=== PATIENT | female | born 1945 | race Caucasian/White ===

== ENCOUNTER → 2016-06-08 | Outpatient (CLI) | payer BC ==
[~2016-06-08] MED LIST: ALBUAER2 INH; AMLO-3; ATOR-22 PO; DORZ1SOL OPR; FERR325T51 PO; METF1TAB85; MULT-884; NEBI10TA2 PO; PANT40TA PO; SITA50TA5; SYMIN
--- NOTE | 2016-06-08 12:37 | MAMMOGRAPHY REPORT ---
BILATERAL DIGITAL SCREENING MAMMOGRAM WITH CAD: 06/08/2016 CLINICAL HISTORY: Routine screening. Patient has no complaints. TECHNIQUE: Bilateral CC and MLO views with repeat MLO views for more anterior compression were obta ined. Current study was also evaluated with a Computer Aided Detection (CAD) system. COMPARISON: Comparison is made to exams dated: 06/06/2015 mammogram, 04/20/2013 mammogram, 06/05/20 14 mammogram - [facility], and 07/08/2007. BREAST COMPOSITION: There are scattered areas of fibroglandular density in both breasts. FINDINGS: There is stable focal asymmetry in the right upper outer posterior breast. Scattered and grouped stable microcalcifications bilaterally. There are also benign rim calcifications in the rosalinda asts. No new suspicious mass, architectural distortion or cluster of microcalcifications is seen. IMPRESSION: ACR BI-RADS CATEGORY 1: NEGATIVE There is no mammographic evidence of malignancy. A 1 year screening mammogram is recommended. The p atient will receive written notification of the results. Approximately 10% of breast cancers are not detected with mammography. A negative mammographic repor t should not delay biopsy if a clinically suggestive mass is present. Antoinette Zamarripa M.D. ay/:06/08/2016 11:12:50 Records Management Assistant: Jane ZELAYA(R)(M), [facility] letter sent: Normal 1/2 BI-RADS Code: ACR BI-RADS Category 1: Negative
== END | disposition home or self-care (01) ==
LOC: C.MAMM 10:42
PROVIDERS: ATTEND Internal Medicine
DX: Z12.31 Encounter for screening mammogram for malignant neoplasm of breast (principal)

== ENCOUNTER → 2016-06-30 | Outpatient (CLI) | payer BC ==
[2016-06-30 12:22] LABS: BASO % 0.2 %; BASO ABS # 0.01 K/uL (0-0.2); COMPLETE YES; EOS % 3.1 %; HEMATOCRIT 34.1 % (37-47); IG% 0.2 %; LYMPH % 24.7 %; MEAN CELL VOLUME 87.9 fL (80-100); MEAN CORPUSCULAR HEMOGLOBIN 28.9 pg (25-34); MEAN CORPUSCULAR HGB CONC 32.8 g/dl (32-36); MEAN PLATELET VOLUME 11.3 fL (7.4-10.4); MONO % 8.9 %; NEUT % 62.9 %; PLATELET COUNT 225 K/uL (130-400); RED BLOOD COUNT 3.88 M/uL (4.2-5.4); WHITE BLOOD COUNT 6.07 K/uL (4.8-10.8)
[2016-06-30 12:24] LABS: BLOOD UREA NITROGEN 20 mg/dl (7-18); GLUCOSE 110 mg/dl (70-99)
[2016-06-30 12:25] LABS: ALT/SGPT 15 U/L (12-78); BUN/CREATININE RATIO 16.7 (10-20); CALCIUM 9.3 mg/dl (8.5-10.1); CARBON DIOXIDE 25 mmol/L (21-32); CHLORIDE 106 mmol/L (98-107); CHOLESTEROL 132 mg/dl (0-200); POTASSIUM 4.2 mmol/L (3.5-5.1); SODIUM 143 mmol/L (136-145); TRIGLYCERIDES 114 mg/dl (0-150); VERY LOW DENSITY LIPOPROT CALC 23 mg/dl
[2016-06-30 12:28] LABS: ESTIMATED AVERAGE GLUCOSE 126 mg/dl; HA1C FLAG Normal (Normal)
[2016-06-30 12:35] LABS: ALKALINE PHOSPHATASE 70 U/L (45-117); AST/SGOT 14 U/L (15-37); CHOLESTEROL/HDL RATIO 2.5; HDL CHOLESTEROL 53 mg/dl; LDL CHOLESTEROL CALCULATED 56 mg/dl
--- NOTE | 2016-07-06 13:41 | CODING QUERY MEDICAL NECESSITY ---
SUPPORTING DIAGNOSIS NEEDED A supporting diagnosis is required for the test/procedure performed on this patient in order for us to be reimbursed by the patient's insurance. Please provide a supporting diagnosis for the following test/procedure listed below next to the test name along with your signature. *If there is no additional diagnosis for this patient that would support the following test/procedure please document that below next to the test/procedure. Test(s)/Procedure(s) that require a supporting diagnosis: DOS 06/30 * Hba1c DIAGNOSIS: * Lipids DIAGNOSIS: * TSH DIAGNOSIS: Provider Signature: Date: Thank you Venita Kay Health Information Management Once completed, please kindly fax back to [phone] For questions please call [phone]
== END | disposition home or self-care (01) ==
LOC: C.LABBFT 11:05
PROVIDERS: ATTEND Internal Medicine
DX: G47.33 Obstructive sleep apnea (adult) (pediatric) (principal); E11.9 Type 2 diabetes mellitus without complications; E78.5 Hyperlipidemia, unspecified; D64.9 Anemia, unspecified

== ENCOUNTER → 2016-11-06 | Outpatient (CLI) | payer BC ==
[~2016-11-06] MED LIST changes: +AMLO5CAP2 PO; +ASPCH81X PO; +ASPEC81 PO; +DORZ2SOL17 OPR; +FERR1TAB23 PO; +FRRS300 PO; +LVNIS30 SQ; +METF-382 PO; +MULT-506 PO; +PRAMCRE2 PR; +SITA50TA5 PO; +SYMIN160 INH; +VNTHFA/IN INH
[2016-11-06 10:12] LABS: BASO % 0.3 %; BASO ABS # 0.02 K/uL (0-0.2); COMPLETE YES; EOS % 2.7 %; HEMATOCRIT 33.7 % (37-47); IG% 0.1 %; LYMPH % 17.7 %; LYMPH ABS # 1.19 K/uL (1.2-3.4); MEAN CELL VOLUME 89.9 fL (80-100); MEAN CORPUSCULAR HEMOGLOBIN 29.3 pg (25-34); MEAN CORPUSCULAR HGB CONC 32.6 g/dl (32-36); MEAN PLATELET VOLUME 11.2 fL (7.4-10.4); MONO % 9.7 %; NEUT % 69.5 %; PLATELET COUNT 202 K/uL (130-400); RED BLOOD COUNT 3.75 M/uL (4.2-5.4); WHITE BLOOD COUNT 6.71 K/uL (4.8-10.8)
[2016-11-06 10:54] LABS: FERRITIN 33.3 ng/ml (8.0-388.0)
== END | disposition home or self-care (01) ==
LOC: C.LAB 09:12
PROVIDERS: ATTEND Internal Medicine Hematology & Oncology
DX: D50.9 Iron deficiency anemia, unspecified (principal)

== ENCOUNTER → 2016-11-19 | Outpatient (CLI) | payer BC ==
--- NOTE | 2016-11-19 12:12 | DIAGNOSTIC IMAGING REPORT ---
ABDOMINAL ULTRASOUND COMPLETE HISTORY: ANEMIA. COMPARISON: None. FINDINGS: Pancreas: The pancreas demonstrates a normal echotexture. Liver: Unremarkable. Gallbladder: No gallbladder wall thickening. No gallstones. CBD: 6 mm Kidneys: Considerable cortical thinning bilaterally. No evidence for hydronephrosis. 4 cm upper pole right renal cyst. Spleen: Normal in size. Aorta: Normal in caliber. IVC: Patent. IMPRESSION: 1. Considerable cortical thinning and scarring of the kidneys bilaterally. 2. No evidence for hydronephrosis. 3. Right renal cyst. 4. Otherwise negative study Electronically signed by: Victoriano Swan M.D. 11/19/2016 12:10 PM Dictated Date/Time: 11/19/2016 12:06 PM
== END | disposition home or self-care (01) ==
LOC: C.ULTR 10:35
PROVIDERS: ATTEND Internal Medicine Hematology & Oncology
DX: D50.9 Iron deficiency anemia, unspecified (principal); N28.1 Cyst of kidney, acquired

== ENCOUNTER → 2017-01-01 | Outpatient (CLI) | payer BC ==
[~2017-01-01] MED LIST changes: -AMLO5CAP2 PO; -ASPCH81X PO; -ASPEC81 PO; -DORZ2SOL17 OPR; -FERR1TAB23 PO; -FRRS300 PO; -LVNIS30 SQ; -METF-382 PO; -MULT-506 PO; -PRAMCRE2 PR; -SITA50TA5 PO; -SYMIN160 INH; -VNTHFA/IN INH
[2017-01-01 13:45] LABS: BLOOD UREA NITROGEN 20 mg/dl (7-18); BUN/CREATININE RATIO 15.2 (10-20); CALCIUM 9.7 mg/dl (8.5-10.1); CARBON DIOXIDE 27 mmol/L (21-32); CHLORIDE 109 mmol/L (98-107); GLUCOSE 127 mg/dl (70-99); POTASSIUM 4.4 mmol/L (3.5-5.1); SODIUM 144 mmol/L (136-145)
[2017-01-01 14:35] LABS: ESTIMATED AVERAGE GLUCOSE 128 mg/dl; HA1C FLAG Normal (Normal)
== END | disposition home or self-care (01) ==
LOC: C.LABBC 11:44
PROVIDERS: ATTEND Internal Medicine
DX: E11.22 Type 2 diabetes mellitus with diabetic chronic kidney disease (principal); N18.3 Chronic kidney disease, stage 3 (moderate)

== ENCOUNTER → 2017-01-11 | Outpatient (CLI) | payer BC ==
[2017-01-11 15:29] LABS: BLOOD UREA NITROGEN 20 mg/dl (7-18); BUN/CREATININE RATIO 15.7 (10-20); CALCIUM 9.4 mg/dl (8.5-10.1); CARBON DIOXIDE 27 mmol/L (21-32); CHLORIDE 107 mmol/L (98-107); GLUCOSE 128 mg/dl (70-99); POTASSIUM 4.7 mmol/L (3.5-5.1); SODIUM 142 mmol/L (136-145)
[2017-01-11 15:30] LABS: PHOSPHORUS 3.4 mg/dl (2.5-4.9)
[2017-01-11 16:45] LABS: MANUAL MICROSCOPIC REQUIRED? NO; REVIEW REQ? NO; URINE APPEARANCE TURBID (CLEAR); URINE BILIRUBIN NEG (NEG); URINE COLOR DK YELLOW; URINE EPITHELIAL CELL AUTO >30 /lpf (0-5); URINE NITRITE NEG (NEG); URINE SPECIFIC GRAVITY 1.025 (1.000-1.030); UROBILINOGEN NEG (NEG)
[2017-01-11 17:11] LABS: URINE PROTIEN/CREAT RATIO 0.1 (0-0.2); URINE TOTAL PROTEIN 27.8 mg/dl (0-11.9)
== END | disposition home or self-care (01) ==
LOC: C.LAB1850 14:07
PROVIDERS: ATTEND Internal Medicine Nephrology
DX: N18.3 Chronic kidney disease, stage 3 (moderate) (principal)

== ENCOUNTER → 2017-02-10 | Outpatient (CLI) | payer BC | END | disposition home or self-care (01) | LOC: C.PATHSPEC 17:18 | PROVIDERS: ATTEND Plastic Surgery | DX: L82.1 Other seborrheic keratosis (principal) ==

== ENCOUNTER → 2017-02-12 | Outpatient (CLI) | payer BC ==
[2017-02-12 17:08] LABS: BLOOD UREA NITROGEN 24 mg/dl (7-18); BUN/CREATININE RATIO 18.3 (10-20); CALCIUM 8.9 mg/dl (8.5-10.1); CARBON DIOXIDE 26 mmol/L (21-32); CHLORIDE 110 mmol/L (98-107); GLUCOSE 134 mg/dl (70-99); POTASSIUM 4.4 mmol/L (3.5-5.1); SODIUM 141 mmol/L (136-145)
[2017-02-12 17:09] LABS: PHOSPHORUS 3.2 mg/dl (2.5-4.9)
== END | disposition home or self-care (01) ==
LOC: C.LAB1850 15:17
PROVIDERS: ATTEND Internal Medicine Nephrology
DX: N18.3 Chronic kidney disease, stage 3 (moderate) (principal)

== ENCOUNTER → 2017-04-21 | Day surgery (SDC) | payer BC ==
[2017-04-01 09:58] VITALS: Ht 160 cm; Wt 93.6 kg
[~2017-04-21] VITALS: Ht 160 cm; Wt 93.6 kg
[~2017-04-21] MED LIST changes: -ALBUAER2 INH; -AMLO-3; +AMLO5CAP2 PO; +ASPEC81 PO; -DORZ1SOL OPR; +DORZ2SOL17 OPR; +FERR1TAB23 PO; -FERR325T51 PO; +FRRS300 PO; +LVNIS30 SQ; +METF-382 PO; -METF1TAB85; +MULT-506 PO; -MULT-884; +PRAMCRE2 PR; -SITA50TA5; +SITA50TA5 PO; -SYMIN; +SYMIN160 INH; +VNTHFA/IN INH
== END | disposition home or self-care (01) ==
LOC: EDSTATUS 07:30 → C.PAT 12:03
PROVIDERS: ATTEND Specialist
DX: H26.9 Unspecified cataract (principal)

== ENCOUNTER → 2017-05-20 | Outpatient (CLI) | payer BC, OTHER | END | disposition home or self-care (01) | LOC: C.RDSM 13:15 | PROVIDERS: ATTEND Orthopaedic Surgery Sports Medicine | DX: Z96.7 Presence of other bone and tendon implants (principal) ==

== ENCOUNTER → 2017-06-30 | Outpatient (CLI) | payer BC ==
--- NOTE | 2017-06-30 14:40 | DIAGNOSTIC IMAGING REPORT ---
R PELVIS UNI HIP 2-3 V CLINICAL HISTORY: Follow-up right hip surgery. COMPARISON: Pelvis and right hip radiographs May 20 2017. FINDINGS: 3 cannulated right femoral neck screws are placed. Alignment of the subcapital right femoral neck fracture is anatomic. Subtle sclerosis is noted. These represent expected findings. No additional fractures are identified. Interval note is made of a bone island within the right superior pubic ramus. IMPRESSION: Expected findings following proximal right femoral internal fixation. Anatomic alignment of fracture with subtle sclerosis at fracture site. Electronically signed by: Adan Snider M.D. 06/30/2017 2:38 PM Dictated Date/Time: 06/30/2017 2:27 PM
== END | disposition home or self-care (01) ==
LOC: C.RDSM 19:34
PROVIDERS: ATTEND Physician Assistant
DX: Z09 Encounter for follow-up examination after completed treatment for conditions other than malignant neoplasm (principal)

== ENCOUNTER → 2017-07-20 | Outpatient (CLI) | payer BC ==
--- NOTE | 2017-07-21 15:22 | MAMMOGRAPHY REPORT ---
BILATERAL DIGITAL SCREENING MAMMOGRAM TOMOSYNTHESIS WITH CAD: 07/20/2017 CLINICAL HISTORY: Routine screening. Patient has no complaints. TECHNIQUE: Breast tomosynthesis in addition to standard 2D mammography was performed. Current study was also evaluated with a Computer Aided Detection (CAD) system. COMPARISON: Comparison is made to exams dated: 06/08/2016 mammogram, 06/06/2015 mammogram, 06/05/2014 mammogram, 04/20/2013 mammogram - [facility], 07/08/2007, and 01/20/2005 mammogram - [facility]. BREAST COMPOSITION: There are scattered areas of fibroglandular density in both breasts. FINDINGS: There is stable focal asymmetry with associated microcalcification in the upper outer post erior right breast, which appears similar on all available prior mammograms dating back to at least 1 06/20/2012, therefore likely benign. There are stable benign-appearing calcifications in the left sup erior breast. No suspicious mass, architectural distortion or cluster of microcalcifications is seen . IMPRESSION: ACR BI-RADS CATEGORY 1: NEGATIVE There is no mammographic evidence of malignancy. A 1 year screening mammogram is recommended. The pa tient will receive written notification of the results. Approximately 10% of breast cancers are not detected with mammography. A negative mammographic report should not delay biopsy if a clinically suggestive mass is present. Antoinette Zamarripa M.D. ay/:07/20/2017 16:15:38 Obstetrics Gyn: Blanca ZELAYA(Maty)([place]), [facility] letter sent: Normal 1/2 BI-RADS Code: ACR BI-RADS Category 1: Negative
== END | disposition home or self-care (01) ==
LOC: C.MAMM 09:58
PROVIDERS: ATTEND Internal Medicine
DX: Z12.31 Encounter for screening mammogram for malignant neoplasm of breast (principal)

== ENCOUNTER → 2017-08-02 | Outpatient (CLI) | payer BC | END | disposition home or self-care (01) | LOC: C.MAMM 09:53 | PROVIDERS: ATTEND Internal Medicine | DX: M85.88 Other specified disorders of bone density and structure, other site (principal) ==

== ENCOUNTER → 2017-08-06 | Outpatient (CLI) | payer BC | END | disposition home or self-care (01) | LOC: C.LABBFT 15:26 | PROVIDERS: ATTEND Internal Medicine Nephrology | DX: N18.3 Chronic kidney disease, stage 3 (moderate) (principal); D64.9 Anemia, unspecified; I25.10 Atherosclerotic heart disease of native coronary artery without angina pectoris; K22.70 Barrett's esophagus without dysplasia; Z68.36 Body mass index [BMI] 36.0-36.9, adult; E11.9 Type 2 diabetes mellitus without complications; E78.5 Hyperlipidemia, unspecified; I10 Essential (primary) hypertension; G47.33 Obstructive sleep apnea (adult) (pediatric); I27.29 Other secondary pulmonary hypertension ==

== ENCOUNTER → 2017-09-03 | Outpatient (CLI) | payer BC | END | disposition home or self-care (01) | LOC: C.LAB1850 08:37 | PROVIDERS: ATTEND Internal Medicine Rheumatology | DX: D47.2 Monoclonal gammopathy (principal); N18.3 Chronic kidney disease, stage 3 (moderate); S72.001A Fracture of unspecified part of neck of right femur, initial encounter for closed fracture; M80.00XA Age-related osteoporosis with current pathological fracture, unspecified site, initial encounter for fracture; E55.9 Vitamin D deficiency, unspecified; X58.XXXA Exposure to other specified factors, initial encounter ==

== ENCOUNTER → 2017-09-30 | Outpatient (CLI) | payer BC ==
[~2017-09-30] MED LIST changes: -ASPEC81 PO; +ASPI-320 PO
== END | disposition home or self-care (01) ==
LOC: C.RDSM 15:31
PROVIDERS: ATTEND Orthopaedic Surgery Sports Medicine
DX: Z96.7 Presence of other bone and tendon implants (principal)

== ENCOUNTER → 2017-12-30 | Outpatient (CLI) | payer BC ==
[~2017-12-30] MED LIST changes: -ASPI-320 PO; +ASPI81TA28 PO; +CALC-354 PO; -DORZ2SOL17 OPR; +DORZ2SOL19 OPR; -FRRS300 PO; -LVNIS30 SQ; -PRAMCRE2 PR
[2017-12-30 17:05] LABS: BASO % 0.1 %; BASO ABS # 0.01 K/uL (0-0.2); EOS % 1.9 %; EOS ABS # 0.13 K/uL (0-0.5); HEMATOCRIT 36.5 % (37-47); HEMOGLOBIN 11.7 g/dL (12.0-16.0); IG# 0.01 K/uL (0.00-0.02); LYMPH % 20.7 %; LYMPH ABS # 1.42 K/uL (1.2-3.4); MEAN CELL VOLUME 88.8 fL (80-100); MEAN CORPUSCULAR HEMOGLOBIN 28.5 pg (25-34); MEAN CORPUSCULAR HGB CONC 32.1 g/dl (32-36); MEAN PLATELET VOLUME 10.9 fL (7.4-10.4); MONO % 7.6 %; MONO ABS # 0.52 K/uL (0.11-0.59); NEUT % 69.6 %; NEUT ABS # 4.78 K/uL (1.4-6.5); PLATELET COUNT 229 K/uL (130-400); RED CELL DISTRIBUTION WIDTH CV 14.6 % (11.5-14.5); RED CELL DISTRIBUTION WIDTH SD 47.6 fL (36.4-46.3); WHITE BLOOD COUNT 6.87 K/uL (4.8-10.8)
[2017-12-30 17:24] LABS: ALBUMIN 3.7 gm/dl (3.4-5.0); ALKALINE PHOSPHATASE 78 U/L (45-117); ALT/SGPT 16 U/L (12-78); AST/SGOT 11 U/L (15-37); BLOOD UREA NITROGEN 25 mg/dl (7-18); CALCIUM 9.4 mg/dl (8.5-10.1); CARBON DIOXIDE 22 mmol/L (21-32); CREATININE 1.49 mg/dl (0.60-1.20); GLUCOSE 107 mg/dl (70-99); POTASSIUM 4.1 mmol/L (3.5-5.1); SODIUM 140 mmol/L (136-145); TOTAL PROTEIN 8.2 gm/dl (6.4-8.2)
[2017-12-31 06:11] LABS: HEMOGLOBIN A1C 6.2 % (4.5-5.6)
== END | disposition home or self-care (01) ==
LOC: C.LABBC 13:28
PROVIDERS: ATTEND Internal Medicine
DX: I25.10 Atherosclerotic heart disease of native coronary artery without angina pectoris (principal); E11.9 Type 2 diabetes mellitus without complications; D64.9 Anemia, unspecified; I10 Essential (primary) hypertension

== ENCOUNTER → 2018-01-04 | Outpatient (CLI) | payer BC ==
[2018-01-04 17:43] LABS: BLOOD UREA NITROGEN 21 mg/dl (7-18); CALCIUM 8.9 mg/dl (8.5-10.1); CARBON DIOXIDE 23 mmol/L (21-32); CREATININE 1.34 mg/dl (0.60-1.20); GLUCOSE 130 mg/dl (70-99); SODIUM 140 mmol/L (136-145)
== END | disposition home or self-care (01) ==
LOC: C.LABBFT 11:56
PROVIDERS: ATTEND Internal Medicine
DX: I25.10 Atherosclerotic heart disease of native coronary artery without angina pectoris (principal); E11.9 Type 2 diabetes mellitus without complications; E78.5 Hyperlipidemia, unspecified; I10 Essential (primary) hypertension

== ENCOUNTER 2020-06-23 02:26 | Inpatient (IN) ==
[2020-06-23] MEDS ORDERED: SODIUM CHLORIDE 0.9% 1000ML 500 ML IV ONE (02:49)
[2020-06-23] MEDS ORDERED: ACETAMINOPHEN 1,000 MG/100 ML VIAL IV STA (02:49)
[2020-06-23 03:07] LABS: Hematocrit (blood only) 32.2 % (37-47); Hemoglobin 10.5 g/dL (12.0-16.0); Mean Corpuscular Hemoglobin 28.8 pg (25-34); Mean Corpuscular Hgb Conc 32.6 g/dL (32-36); Mean Corpuscular Volume 88.2 fL (80-100); Mean Platelet Volume 10.8 fL (7.4-10.4); Platelet Count 284 K/uL (130-400); RDW Coefficient of Variation 14.4 % (11.5-14.5); RDW Standard Deviation 46.7 fL (36.4-46.3); Red Blood Count 3.65 M/uL (4.2-5.4); White Blood Count 7.36 K/uL (4.8-10.8)
[2020-06-23 03:17] LABS: INR 1.2 (0.9-1.1); Partial Thromboplastin Ratio 1.3; Partial Thromboplastin Time 36.7 Seconds (21.0-31.0); Prothrombin Time 12.4 Seconds (9.0-12.0)
[2020-06-23] MEDS ORDERED: METOPROLOL TARTRATE 1 MG/ML VIAL IV STA (03:17)
--- NOTE | 2020-06-23 03:17 | Emergency Department Note ---
ED Visit Note I have personally seen and evaluated the patient with the PA. I agree with the diagnosis and management decisions and have been personally involved in the case. Patient was started on HCTZ 12.5 mg and potassium chloride 20 mEq daily. Patient's questions were answered. Please see Orlando White PA-C's notes for further details of the history, physical and visit. She will return to the emergency department for worsening symptoms or any medical concerns. . : Fever Qualifiers: Fever type: unspecified Qualified Code(s): R50.9 - Fever, unspecified
[2020-06-23 03:26] LABS: Albumin Level 2.8 gm/dl (3.4-5.0); BUN Creatinine Ratio 18.5 (10-20); Calcium 8.6 mg/dl (8.5-10.1); Creatinine Clr Calc Pharmacy 36.6 ml/min; Est GFR (African American) 39.4; Magnesium 1.7 mg/dl (1.8-2.4); Potassium 3.9 mmol/L (3.5-5.1)
[2020-06-23 03:31] LABS: Basophils # (auto) 0.01 K/uL (0-0.2); Basophils % (auto) 0.1 %; Immature Granulocytes # (auto) 0.01 K/uL (0.00-0.02); Immature Granulocytes % (auto) 0.1 %; Lymphocytes # (auto) 0.58 K/uL (1.2-3.4); Lymphocytes % (auto) 7.9 %; Monocytes # (auto) 0.29 K/uL (0.11-0.59); Monocytes % (auto) 3.9 %; Neutrophils # (auto) 6.47 K/uL (1.4-6.5)
[2020-06-23 03:37] LABS: Albumin Globulin Ratio 0.6 (0.9-2); C Reactive Protein 14.1 mg/dl (0-0.29); Globulin 4.8 gm/dl (2.5-4.0); Total Protein 7.6 gm/dl (6.4-8.2); Troponin I 0.108 ng/ml (0-0.045)
[2020-06-23 03:44] LABS: Allen Test Pos (Pos); Base Excess ABG -2.6 mEq/L (-9-1.8); HCO3 ABG 22 mmol/L (19-24); Oxygen Saturation ABG 97.1 % (90-95); PCO2 ABG 35 mmHg (35-46); PO2 ABG 95 mmHg (80-95); pH ABG 7.41 (7.35-7.45)
[2020-06-23] MEDS ORDERED: DEXAMETHASONE SOD INJ 4 MG/ML VIAL IV STA (03:55)
[2020-06-23] MEDS ORDERED: DEXAMETHASONE SOD INJ 10 MG/ML VIAL ONE (04:02)
--- NOTE | 2020-06-23 04:12 | Emergency Department Note ---
History of Present Illness General Chief complaint: Weakness Stated complaint: COVID + - WEAKNESS,O2 LEVELS LOW Time Seen by Provider: 06/23/20 02:35 History of Present Illness This is a 75-year-old female presenting to the emergency department for evaluation of worsening weakness and decreased appetite over the past week. The patient tested POSITIVE for COVID-19 on 06/15/2020, 8 days ago. She states that she had a few days where she felt improved, but over the past 24 to 48 hours she has felt worse. The patient has generalized body aches and some difficulty with breathing. She has not been taking anything [id number] for her symptoms. She does have his very of coronary artery disease and states that she had her first heart attack at the age of 38. She is diabetic with history of asthma. The patient rates her overall discomfort an 8/10, prompting her presentation to the ER. Home Medications Medication Instructions Recorded Confirmed Type ferrous sulfate 325 mg PO DAILY #0 04/01/17 06/23/20 History multivitamin 1 tab PO DAILY #0 tab 04/01/17 06/23/20 History calcium carbonate-vitamin D3 1 tab PO DAILY #0 12/14/17 06/23/20 History [Calcium 600 with Vitamin D3] cholecalciferol (vitamin D3) 1,000 unit PO DAILY 10/27/18 06/23/20 History [Vitamin D3] chromium picolinate 1,000 mcg PO DAILY 10/27/18 06/23/20 History blood sugar diagnostic #10 ea 02/02/19 02/08/20 History dorzolamide 2 % eye drops 1 drp OPHTHALMIC (EYE) BID #0 02/15/19 06/23/20 History metformin 500 mg tablet,extended 1,000 mg PO QPM #180 tab 09/15/19 06/23/20 Rx release 24hr nebivolol 10 mg tablet 10 mg PO DAILY #90 tab 10/18/19 06/23/20 Rx atorvastatin 20 mg tablet 20 mg PO DAILY #90 tab 12/20/19 06/23/20 Rx fluticasone furoate 200 1 inh INH DAILY #90 ea 03/14/20 06/23/20 Rx mcg-vilanterol 25 mcg/dose inhalation powder sitagliptin 50 mg-metformin 500 mg 1 tab PO DAILY #90 tab 04/17/20 06/23/20 Rx tablet amlodipine 5 mg-olmesartan 20 mg 1 tab PO DAILY #90 tab 05/06/20 06/23/20 Rx tablet pantoprazole 40 mg tablet,delayed 40 mg PO DAILY #90 tab 05/27/20 06/23/20 Rx release albuterol sulfate 90 mcg/actuation 2 puff INHALATION Q6H PRN #1 06/14/20 06/23/20 Rx aerosol inhaler inhaler aspirin 81 mg PO DAILY 06/23/20 06/23/20 History ondansetron HCl [Zofran] 4 mg PO Q8H PRN 06/23/20 06/23/20 History Allergies Allergy/AdvReac Type Severity Reaction Status Date / Time Iodinated Contrast Media Allergy Intermediate HIVES, Verified 06/23/20 04:26 ITCHING brimonidine Allergy Mild RED AND Verified 06/23/20 04:26 ITCHY Past Med/Surg History Medical History (Updated 06/23/20 @ 06:40 by Rosalie Jimenez DO) Anemia Asthma Barretts esophagus Bilateral lower extremity edema Bruit of left carotid artery CAD (coronary artery disease) Cardiomyopathy CKD (chronic kidney disease), stage III Dyslipidemia Elbow fracture, right GERD (gastroesophageal reflux disease) Glaucoma Hip fracture requiring operative repair right pinning and screws Hip fracture, right History of obstructive sleep apnea Hypertension Left bundle branch block Mild vitamin D deficiency Monoclonal gammopathy of undetermined significance Murmur Myocardial Infarction Osteoarthritis bilateral hands Osteoporosis Pulmonary hypertension Type 2 diabetes mellitus Surgical History History of cataract surgery History of colonoscopy History of esophagogastroduodenoscopy (EGD) History of tubal ligation Family History Mother FHx: cancer Family/Other Asthma Diabetes Social History Smoking Status: Never smoker Hx Alcohol Use: No Hx Substance Use: No Preferred Language: Azerbaijani Communication Ability: Effective Visual Impairment: Limited Hearing Ability: Normal Estimate Clerk Required: No Beliefs That Will Affect Care: None marital status: Current Living Situation: Spouse current occupational status: retired Other Information That Helps Us Care for You: No Feels Safe at Home: Yes Safety Concerns: Feels Safe At This Time Childhood Exposure to Second-Hand Smoke: Yes caffeine: Yes Dental Care, Regularly: Yes Physical Activity Frequency: 3-4 Times per Week Seatbelt Use: always Sunscreen Use: No Assistive Devices: Cane, Glasses and Oxygen - Continuous Review of Systems A total of 10 systems reviewed and were otherwise negative Physical Exam Vital Signs Vital Signs - 24 hr 06/23/20 02:39 06/23/20 02:45 06/23/20 03:00 Temperature 37.9 C H Temperature Source Oral Pulse Rate 120 H 120 H 116 H Pulse Rate from SpO2 Sensor 117 H Pulse Rhythm Irregular Irregular Respiratory Rate 24 24 29 H Respiratory Effort / Characteristics Non-Labored Spontaneous Respiratory Depth Normal Respiratory Pattern Regular Blood Pressure 128/84 109/77 Blood Pressure Mean 98 87 Blood Pressure Position Lying Pulse Oximetry 95 95 95 Oxygen Delivery Method Nasal Cannula Nasal Cannula Nasal Cannula Oxygen Flow Rate 4 4 4 Sepsis Recent Fever Within 48 Hours No Sepsis New/Unexplained Change in Mental Status No Sepsis Action Taken by Nursing Adv Provider Prev Notifie Oxygen Flow Rate - Titration 4 Pulse Oximetry Post Tiitration 95 06/23/20 03:30 06/23/20 04:01 06/23/20 04:30 Temperature Temperature Source Pulse Rate 122 H 97 H 65 Pulse Rate from SpO2 Sensor 104 H 102 H 63 Pulse Rhythm Respiratory Rate 27 H 25 H 28 H Respiratory Effort / Characteristics Respiratory Depth Respiratory Pattern Blood Pressure 105/41 L 127/71 111/79 Blood Pressure Mean 70 85 85 Blood Pressure Position Pulse Oximetry 95 97 94 Oxygen Delivery Method Nasal Cannula Nasal Cannula Nasal Cannula Oxygen Flow Rate 4 4 Sepsis Recent Fever Within 48 Hours Sepsis New/Unexplained Change in Mental Status Sepsis Action Taken by Nursing Oxygen Flow Rate - Titration Pulse Oximetry Post Tiitration 06/23/20 04:31 Temperature 37.6 C H Temperature Source Oral Pulse Rate Pulse Rate from SpO2 Sensor Pulse Rhythm Respiratory Rate Respiratory Effort / Characteristics Respiratory Depth Respiratory Pattern Blood Pressure Blood Pressure Mean Blood Pressure Position Pulse Oximetry Oxygen Delivery Method Oxygen Flow Rate Sepsis Recent Fever Within 48 Hours Sepsis New/Unexplained Change in Mental Status Sepsis Action Taken by Nursing Oxygen Flow Rate - Titration Pulse Oximetry Post Tiitration VITALS: Vitals are noted on the nurse's note and reviewed by myself. Vital signs with tachycardia and elevated temperature GENERAL: Ill appearing white female who is pleasant and cooperative HEAD: Normocephalic atraumatic. NECK: Supple without nuchal rigidity. No lymphadenopathy. No thyromegaly. Cervical spine is nontender. HEART: Irregularly irregular with elevated rate LUNGS: Generally clear with scattered wheezing ABDOMEN: Positive normal bowel sounds x 4. Soft, nontender, without masses or organomegaly. No guarding or rebound tenderness. MUSCULOSKELETAL: No muscle atrophy, erythema, or edema noted. Full range of motion in all extremities. NEURO: Patient was alert and oriented to person place and time. CN II through XII grossly intact. Course Administered Medications Albuterol (Albuterol Hfa 8 Gm Inhaler) 2 puffs INH Q4R CONNIE Stop: 07/23/20 06:59 Last Admin: 06/23/20 19:28 Dose: 2 puffs Documented by: [id number] Admin: 06/23/20 15:46 Dose: 2 puffs Documented by: [id number] Admin: 06/23/20 12:02 Dose: 2 puffs Documented by: [id number] Admin: 06/23/20 08:23 Dose: 2 puffs Documented by: [id number] Amlodipine Besylate (Amlodipine Besylate 5 Mg Tab) 5 mg PO DAILY CONNIE Stop: 07/23/20 08:59 Last Admin: 06/23/20 08:52 Dose: 5 mg Documented by: [id number] Aspirin (Aspirin 81 Mg Ectab) 81 mg PO DAILY CONNIE Stop: 07/23/20 08:59 Last Admin: 06/23/20 08:52 Dose: 81 mg Documented by: [id number] Atorvastatin Calcium (Atorvastatin 20 Mg Tab) 20 mg PO DAILY CONNIE Stop: 07/23/20 08:59 Last Admin: 06/23/20 08:54 Dose: 20 mg Documented by: [id number] Dorzolamide HCl (Dorzolamide Hcl 2% Oph Soln 10 Ml Btl) 1 drops OP BID CONNIE Stop: 07/23/20 08:59 Last Admin: 06/23/20 21:04 Dose: 1 drops Documented by: [id number] Admin: 06/23/20 08:52 Dose: 1 drops Documented by: [id number] Enoxaparin Sodium (Enoxaparin 100 Mg/1ml Syr) 100 mg SC Q12H CONNIE Stop: 07/23/20 05:59 Last Admin: 06/23/20 21:03 Dose: 100 mg Documented by: [id number] Fluticasone/Vilanterol (Fluticasone/Vilanterol 200/25mcg 14 Puffs/Inhaler) 1 puffs INH DAILY CONNIE Stop: 07/23/20 08:59 Last Admin: 06/23/20 08:54 Dose: 1 puffs Documented by: [id number] Insulin Aspart (Insulin Aspart 100 Units/Ml 3 Ml Pen) 0 units SC ACHS [facility] Stop: 07/23/20 07:29 Last Admin: 06/23/20 21:06 Dose: 5 units Documented by: [id number] Cosigned by: [id number] Admin: 06/23/20 17:29 Dose: 11 units Documented by: [id number] Cosigned by: [id number] Admin: 06/23/20 12:30 Dose: 14 units Documented by: [id number] Cosigned by: [id number] Admin: 06/23/20 08:53 Dose: 6 units Documented by: [id number] Cosigned by: [id number] Metoprolol Tartrate (Metoprolol Tartrate 50 Mg Tab) 50 mg PO BID [facility] Stop: 07/23/20 08:59 Last Admin: 06/23/20 21:03 Dose: 50 mg Documented by: [id number] Admin: 06/23/20 08:54 Dose: 50 mg Documented by: [id number] Olmesartan (Olmesartan Medoxomil 20 Mg Tab) 20 mg PO DAILY [facility] Stop: 07/23/20 08:59 Last Admin: 06/23/20 08:54 Dose: 20 mg Documented by: [id number] Pantoprazole Sodium (Pantoprazole 40 Mg Tab) 40 mg PO DAILY [facility] Stop: 07/23/20 08:59 Last Admin: 06/23/20 08:54 Dose: 40 mg Documented by: [id number] Vitamin D (Cholecalciferol 1,000 Units 25 Mcg Tab) 1,000 units PO DAILY CONNIE Stop: 07/23/20 08:59 Last Admin: 06/23/20 08:54 Dose: 1,000 units Documented by: [id number] Discontinued Medications Dexamethasone (Dexamethasone Sod Inj 4 Mg/Ml Vial) 6 mg IV NOW STA Stop: 06/23/20 03:56 Last Admin: 06/23/20 04:09 Dose: Not Given Documented by: [id number] Dexamethasone (Dexamethasone Sod Inj 10 Mg/Ml Vial) Confirm Administered Dose 10 mg .ROUTE .STK-MED ONE Stop: 06/23/20 04:03 Last Admin: 06/23/20 04:03 Dose: 6 mg Documented by: [id number] Enoxaparin Sodium (Enoxaparin 100 Mg/1ml Syr) 90 mg SC Q12H CONNIE Stop: 07/23/20 05:59 Last Admin: 06/23/20 08:52 Dose: 90 mg Documented by: [id number] Acetaminophen (Ofirmev) 1,000 mg in 100 mls @ 400 mls/hr IV NOW STA Stop: 06/23/20 03:03 Last Infusion: 06/23/20 04:01 Dose: 0 mls/hr Documented by: [id number] Admin: 06/23/20 03:20 Dose: 400 mls/hr Documented by: [id number] Sodium Chloride (Nss 1000ml) 500 mls @ 999 mls/hr IV .Q31M ONE Stop: 06/23/20 03:19 Last Infusion: 06/23/20 04:01 Dose: 0 mls/hr Documented by: [id number] Admin: 06/23/20 03:20 Dose: 999 mls/hr Documented by: [id number] Magnesium Sulfate/Dextrose (Magnesium Sulfate / D5w) 1 gm in 100 mls @ 50 mls/hr IV Q2H CONNIE Stop: 06/23/20 09:59 Last Infusion: 06/23/20 11:24 Dose: 0 mls/hr Documented by: [id number] Admin: 06/23/20 08:51 Dose: 50 mls/hr Documented by: [id number] Infusion: 06/23/20 08:15 Dose: 0 mls/hr Documented by: [id number] Admin: 06/23/20 06:14 Dose: 50 mls/hr Documented by: [id number] Magnesium Sulfate/Dextrose (Magnesium Sulfate / D5w) 1 gm in 100 mls @ 50 mls/hr IV Q2H CONNIE Stop: 06/23/20 11:14 Last Admin: 06/23/20 11:25 Dose: Not Given Documented by: [id number] Admin: 06/23/20 11:25 Dose: Not Given Documented by: [id number] Insulin Aspart (Insulin Aspart 100 Units/Ml 3 Ml Pen) 10 units SC NOW ONE Stop: 06/23/20 09:16 Last Admin: 06/23/20 09:33 Dose: 10 units Documented by: [id number] Cosigned by: [id number] Insulin Glargine (Insulin Glargine Solostar 100 Units/Ml 3 Ml Pen) 12 units SC BID CONNIE Stop: 07/23/20 08:59 Last Admin: 06/23/20 08:55 Dose: 12 units Documented by: [id number] Cosigned by: [id number] Insulin Glargine (Insulin Glargine Solostar 100 Units/Ml 3 Ml Pen) 30 units SC NOW ONE Stop: 06/23/20 09:16 Last Admin: 06/23/20 09:33 Dose: 30 units Documented by: [id number] Cosigned by: [id number] Metoprolol Tartrate (Metoprolol Tartrate 1 Mg/Ml Vial) 5 mg IV NOW STA Stop: 06/23/20 03:18 Last Admin: 06/23/20 04:01 Dose: 5 mg Documented by: [id number] Critical Care Time I have personally spent greater than 37 minutes of critical care time in the direct management of this patient. This includes bedside care, interpretation of diagnostic studies, and testing, discussion with consultants, patient, and family members, and other required patient management activities. This 37 minutes is in excess of all separately billable procedures. Medical Decision Making Differential Diagnosis Differential diagnosis includes, but is not limited to: COVID-19 infection, respiratory distress, myocardial infarction, dysrhythmia, pericarditis, pneumothorax, aortic aneurysm/dissection, DVT/PE, anxiety, GERD, PUD, electrolyte imbalance, thyroid disorder, pneumonia, bronchitis, pancreatitis, and others Laboratory Data Result diagrams: 06/23/20 02:55 06/23/20 02:55 Lab Results 06/23/20 06/23/20 06/23/20 Range/Units 02:48 02:48 02:55 WBC 7.36 (4.8-10.8) K/uL RBC 3.65 L (4.2-5.4) M/uL Hgb 10.5 L (12.0-16.0) g/dL Hct 32.2 L (37-47) % MCV 88.2 (80-100) fL MCH 28.8 (25-34) pg MCHC 32.6 (32-36) g/dL RDW Std Deviation 46.7 H (36.4-46.3) fL RDW Coeff of Aman 14.4 (11.5-14.5) % Plt Count 284 (130-400) K/uL MPV 10.8 H (7.4-10.4) fL Immature Gran % (Auto) 0.1 % Neut % (Auto) 88.0 % Lymph % (Auto) 7.9 % [place] % (Auto) 3.9 % Eos % (Auto) 0.0 % Baso % (Auto) 0.1 % Neut # (Auto) 6.47 (1.4-6.5) K/uL Lymph # (Auto) 0.58 L (1.2-3.4) K/uL [place] # (Auto) 0.29 (0.11-0.59) K/uL Eos # (Auto) 0.00 (0-0.5) K/uL Baso # (Auto) 0.01 (0-0.2) K/uL Immature Gran # (Auto) 0.01 (0.00-0.02) K/uL ESR (0-21) mm/hr PT (9.0-12.0) Seconds INR (0.9-1.1) APTT (21.0-31.0) Seconds PTT Ratio D-Dimer 3330 H* (0-500) ug/L FEU ABG pH (7.35-7.45) ABG pCO2 (35-46) mmHg ABG pO2 (80-95) mmHg ABG HCO3 (19-24) mmol/L ABG O2 Saturation (90-95) % ABG Base Excess (-9-1.8) mEq/L Smith Test (Pos) Oxygen Given Sodium (136-145) mmol/L Potassium (3.5-5.1) mmol/L Chloride (98-107) mmol/L Carbon Dioxide (21-32) mmol/L Anion Gap (3-11) BUN (7-18) mg/dl Creatinine (0.6-1.2) mg/dl Est Cr Clr Drug Dosing ml/min Est GFR ( Amer) Est GFR (Non-Af Amer) BUN/Creatinine Ratio (10-20) Glucose (70-99) mg/dl Lactate (0.4-2.0) mmol/L Calcium (8.5-10.1) mg/dl Magnesium (1.8-2.4) mg/dl Total Bilirubin (0.2-1) mg/dl AST (15-37) U/L ALT (12-78) U/L Alkaline Phosphatase (45-117) U/L Troponin I (0-0.045) ng/ml C-Reactive Protein (0-0.29) mg/dl NT-Pro-B Natriuret Pep (0-900) pg/ml Total Protein (6.4-8.2) gm/dl Albumin (3.4-5.0) gm/dl Globulin (2.5-4.0) gm/dl Albumin/Globulin Ratio (0.9-2) Procalcitonin < 0.05 (0-0.5) ng/ml 06/23/20 06/23/20 06/23/20 Range/Units 02:55 02:55 02:55 WBC (4.8-10.8) K/uL RBC (4.2-5.4) M/uL Hgb (12.0-16.0) g/dL Hct (37-47) % MCV (80-100) fL MCH (25-34) pg MCHC (32-36) g/dL RDW Std Deviation (36.4-46.3) fL RDW Coeff of Aman (11.5-14.5) % Plt Count (130-400) K/uL MPV (7.4-10.4) fL Immature Gran % (Auto) % Neut % (Auto) % Lymph % (Auto) % [place] % (Auto) % Eos % (Auto) % Baso % (Auto) % Neut # (Auto) (1.4-6.5) K/uL Lymph # (Auto) (1.2-3.4) K/uL [place] # (Auto) (0.11-0.59) K/uL Eos # (Auto) (0-0.5) K/uL Baso # (Auto) (0-0.2) K/uL Immature Gran # (Auto) (0.00-0.02) K/uL ESR 75 H (0-21) mm/hr PT 12.4 H (9.0-12.0) Seconds INR 1.2 H (0.9-1.1) APTT 36.7 H (21.0-31.0) Seconds PTT Ratio 1.3 D-Dimer (0-500) ug/L FEU ABG pH (7.35-7.45) ABG pCO2 (35-46) mmHg ABG pO2 (80-95) mmHg ABG HCO3 (19-24) mmol/L ABG O2 Saturation (90-95) % ABG Base Excess (-9-1.8) mEq/L Smith Test (Pos) Oxygen Given Sodium 134 L (136-145) mmol/L Potassium 3.9 (3.5-5.1) mmol/L Chloride 104 (98-107) mmol/L Carbon Dioxide 26 (21-32) mmol/L Anion Gap 4.0 (3-11) BUN 28 H (7-18) mg/dl Creatinine 1.50 H (0.6-1.2) mg/dl Est Cr Clr Drug Dosing 36.6 ml/min Est GFR ( Amer) 39.4 Est GFR (Non-Af Amer) 34.0 BUN/Creatinine Ratio 18.5 (10-20) Glucose 222 H (70-99) mg/dl Lactate (0.4-2.0) mmol/L Calcium 8.6 (8.5-10.1) mg/dl Magnesium 1.7 L (1.8-2.4) mg/dl Total Bilirubin 1.0 (0.2-1) mg/dl AST 25 (15-37) U/L ALT 16 (12-78) U/L Alkaline Phosphatase 64 (45-117) U/L Troponin I 0.108 H* (0-0.045) ng/ml C-Reactive Protein 14.10 H (0-0.29) mg/dl NT-Pro-B Natriuret Pep 24706 H (0-900) pg/ml Total Protein 7.6 (6.4-8.2) gm/dl Albumin 2.8 L (3.4-5.0) gm/dl Globulin 4.8 H (2.5-4.0) gm/dl Albumin/Globulin Ratio 0.6 L (0.9-2) Procalcitonin (0-0.5) ng/ml 06/23/20 06/23/20 Range/Units 03:16 03:16 WBC (4.8-10.8) K/uL RBC (4.2-5.4) M/uL Hgb (12.0-16.0) g/dL Hct (37-47) % MCV (80-100) fL MCH (25-34) pg MCHC (32-36) g/dL RDW Std Deviation (36.4-46.3) fL RDW Coeff of Aman (11.5-14.5) % Plt Count (130-400) K/uL MPV (7.4-10.4) fL Immature Gran % (Auto) % Neut % (Auto) % Lymph % (Auto) % [place] % (Auto) % Eos % (Auto) % Baso % (Auto) % Neut # (Auto) (1.4-6.5) K/uL Lymph # (Auto) (1.2-3.4) K/uL [place] # (Auto) (0.11-0.59) K/uL Eos # (Auto) (0-0.5) K/uL Baso # (Auto) (0-0.2) K/uL Immature Gran # (Auto) (0.00-0.02) K/uL ESR (0-21) mm/hr PT (9.0-12.0) Seconds INR (0.9-1.1) APTT (21.0-31.0) Seconds PTT Ratio D-Dimer (0-500) ug/L FEU ABG pH 7.41 (7.35-7.45) ABG pCO2 35 (35-46) mmHg ABG pO2 95 (80-95) mmHg ABG HCO3 22 (19-24) mmol/L ABG O2 Saturation 97.1 H (90-95) % ABG Base Excess -2.6 (-9-1.8) mEq/L Smith Test Pos (Pos) Oxygen Given 4L Sodium (136-145) mmol/L Potassium (3.5-5.1) mmol/L Chloride (98-107) mmol/L Carbon Dioxide (21-32) mmol/L Anion Gap (3-11) BUN (7-18) mg/dl Creatinine (0.6-1.2) mg/dl Est Cr Clr Drug Dosing ml/min Est GFR ( Amer) Est GFR (Non-Af Amer) BUN/Creatinine Ratio (10-20) Glucose (70-99) mg/dl Lactate 1.0 (0.4-2.0) mmol/L Calcium (8.5-10.1) mg/dl Magnesium (1.8-2.4) mg/dl Total Bilirubin (0.2-1) mg/dl AST (15-37) U/L ALT (12-78) U/L Alkaline Phosphatase (45-117) U/L Troponin I (0-0.045) ng/ml C-Reactive Protein (0-0.29) mg/dl NT-Pro-B Natriuret Pep (0-900) pg/ml Total Protein (6.4-8.2) gm/dl Albumin (3.4-5.0) gm/dl Globulin (2.5-4.0) gm/dl Albumin/Globulin Ratio (0.9-2) Procalcitonin (0-0.5) ng/ml ECG Data Attestation: I personally reviewed and interpreted this ECG as follows: Additional Comments: Atrial fibrillation with rapid ventricular response with premature ventricular or aberrantly conducted complexes @[address] elevation Left axis deviation Left bundle branch block Abnormal ECG When compared with ECG of 08-APR-2017 06:55, Atrial fibrillation has replaced Sinus rhythm MDM Narrative Physical exam and history were performed. Nursing notes, EMR, and Medication List were personally reviewed. Patient appears to have weakness in the context of a positive COVID-19 infection. On examination she appears ill and presenting O2 saturation was 84 to 85%. She does not wear oxygen at home and this was applied via nasal cannula and turned up to 4 L, and this did normalize her O2 saturation around 93%. IV access was established and labs were obtained. EKG was performed as above, and she does appear to be in atrial fibrillation with RVR. Old EKGs were reviewed and this appears to be the first time she is in A. fib. She was given IV L opressor. X-ray was performed and reviewed by myself and appears consistent with a Covid pneumonia. Official radiology read pending. Blood cultures and lactic were gathered. ABG was performed. The patient's blood work is as above and was reviewed. The patient's blood work is as above and was reviewed. She does not have a significantly elevated white blood cell count. She is slightly anemic at 10.5. INR is 1.2 ABG is fairly unremarkable. She does have an elevated creatinine of 1.5, however this is roughly her baseline. Glucose is 222. Lactic acid is negative. The patient does have a notably elevated CRP of 14, as well as an elevated troponin of 0.108. The case was discussed with my attending physician, and overall the patient does not appear well for discharge home. She is hypoxic with elevated troponin in the context of a COVID-19 infection. The case was discussed with the on-call hospital team who agreed to evaluate patient here in the ER. Please see their dictation for further patient course, plan, and disposition. The chart was completed utilizing [employer] Speech Voice Recognition Software. Grammatical errors, random word insertions, pronoun errors, and incomplete sentences are an occasional consequence of this system due to software limitations, ambient noise, and hardware issues. Any formal questions or concerns about the content, text, or information contained within the body of this dictation should be directly addressed to the provider for clarification. . Impression & Plan Acute respiratory distress, COVID-19, Elevated troponin, Fever, Atrial fibrillation with rapid ventricular response Discharge Plan Visit Data Chief Complaint: Weakness Stated Complaint: COVID + - WEAKNESS,O2 LEVELS LOW ED Provider: Doris Jones ED Midlevel Provider: Orlando White Discharge Problem: Acute respiratory distress, COVID-19, Elevated troponin, Fever, Atrial fibrillation with rapid ventricular response Patient Disposition: Admitted As Inpatient Discharge Instructions Interventions: ED Discharge Assessment Last Done: 06/23/20 05:19 Discharge Problem: Fever Qualifiers: Fever type: unspecified Qualified Code(s): R50.9 - Fever, unspecified
[2020-06-23 04:54] LABS: D Dimer 3330 ug/L FEU (0-500)
--- NOTE | 2020-06-23 05:02 | History & Physical Report ---
Date of Service June 23, 2020 Assessment & Plan (1) COVID-19: Patient with Covid-19 infection diagnosed on 06/15/20. Hypoxic on arrival at 82% on RA. Afebrile. Late in illness - would not likely benefit from treatment with Remdesivir or plasma at this time Age, comorbid conditions place her at risk for severe disease. Elevated CRP of 14.1, normal procalcitonin. Elevated BNP. -Admit to medical with telemetry -Maintain isolation precautions -Dexamethasone 6mg IV daily -Elevated Ddimer most likely in setting of Covid infection. Will not obtain CTA chest at this time -Supplemental O2 as needed to maintain oxygenation >94% Present on Admission?: Yes (2) Elevated troponin: Patient denies CP. ?Demand ischemia in setting of atrial fibrillation -trend troponin Present on Admission?: Yes (3) Atrial fibrillation with rapid ventricular response: New on arrival to ER s/p return to NSR after IV Metoprolol -Lovenox full dose 1mg/kg BID - hypercoag state with Covid -Telemetry monitoring Present on Admission?: Yes (4) Asthma: Chronic -COntinue Fluticasone/VIlanterol -Albuterol PRN Present on Admission?: Yes (5) GERD (gastroesophageal reflux disease): Chronic. -Protonix 40mg po daily Present on Admission?: Yes (6) Glaucoma: Chronic -Continue Dorzolamide Present on Admission?: Yes (7) Type 2 diabetes mellitus: Chronic -Hold home medications -Lantus 12u BID -ISS -Goal blood sugar 100-140 Present on Admission?: Yes (8) CKD (chronic kidney disease), stage III: Avoid nephrotoxic agents -Monitor renal function and electrolytes Present on Admission?: Yes (9) Dyslipidemia: Chronic -Continue Atorvastatin Present on Admission?: Yes (10) CAD (coronary artery disease): Chronic. -Continue ASA, Atorvastatin, Metoprolol, Olmesartan Present on Admission?: Yes (11) Hypertension: Blood pressure stable -Continue Amlodipine -Continue Olmesartan -Continue Metoprolol Present on Admission?: Yes (12) Mild vitamin D deficiency: Chronic -Continue Vitamin D supplementation Present on Admission?: Yes (13) Left bundle branch block: Chronic. Noted F/E/N -Diuresis. Monitor electolytes, Mg repletion. CC/Heart healthy diet as tolerated Ppx - Full dose Lovenox in setting of AF Code - Full Dispo - Admit to medical / tele Present on Admission?: Yes History of Present Illness Chief Complaint: weakness Primary Care Provider: Rojelio Orona MD Nata Sousa is a 75yo C female with history of DM, HTN, HLP, CKD presenting with weakness, poor appetite. She was diagnosed with Covid-19 on 06/15/20. She has had nausea, diarrhea, poor appetite and weakness since then as well as altered taste sensation - states that everything tastes very sweet to her. She has a cough productive for scant yellow sputum. She denies fever, chills, SOB, CP or palpitations. 82% on room air on arrival Atrial fibrillation on arrival with no history of AF She is doing well with no additional complaints at this time. ER Course: Metoprolol, Tylenol, NSS Allergies Allergy/AdvReac Type Severity Reaction Status Date / Time Iodinated Contrast Media Allergy Intermediate HIVES, Verified 06/23/20 04:26 ITCHING brimonidine Allergy Mild RED AND Verified 06/23/20 04:26 ITCHY Home Medications Medication Instructions Recorded Confirmed Type ferrous sulfate 325 mg PO DAILY #0 04/01/17 06/23/20 History multivitamin 1 tab PO DAILY #0 tab 04/01/17 06/23/20 History calcium carbonate-vitamin D3 1 tab PO DAILY #0 12/14/17 06/23/20 History [Calcium 600 with Vitamin D3] cholecalciferol (vitamin D3) 1,000 unit PO DAILY 10/27/18 06/23/20 History [Vitamin D3] chromium picolinate 1,000 mcg PO DAILY 10/27/18 06/23/20 History blood sugar diagnostic #10 ea 02/02/19 02/08/20 History dorzolamide 2 % eye drops 1 drp OPHTHALMIC (EYE) BID #0 02/15/19 06/23/20 History metformin 500 mg tablet,extended 1,000 mg PO QPM #180 tab 09/15/19 06/23/20 Rx release 24hr nebivolol 10 mg tablet 10 mg PO DAILY #90 tab 10/18/19 06/23/20 Rx atorvastatin 20 mg tablet 20 mg PO DAILY #90 tab 12/20/19 06/23/20 Rx fluticasone furoate 200 1 inh INH DAILY #90 ea 03/14/20 06/23/20 Rx mcg-vilanterol 25 mcg/dose inhalation powder sitagliptin 50 mg-metformin 500 mg 1 tab PO DAILY #90 tab 04/17/20 06/23/20 Rx tablet amlodipine 5 mg-olmesartan 20 mg 1 tab PO DAILY #90 tab 05/06/20 06/23/20 Rx tablet pantoprazole 40 mg tablet,delayed 40 mg PO DAILY #90 tab 05/27/20 06/23/20 Rx release albuterol sulfate 90 mcg/actuation 2 puff INHALATION Q6H PRN #1 06/14/20 06/23/20 Rx aerosol inhaler inhaler aspirin 81 mg PO DAILY 06/23/20 06/23/20 History ondansetron HCl [Zofran] 4 mg PO Q8H PRN 06/23/20 06/23/20 History Past Med/Surg History Medical History (Updated 06/23/20 @ 06:40 by Rosalie Jimenez DO) Anemia Asthma Barretts esophagus Bilateral lower extremity edema Bruit of left carotid artery CAD (coronary artery disease) Cardiomyopathy CKD (chronic kidney disease), stage III Dyslipidemia Elbow fracture, right GERD (gastroesophageal reflux disease) Glaucoma Hip fracture requiring operative repair right pinning and screws Hip fracture, right History of obstructive sleep apnea Hypertension Left bundle branch block Mild vitamin D deficiency Monoclonal gammopathy of undetermined significance Murmur Myocardial Infarction Osteoarthritis bilateral hands Osteoporosis Pulmonary hypertension Type 2 diabetes mellitus Surgical History History of cataract surgery History of colonoscopy History of esophagogastroduodenoscopy (EGD) History of tubal ligation Family History Mother FHx: cancer Family/Other Asthma Diabetes Social History Smoking Status: Never smoker Hx Alcohol Use: No Hx Substance Use: No Preferred Language: Panamanian Communication Ability: Effective Visual Impairment: Limited Hearing Ability: Normal 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: No Beliefs That Will Affect Care: None marital status: Current Living Situation: Spouse current occupational status: retired Other Information That Helps Us Care for You: No Feels Safe at Home: Yes Safety Concerns: Feels Safe At This Time Childhood Exposure to Second-Hand Smoke: Yes caffeine: Yes Dental Care, Regularly: Yes Physical Activity Frequency: 3-4 Times per Week Seatbelt Use: always Sunscreen Use: No Assistive Devices: Cane, Glasses and Oxygen - Continuous Review of Systems Review of Systems: All systems reviewed & are unremarkable except as noted in HPI & below Physical Exam Physical Exam: General: patient resting comfortably, NAD, non-toxic in appearance, AA&O x 4 Skin: warm, dry, intact, no rashes or lesions HEENT: NC/AT, PERRL, EOMI, anicteric sclera, conjunctiva without injection, e xternal ear normal to inspection and nontender, nares patent, moist mucus membranes, dentition intact, no oropharyngeal lesions, neck supple, trachea midline, no LAD, no thyromegaly, no JVD Heart: +S1/S2, regular, no m/r/g Lungs: equal air entry bilaterally, no rales/rhonchi, diffuse wheezing throughout Abd: +BS, soft, NT/ND, no masses/organomegaly/ascites Ext: warm, 2+ pulses in UE/LE bilaterally, no clubbing/cyanosis or edema Neuro: nonfocal, patient AA&O x 4, speech intact, no facial droop, moving all extremities on command with equal strength 5/5 Results & Data Results & Data ([facility]) Vital Signs (Past 12 Hours) Vital Signs Temp Pulse Resp BP Pulse Ox 06/23/20 04:31 37.6 C H 06/23/20 04:01 97 H 25 H 127/71 97 06/23/20 03:30 122 H 27 H 105/41 L 95 06/23/20 03:00 116 H 29 H 109/77 95 06/23/20 02:45 120 H 24 95 06/23/20 02:39 37.9 C H 120 H 24 128/84 95 Laboratory Results Lab Results 06/23/20 06/23/20 06/23/20 Range/Units 02:48 02:48 02:55 WBC 7.36 (4.8-10.8) K/uL RBC 3.65 L (4.2-5.4) M/uL Hgb 10.5 L (12.0-16.0) g/dL Hct 32.2 L (37-47) % MCV 88.2 (80-100) fL MCH 28.8 (25-34) pg MCHC 32.6 (32-36) g/dL RDW Std Deviation 46.7 H (36.4-46.3) fL RDW Coeff of Aman 14.4 (11.5-14.5) % Plt Count 284 (130-400) K/uL MPV 10.8 H (7.4-10.4) fL Immature Gran % (Auto) 0.1 % Neut % (Auto) 88.0 % Lymph % (Auto) 7.9 % [place] % (Auto) 3.9 % Eos % (Auto) 0.0 % Baso % (Auto) 0.1 % Neut # (Auto) 6.47 (1.4-6.5) K/uL Lymph # (Auto) 0.58 L (1.2-3.4) K/uL [place] # (Auto) 0.29 (0.11-0.59) K/uL Eos # (Auto) 0.00 (0-0.5) K/uL Baso # (Auto) 0.01 (0-0.2) K/uL Immature Gran # (Auto) 0.01 (0.00-0.02) K/uL ESR (0-21) mm/hr PT (9.0-12.0) Seconds INR (0.9-1.1) APTT (21.0-31.0) Seconds PTT Ratio D-Dimer 3330 H* (0-500) ug/L FEU ABG pH (7.35-7.45) ABG pCO2 (35-46) mmHg ABG pO2 (80-95) mmHg ABG HCO3 (19-24) mmol/L ABG O2 Saturation (90-95) % ABG Base Excess (-9-1.8) mEq/L Smith Test (Pos) Oxygen Given Sodium (136-145) mmol/L Potassium (3.5-5.1) mmol/L Chloride (98-107) mmol/L Carbon Dioxide (21-32) mmol/L Anion Gap (3-11) BUN (7-18) mg/dl Creatinine (0.6-1.2) mg/dl Est Cr Clr Drug Dosing ml/min Est GFR ( Amer) Est GFR (Non-Af Amer) BUN/Creatinine Ratio (10-20) Glucose (70-99) mg/dl Lactate (0.4-2.0) mmol/L Calcium (8.5-10.1) mg/dl Magnesium (1.8-2.4) mg/dl Total Bilirubin (0.2-1) mg/dl AST (15-37) U/L ALT (12-78) U/L Alkaline Phosphatase (45-117) U/L Troponin I (0-0.045) ng/ml C-Reactive Protein (0-0.29) mg/dl NT-Pro-B Natriuret Pep (0-900) pg/ml Total Protein (6.4-8.2) gm/dl Albumin (3.4-5.0) gm/dl Globulin (2.5-4.0) gm/dl Albumin/Globulin Ratio (0.9-2) Procalcitonin < 0.05 (0-0.5) ng/ml 06/23/20 06/23/20 06/23/20 Range/Units 02:55 02:55 02:55 WBC (4.8-10.8) K/uL RBC (4.2-5.4) M/uL Hgb (12.0-16.0) g/dL Hct (37-47) % MCV (80-100) fL MCH (25-34) pg MCHC (32-36) g/dL RDW Std Deviation (36.4-46.3) fL RDW Coeff of Aman (11.5-14.5) % Plt Count (130-400) K/uL MPV (7.4-10.4) fL Immature Gran % (Auto) % Neut % (Auto) % Lymph % (Auto) % [place] % (Auto) % Eos % (Auto) % Baso % (Auto) % Neut # (Auto) (1.4-6.5) K/uL Lymph # (Auto) (1.2-3.4) K/uL [place] # (Auto) (0.11-0.59) K/uL Eos # (Auto) (0-0.5) K/uL Baso # (Auto) (0-0.2) K/uL Immature Gran # (Auto) (0.00-0.02) K/uL ESR 75 H (0-21) mm/hr PT 12.4 H (9.0-12.0) Seconds INR 1.2 H (0.9-1.1) APTT 36.7 H (21.0-31.0) Seconds PTT Ratio 1.3 D-Dimer (0-500) ug/L FEU ABG pH (7.35-7.45) ABG pCO2 (35-46) mmHg ABG pO2 (80-95) mmHg ABG HCO3 (19-24) mmol/L ABG O2 Saturation (90-95) % ABG Base Excess (-9-1.8) mEq/L Smith Test (Pos) Oxygen Given Sodium 134 L (136-145) mmol/L Potassium 3.9 (3.5-5.1) mmol/L Chloride 104 (98-107) mmol/L Carbon Dioxide 26 (21-32) mmol/L Anion Gap 4.0 (3-11) BUN 28 H (7-18) mg/dl Creatinine 1.50 H (0.6-1.2) mg/dl Est Cr Clr Drug Dosing 36.6 ml/min Est GFR ( Amer) 39.4 Est GFR (Non-Af Amer) 34.0 BUN/Creatinine Ratio 18.5 (10-20) Glucose 222 H (70-99) mg/dl Lactate (0.4-2.0) mmol/L Calcium 8.6 (8.5-10.1) mg/dl Magnesium 1.7 L (1.8-2.4) mg/dl Total Bilirubin 1.0 (0.2-1) mg/dl AST 25 (15-37) U/L ALT 16 (12-78) U/L Alkaline Phosphatase 64 (45-117) U/L Troponin I 0.108 H* (0-0.045) ng/ml C-Reactive Protein 14.10 H (0-0.29) mg/dl NT-Pro-B Natriuret Pep 86847 H (0-900) pg/ml Total Protein 7.6 (6.4-8.2) gm/dl Albumin 2.8 L (3.4-5.0) gm/dl Globulin 4.8 H (2.5-4.0) gm/dl Albumin/Globulin Ratio 0.6 L (0.9-2) Procalcitonin (0-0.5) ng/ml 06/23/20 06/23/20 Range/Units 03:16 03:16 WBC (4.8-10.8) K/uL RBC (4.2-5.4) M/uL Hgb (12.0-16.0) g/dL Hct (37-47) % MCV (80-100) fL MCH (25-34) pg MCHC (32-36) g/dL RDW Std Deviation (36.4-46.3) fL RDW Coeff of Aman (11.5-14.5) % Plt Count (130-400) K/uL MPV (7.4-10.4) fL Immature Gran % (Auto) % Neut % (Auto) % Lymph % (Auto) % [place] % (Auto) % Eos % (Auto) % Baso % (Auto) % Neut # (Auto) (1.4-6.5) K/uL Lymph # (Auto) (1.2-3.4) K/uL [place] # (Auto) (0.11-0.59) K/uL Eos # (Auto) (0-0.5) K/uL Baso # (Auto) (0-0.2) K/uL Immature Gran # (Auto) (0.00-0.02) K/uL ESR (0-21) mm/hr PT (9.0-12.0) Seconds INR (0.9-1.1) APTT (21.0-31.0) Seconds PTT Ratio D-Dimer (0-500) ug/L FEU ABG pH 7.41 (7.35-7.45) ABG pCO2 35 (35-46) mmHg ABG pO2 95 (80-95) mmHg ABG HCO3 22 (19-24) mmol/L ABG O2 Saturation 97.1 H (90-95) % ABG Base Excess -2.6 (-9-1.8) mEq/L Smith Test Pos (Pos) Oxygen Given 4L Sodium (136-145) mmol/L Potassium (3.5-5.1) mmol/L Chloride (98-107) mmol/L Carbon Dioxide (21-32) mmol/L Anion Gap (3-11) BUN (7-18) mg/dl Creatinine (0.6-1.2) mg/dl Est Cr Clr Drug Dosing ml/min Est GFR ( Amer) Est GFR (Non-Af Amer) BUN/Creatinine Ratio (10-20) Glucose (70-99) mg/dl Lactate 1.0 (0.4-2.0) mmol/L Calcium (8.5-10.1) mg/dl Magnesium (1.8-2.4) mg/dl Total Bilirubin (0.2-1) mg/dl AST (15-37) U/L ALT (12-78) U/L Alkaline Phosphatase (45-117) U/L Troponin I (0-0.045) ng/ml C-Reactive Protein (0-0.29) mg/dl NT-Pro-B Natriuret Pep (0-900) pg/ml Total Protein (6.4-8.2) gm/dl Albumin (3.4-5.0) gm/dl Globulin (2.5-4.0) gm/dl Albumin/Globulin Ratio (0.9-2) Procalcitonin (0-0.5) ng/ml Diagnostic Findings CXR with cardiomegaly, bilateral airspace opacities - R > L ECG Additional Comments: AF wtih RVR at 120 bpm NSR with known LBBB Code Status & VTE Plan VTE Prophylaxis Plan VTE Prophylaxis will be ordered: Yes PG Care Time/CCT Total # of Minutes Spent Total Time Spent with Patient: Total time spent is greater than 50% in coordination of care (as documented) at patient's floor/unit and/or counseling patient: Coding Level of Care Code 09698 Initial Inpt Care Lvl 3 Diagnoses COVID-19 U07.1 Elevated troponin R77.8 Atrial fibrillation with rapid ventricular response I48.91 Asthma J45.909 Asthma severity: unspecified severity Asthma persistence: unspecified Asthma complication type: unspecified GERD (gastroesophageal reflux disease) K21.9 Esophagitis presence: esophagitis presence not specified Glaucoma H40.9 Glaucoma type: unspecified Type 2 diabetes mellitus E11.22; N18.3 Diabetes mellitus care home insulin use: without terminal block assembler use Diabetes mellitus complication status: with kidney complications Diabetes mellitus complication detail: with chronic kidney disease Chronic kidney disease stage: stage 3 (moderate) CKD (chronic kidney disease), stage III N18.3 Dyslipidemia E78.5 CAD (coronary artery disease) I25.10 Coronary Disease-Associated Artery/Lesion type: unspecified vessel or lesion type [place] vs. transplanted heart: [place] heart Associated angina: without angina Hypertension I10 Hypertension type: essential hypertension Mild vitamin D deficiency E55.9 Left bundle branch block I44.7 (1) Asthma Asthma severity: unspecified severity Asthma persistence: unspecified Asthma complication type: unspecified Qualified Code(s): J45.909 - Unspecified asthma, uncomplicated (2) GERD (gastroesophageal reflux disease) Esophagitis presence: esophagitis presence not specified Qualified Code(s): K21.9 - Gastro-esophageal reflux disease without esophagitis (3) Glaucoma Glaucoma type: unspecified (4) Type 2 diabetes mellitus 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 transplanted heart: [place] heart Associated angina: without angina Qualified Code(s): I25.10 - Atherosclerotic heart disease of [place] coronary artery without angina pectoris (6) Hypertension Hypertension type: essential hypertension Qualified Code(s): I10 - Essential (primary) hypertension
[2020-06-23] MEDS ORDERED: GLUCOSE 40% GEL 15 GM TUBE PO PRN (05:40)
[2020-06-23] MEDS ORDERED: ONDANSETRON INJ 2 MG/ML 2 ML VIAL IV PRN (05:40)
[2020-06-23] MEDS ORDERED: GLUCOSE 10 TABS/TUBE PO PRN (05:40)
[2020-06-23] MEDS ORDERED: ACETAMINOPHEN 325 MG TAB PO PRN (05:40)
[2020-06-23] MEDS ORDERED: DEXTROSE 50% 50 ML SYRINGE IV PRN (05:40)
[2020-06-23] MEDS ORDERED: GLUCAGON FOR INJ 1 MG VIAL SQ PRN (05:40)
[2020-06-23] MEDS ORDERED: CARBOHYDRATES FOR HYPOGLYCEMIA PO PRN (05:40)
[2020-06-23] MEDS ORDERED: ENOXAPARIN 100 MG/1ML SYR SC SCH (06:00)
[2020-06-23] MEDS: MAGNESIUM SULFATE / D5W 1 GM/100 ML BAG IV SCH ×3 (06:14→11:25)
[2020-06-23 07:16] LABS: Magnesium 1.6 mg/dl (1.8-2.4); Phosphorus 3.2 mg/dl (2.5-4.9)
[2020-06-23] MEDS: ALBUTEROL HFA 8 GM INHALER INH SCH ×5 (08:23→23:09)
--- NOTE | 2020-06-23 08:28 | XRay Report ---
XR chest 1V portable HISTORY: COVID, Hypoxia COMPARISON: Chest 09/28/2018. FINDINGS: Diffuse bilateral patchy airspace opacities, right greater than left. This is consistent wi th a viral pneumonia. The heart is mildly enlarged. No pneumothorax. No pleural effusions. IMPRESSION: Diffuse bilateral airspace opacities consistent with a viral pneumonia. ACT 112: Negative or not required by law. Electronically signed by: Iain Wiggins M.D. 06/23/2020 8:27 AM
[2020-06-23] MEDS: ASPIRIN 81 MG ECTAB PO SCH (08:52)
[2020-06-23] MEDS: DORZOLAMIDE HCL 2% OPH SOLN 10 ML BTL OP SCH ×2 (08:52→21:04)
[2020-06-23] MEDS: amLODIPine BESYLATE 5 MG TAB PO SCH (08:52)
[2020-06-23] MEDS: INSULIN ASPART 100 UNITS/ML 3 ML PEN SC SCH ×4 (08:53→21:06)
[2020-06-23] MEDS: ATORVASTATIN 20 MG TAB PO SCH (08:54)
[2020-06-23] MEDS: METOPROLOL TARTRATE 50 MG TAB PO SCH ×2 (08:54→21:03)
[2020-06-23] MEDS: OLMESARTAN MEDOXOMIL 20 MG TAB PO SCH (08:54)
[2020-06-23] MEDS: CHOLECALCIFEROL 1,000 UNITS 25 MCG TAB PO SCH (08:54)
[2020-06-23] MEDS: FLUTICASONE/VILANTEROL 200/25MCG 14 PUFFS/INHALER INH SCH (08:54)
[2020-06-23] MEDS: PANTOprazole 40 MG TAB PO SCH (08:54)
[2020-06-23] MEDS ORDERED: DEXAMETHASONE SOD INJ 10 MG/ML VIAL IV SCH (09:00)
[2020-06-23] MEDS ORDERED: INSULIN GLARGINE SOLOSTAR 100 UNITS/ML 3 ML PEN SC SCH (09:00)
[2020-06-23] MEDS ORDERED: PHARMACY GLYCEMIC MGMT CONSULT PRN (09:07)
[2020-06-23] MEDS ORDERED: INSULIN GLARGINE SOLOSTAR 100 UNITS/ML 3 ML PEN SC ONE (09:15)
[2020-06-23] MEDS ORDERED: INSULIN ASPART 100 UNITS/ML 3 ML PEN SC ONE (09:15)
--- NOTE | 2020-06-23 12:56 | Hospitalist Progress Note ---
Date of Service June 23, 2020 Assessment & Plan (1) COVID-19: Patient with Covid-19 infection diagnosed on 06/15/20. Hypoxic on arrival at 82% on RA. Afebrile. Late in illness - would not likely benefit from treatment with Remdesivir or plasma at this time Age, comorbid conditions place her at risk for severe disease. Elevated CRP of 14.1, normal procalcitonin. Elevated BNP. -Admit to medical with telemetry -Maintain isolation precautions -Dexamethasone 6mg IV daily -Elevated Ddimer most likely in setting of Covid infection. Will not obtain CTA chest at this time -Supplemental O2 as needed to maintain oxygenation >94% (2) Elevated troponin: Patient denies CP. ?Demand ischemia in setting of atrial fibrillation -trend troponin (3) Atrial fibrillation with rapid ventricular response: New on arrival to ER s/p return to NSR after IV Metoprolol -Lovenox full dose 1mg/kg BID - hypercoag state with Covid -Telemetry monitoring (4) Asthma: Chronic -COntinue Fluticasone/VIlanterol -Albuterol PRN (5) GERD (gastroesophageal reflux disease): Chronic. -Protonix 40mg po daily (6) Glaucoma: Chronic -Continue Dorzolamide (7) Type 2 diabetes mellitus: Chronic -Hold home medications -Lantus 12u BID -ISS -Goal blood sugar 100-140 (8) CKD (chronic kidney disease), stage III: Avoid nephrotoxic agents -Monitor renal function and electrolytes (9) Dyslipidemia: Chronic -Continue Atorvastatin (10) CAD (coronary artery disease): Chronic. -Continue ASA, Atorvastatin, Metoprolol, Olmesartan (11) Hypertension: Blood pressure stable -Continue Amlodipine -Continue Olmesartan -Continue Metoprolol (12) Mild vitamin D deficiency: Chronic -Continue Vitamin D supplementation (13) Left bundle branch block: Chronic. Noted F/E/N -Diuresis. Monitor electolytes, Mg repletion. CC/Heart healthy diet as tolerated Ppx - Full dose Lovenox in setting of AF Code - Full Dispo - Admit to medical / tele Admission and Anticipated Discharge Date Admission Date: June 23, 2020 Results & Data Results & [facility] ([facility]) Vital Signs (Past 12 Hours) Vital Signs Temp Pulse Pulse Pulse Resp BP BP 06/23/20 12:05 61 20 06/23/20 11:24 36.5 C 60 20 124/55 L 06/23/20 08:25 60 20 06/23/20 07:15 36.7 C 59 L 20 133/56 L 06/23/20 05:44 36.8 C 62 20 111/76 06/23/20 05:00 63 24 128/60 06/23/20 04:36 64 19 135/56 L 06/23/20 04:31 37.6 C H 06/23/20 04:30 65 28 H 111/79 06/23/20 04:01 97 H 25 H 127/71 06/23/20 03:30 122 H 27 H 105/41 L 06/23/20 03:00 116 H 29 H 109/77 06/23/20 02:45 120 H 24 06/23/20 02:39 37.9 C H 120 H 24 128/84 Pulse Ox 06/23/20 12:05 100 06/23/20 11:24 98 06/23/20 08:25 98 06/23/20 07:15 100 06/23/20 05:44 96 06/23/20 05:00 95 06/23/20 04:36 98 06/23/20 04:31 06/23/20 04:30 94 06/23/20 04:01 97 06/23/20 03:30 95 06/23/20 03:00 95 06/23/20 02:45 95 06/23/20 02:39 95 PG Care Time/CCT Total # of Minutes Spent Total Time Spent with Patient: Total time spent is greater than 50% in coordination of care (as documented) at patient's floor/unit and/or counseling patient: Coding Diagnoses COVID-19 U07.1 Elevated troponin R77.8 Atrial fibrillation with rapid ventricular response I48.91 Asthma J45.909 Asthma severity: unspecified severity Asthma persistence: unspecified Asthma complication type: unspecified GERD (gastroesophageal reflux disease) K21.9 Esophagitis presence: esophagitis presence not specified Glaucoma H40.9 Glaucoma type: unspecified Type 2 diabetes mellitus E11.22; N18.3 Diabetes mellitus ferry terminal supervisor insulin use: without shelter use Diabetes mellitus complication status: with kidney complications Diabetes mellitus complication detail: with chronic kidney disease Chronic kidney disease stage: stage 3 (moderate) CKD (chronic kidney disease), stage III N18.3 Dyslipidemia E78.5 CAD (coronary artery disease) I25.10 Coronary Disease-Associated Artery/Lesion type: unspecified vessel or lesion type [place] vs. transplanted heart: [place] heart Associated angina: without angina Hypertension I10 Hypertension type: essential hypertension Mild vitamin D deficiency E55.9 Left bundle branch block I44.7 (1) Asthma Asthma severity: unspecified severity Asthma persistence: unspecified Asthma complication type: unspecified Qualified Code(s): J45.909 - Unspecified asthma, uncomplicated (2) GERD (gastroesophageal reflux disease) Esophagitis presence: esophagitis presence not specified Qualified Code(s): K21.9 - Gastro-esophageal reflux disease without esophagitis (3) Glaucoma Glaucoma type: unspecified (4) Type 2 diabetes mellitus Diabetes mellitus shelter insulin use: without shelter use Diabetes mellitus complication status: with kidney complications Diabetes mellitus complication detail: with chronic kidney disease Chronic kidney disease stage: stage 3 (moderate) Qualified Code(s): E11.22 - Type 2 diabetes mellitus with diabetic chronic kidney disease; N18.3 - Chronic kidney disease, stage 3 (moderate) (5) CAD (coronary artery disease) Coronary Disease-Associated Artery/Lesion type: unspecified vessel or lesion type [place] vs. transplanted heart: [place] heart Associated angina: without angina Qualified Code(s): I25.10 - Atherosclerotic heart disease of [place] coronary artery without angina pectoris (6) Hypertension Hypertension type: essential hypertension Qualified Code(s): I10 - Essential (primary) hypertension
--- NOTE | 2020-06-23 13:20 | Communication Note ---
Date of Service: June 23, 2020 Patient seen and examined at bedside. Patient reports feeling better. Patient has no new complaints at this time Discussed with patient benefits of lying prone.
--- NOTE | 2020-06-23 14:27 | Pharmacy Report ---
Glycemic Control Consultation - Date of Service June 23, 2020 - Scope Scope: Glycemic Pharmacist consulted for glycemic control and to write orders per [facility] inpatient glycemic control protocol. - Objective Weight: 99.2 kg Accuchecks BSG (last 24hrs): 06/23/20 06/23/20 06/23/20 02:55 08:19 11:33 Glucose 222 H POC Glucose 252 H 303 H* Laboratory Data (last 24hrs): 06/23/20 02:55 Potassium 3.9 Carbon Dioxide 26 Anion Gap 4.0 Creatinine 1.50 H Est Cr Clr Drug Dosing 36.6 - Recent Pertinent Medications Outpatient Anti-diabetic Regimen: * metformin ER 1 gm PO qAM * Janumet 1 tablet daily * A1c = 6.2 % 07/11/19 The patient is currently receiving: * Basal insulin: Lantus 12 units every 12 hours * Correctional Insulin: Novolog Correction per scale ACHS Goal Range: Low 110 mg/dL - High 140 mg/dL Correction Factor: 20 mg/dL/unit * Prandial insulin: Per carb ratio of 1 unit per 8 grams CHO consumed Risk Factors for Insulin Resistance: * Steroids: dexamethasone 6 mg IV daily * Infection: COVID * Diet: T2DM - Assessment & Plan Assessment & Plan: ASSESSMENT: * Ms Sousa is a 75 y/o F with a PMH of T2DM (unknown control) who presents with COVID-19 infection. Patient given dexamethasone 6 mg IV in the ED and ongoing dexamethasone 6 mg IV daily is started for tomorrow. * Patient's admission BSG was 222 mg/dL. She is on two orals at home. * Pharmacy consulted after breakfast accucheck of 252 mg/dL. * Started with Lantus 42 units (custodial between full weight-based stress of 2 and 3) plus weight-based stress of 3 Novolog. Morning insulin had already been given so gave additional Lantus and Novolog. For Lantus tomorrow, scale of weight-based doses. * Chose Lantus 42 units because suspect patient's true basal needs are probably around 30 units/day (weight-based stress of 2) ... then added some Lantus to overcome steroid hyperglycemia. * Hold oral medications. PLAN FOR INPATIENT GLYCEMIC CONTROL: * Holding outpatient oral diabetes medications * Basal insulin * Lantus 42 units SQ x 1 then Lantus 30-50 units daily (30 units if BSG < 120 mg/dL; 40 units if BSG 120-160 mg/dL; 50 units if BSG greater than 160 mg/dL) * Bolus insulin * NovoLog per scale ACHS or Q6hrs while NPO * Goal Range: Low 110 mg/dL - High 140 mg/dL * Correction Factor: 15 mg/dL/unit * Nutritional / Prandial insulin per carb ratio of 1 unit per 5 grams CHO consumed * Please note that the plan above was derived based on current level of insulin resistance and hospital stress. These recommendations are appropriate for inpatient admission only. Plan of care upon discharge will need to be reassessed to avoid potential outpatient hypo/hyperglycemia. Thank you.
[2020-06-23] MEDS: ENOXAPARIN 100 MG/1ML SYR SC SCH (21:03)
[2020-06-24] MEDS: INSULIN ASPART 100 UNITS/ML 3 ML PEN SC SCH ×6 (00:15→20:53)
[2020-06-24] MEDS: ALBUTEROL HFA 8 GM INHALER INH SCH ×6 (03:14→23:06)
--- NOTE | 2020-06-24 06:06 | Electrocardiogram Report ---
Test Reason : Blood Pressure : / mmHG Vent. Rate : 120 BPM Atrial Rate : 094 BPM P-R Int : 000 ms QRS Dur : 154 ms QT Int : 388 ms P-R-T Axes : 000 -37 137 degrees QTc Int : 548 ms Atrial fibrillation with rapid ventricular response with premature ventricular or aberrantly conducte d complexes Left axis deviation Left bundle branch block Abnormal ECG When compared with ECG of 08-APR-2017 06:55, Atrial fibrillation has replaced Sinus rhythm Confirmed by Tylor Chakraborty ([id number]) on 06/24/2020 6:05:43 AM Referred By: REFERRED SELF Confirmed By:Tylor Chakraborty
--- NOTE | 2020-06-24 06:06 | Electrocardiogram Report ---
Test Reason : Blood Pressure : / mmHG Vent. Rate : 066 BPM Atrial Rate : 066 BPM P-R Int : 158 ms QRS Dur : 152 ms QT Int : 454 ms P-R-T Axes : 061 -30 149 degrees QTc Int : 475 ms Sinus rhythm with Premature atrial complexes Left axis deviation Left bundle branch block Abnormal ECG When compared with ECG of 23-JUN-2020 02:45, Sinus rhythm has replaced Atrial fibrillation Vent. rate has decreased BY 54 BPM Confirmed by Tylor Chakraborty ([id number]) on 06/24/2020 6:06:49 AM Referred By: REFERRED SELF Confirmed By:Tylor Chakraborty
[2020-06-24 06:36] LABS: Hematocrit (blood only) 28.8 % (37-47); Hemoglobin 9.4 g/dL (12.0-16.0); Mean Corpuscular Hemoglobin 28.7 pg (25-34); Mean Corpuscular Hgb Conc 32.6 g/dL (32-36); Mean Corpuscular Volume 88.1 fL (80-100); Mean Platelet Volume 10.5 fL (7.4-10.4); Platelet Count 278 K/uL (130-400); RDW Coefficient of Variation 14.4 % (11.5-14.5); Red Blood Count 3.27 M/uL (4.2-5.4); White Blood Count 8.26 K/uL (4.8-10.8)
[2020-06-24 07:23] LABS: BUN Creatinine Ratio 24.6 (10-20); Calcium 9.8 mg/dl (8.5-10.1); Creatinine Clr Calc Pharmacy 45.9 ml/min; Est GFR (Non-African American) 43.2; Potassium 4.2 mmol/L (3.5-5.1)
[2020-06-24] MEDS: FLUTICASONE/VILANTEROL 200/25MCG 14 PUFFS/INHALER INH SCH (08:39)
[2020-06-24] MEDS: DEXAMETHASONE SOD PHOSPHATE 6 MG in SYRINGE 0 ML IV SCH (08:39)
[2020-06-24] MEDS: ATORVASTATIN 20 MG TAB PO SCH (08:40)
[2020-06-24] MEDS: amLODIPine BESYLATE 5 MG TAB PO SCH (08:40)
[2020-06-24] MEDS: ASPIRIN 81 MG ECTAB PO SCH (08:40)
[2020-06-24] MEDS: OLMESARTAN MEDOXOMIL 20 MG TAB PO SCH (08:40)
[2020-06-24] MEDS: PANTOprazole 40 MG TAB PO SCH (08:40)
[2020-06-24] MEDS: CHOLECALCIFEROL 1,000 UNITS 25 MCG TAB PO SCH (08:40)
[2020-06-24] MEDS: ENOXAPARIN 100 MG/1ML SYR SC SCH ×2 (08:40→20:53)
[2020-06-24] MEDS: METOPROLOL TARTRATE 50 MG TAB PO SCH ×2 (08:41→20:53)
[2020-06-24] MEDS: DORZOLAMIDE HCL 2% OPH SOLN 10 ML BTL OP SCH ×2 (08:41→20:54)
[2020-06-24] MEDS ORDERED: INSULIN HUMAN NPH SC SCH (09:00)
[2020-06-24] MEDS: INSULIN GLARGINE SOLOSTAR 100 UNITS/ML 3 ML PEN SC SCH (09:08)
--- NOTE | 2020-06-24 10:38 | Pharmacy Report ---
Pharmacy Glycemic Short Note 2 - Date of Service June 24, 2020 - Glycemic Short BSG Results (Last 24 hours): 06/23/20 06/23/20 06/23/20 11:33 16:17 20:28 Glucose POC Glucose 303 H* 177 H 206 H 06/24/20 06/24/20 06/24/20 00:13 04:33 05:43 Glucose 129 H POC Glucose 145 H 136 H 06/24/20 07:10 Glucose POC Glucose 136 H OUTPATIENT ANTIDIABETIC REGIMEN: * metformin ER 1gm PO qam * Janumet 1 tabdaily * A1c = 6.2 % 07/11/19 ASSESSMENT: 06/24: * BSGs much better controlled overnight and this morning with a fasting BSG of 136 mg/dL. Continue current lantus scale. * Patient continues on IV dexamethasone. Continue NPH to cover steroid effects. Continue current novolog scale, will monitor closely and adjust if insulin needs change. 06/23 * * Ms Sousa is a 75 y/o F with a PMH of T2DM (unknown control) who presents with COVID-19 infection. Patient given dexamethasone 6 mg IV in the ED and ongoing dexamethasone 6 mg IV daily is started for tomorrow. * Patient's admission BSG was 222 mg/dL. She is on two orals at home. * Pharmacy consulted after breakfast accucheck of 252 mg/dL. * Started with Lantus 42 units (correction between full weight-based stress of 2 and 3) plus weight-based stress of 3 Novolog. Morning insulin had already been given so gave additional Lantus and Novolog. For Lantus tomorrow, scale of weight-based doses. * Chose Lantus 42 units because suspect patient's true basal needs are probably around 30 units/day (weight-based stress of 2) ... then added some Lantus to overcome steroid hyperglycemia. * Hold oral medications. PLAN FOR INPATIENT GLYCEMIC CONTROL: * Hold outpatient oral diabetes medications * Basal insulin * Lantus 30-50 units daily (30 units if BSG < 120 mg/dL; 40 units if BSG 120- 160 mg/dL; 50 units if BSG greater than 160 mg/dL) * NPH 40 units QD with dexamethsone * Bolus insulin * NovoLog per scale ACHS or Q6hrs while NPO * Goal Range: Low 110 mg/dL - High 140 mg/dL * Correction Factor: 15 mg/dL/unit * Nutritional / Prandial insulin per carb ratio of 1 unit per 5 grams CHO consumed
[2020-06-24 11:42] LABS: Appearance Urine Cloudy (Clear); Bacteria Urine Automated Negative (Negative); Bilirubin Urine Negative (Negative); Blood Urine Negative (Negative); Color Urine Dark Yellow; Epithelial Cell Urine Auto >30 /lpf (0-5); Glucose Urine UA Negative (Negative); Ketones Urine Negative (Negative); Leukocyte Esterase Urine 1+ (Negative); Nitrite Urine Negative (Negative); Protein Urine 2+ (Negative); RBC Urine Automated 0-4 /hpf (0-4); Specific Gravity Urine 1.026 (1.000-1.030); Urobilinogen Urine Negative (Negative); pH Urine 5.5 (4.5-7.5)
[2020-06-24 12:03] LABS: Cast Urine Automated >30 /lpf (0-5)
[2020-06-24 12:08] LABS: Amorphous Sediment Urine Present (None Prsent); Renal Epithelial Cells Urine 0-5 /lpf (0-5)
--- NOTE | 2020-06-24 20:21 | Hospitalist Progress Note ---
Date of Service June 24, 2020 Assessment & Plan (1) COVID-19: Patient with Covid-19 infection diagnosed on 06/15/20. Hypoxic on arrival at 82% on RA. Afebrile. Late in illness - would not likely benefit from treatment with Remdesivir or plasma at this time Age, comorbid conditions place her at risk for severe disease. Elevated CRP of 14.1, normal procalcitonin. Elevated BNP. -Maintain isolation precautions -Continue Dexamethasone 6mg IV daily -Elevated Ddimer most likely in setting of Covid infection. Will not obtain CTA chest at this time -will monitor on room air. If she continues to improve, possibility of discharge tomorrow. (2) Elevated troponin: Patient denies CP. ?Demand ischemia in setting of atrial fibrillation -trend troponin (3) Atrial fibrillation with rapid ventricular response: New on arrival to ER s/p return to NSR after IV Metoprolol -Lovenox full dose 1mg/kg BID - hypercoag state with Covid -Telemetry monitoring (4) Asthma: Chronic -COntinue Fluticasone/VIlanterol -Albuterol PRN (5) GERD (gastroesophageal reflux disease): Chronic. -Protonix 40mg po daily (6) Glaucoma: Chronic -Continue Dorzolamide (7) Type 2 diabetes mellitus: Chronic -Hold home medications -Lantus 12u BID -ISS -Goal blood sugar 100-140 (8) CKD (chronic kidney disease), stage III: Avoid nephrotoxic agents -Monitor renal function and electrolytes (9) Dyslipidemia: Chronic -Continue Atorvastatin (10) CAD (coronary artery disease): Chronic. -Continue ASA, Atorvastatin, Metoprolol, Olmesartan (11) Hypertension: Blood pressure stable -Continue Amlodipine -Continue Olmesartan -Continue Metoprolol (12) Mild vitamin D deficiency: Chronic -Continue Vitamin D supplementation (13) Left bundle branch block: Chronic. Noted F/E/N -Diuresis. Monitor electolytes, Mg repletion. CC/Heart healthy diet as tolerated Ppx - Full dose Lovenox in setting of AF Code - Full Admission and Anticipated Discharge Date Admission Date: June 23, 2020 Subjective Patient reports feeling better. She is not back to baseline but she feels better today. She continues to cough. Review of Systems Review of Systems: All systems reviewed & are unremarkable except as noted in HPI & below Physical Exam Physical Exam: General: patient resting comfortably, NAD, non-toxic in appearance, AA&O x 4 Skin: warm, dry, intact, no rashes or lesions HEENT: NC/AT, PERRL, EOMI, anicteric sclera, conjunctiva without injection, external ear normal to inspection and nontender, nares patent, moist mucus membranes, dentition intact, no oropharyngeal lesions, neck supple, trachea midline, no LAD, no thyromegaly, no JVD Heart: +S1/S2, regular, no m/r/g Lungs: equal air entry bilaterally, no rales/rhonchi, diffuse wheezing throughout Abd: +BS, soft, NT/ND, no masses/organomegaly/ascites Ext: warm, 2+ pulses in UE/LE bilaterally, no clubbing/cyanosis or edema Neuro: nonfocal, patient AA&O x 4, speech intact, no facial droop, moving all extremities on command with equal strength 5/5 Results & Data Results & Data ([facility]) Vital Signs (Past 12 Hours) Vital Signs Temp Pulse Resp BP Pulse Ox 06/24/20 19:14 36.7 C 55 L 18 121/67 97 06/24/20 19:12 54 L 16 96 06/24/20 15:31 57 L 18 99 06/24/20 15:14 36.6 C 56 L 19 122/47 L 99 06/24/20 11:39 36.9 C 54 L 16 122/58 L 98 06/24/20 11:14 55 L 16 96 06/24/20 08:55 62 137/66 PG Care Time/CCT Total # of Minutes Spent Total Time Spent with Patient: Total time spent is greater than 50% in coordination of care (as documented) at patient's floor/unit and/or counseling patient: Coding Level of Care Code 85739 Subseq Hosp Care Lvl 2 Diagnoses COVID-19 U07.1 Elevated troponin R77.8 Atrial fibrillation with rapid ventricular response I48.91 Asthma J45.909 Asthma complication type: unspecified Asthma persistence: unspecified Asthma severity: unspecified severity GERD (gastroesophageal reflux disease) K21.9 Esophagitis presence: esophagitis presence not specified Glaucoma H40.9 Glaucoma type: unspecified Type 2 diabetes mellitus E11.22; N18.3 Chronic kidney disease stage: stage 3 (moderate) Diabetes mellitus complication detail: with chronic kidney disease Diabetes mellitus complication status: with kidney complications Diabetes mellitus long-term insulin use: without long-term use CKD (chronic kidney disease), stage III N18.3 Dyslipidemia E78.5 CAD (coronary artery disease) I25.10 Associated angina: without angina Coronary Disease-Associated Artery/Lesion type: unspecified vessel or lesion type [place] vs. transplanted heart: [place] heart Hypertension I10 Hypertension type: essential hypertension Mild vitamin D deficiency E55.9 Left bundle branch block I44.7 Time Spent (min) 25 (1) Type 2 diabetes mellitus Chronic kidney disease stage: stage 3 (moderate) Diabetes mellitus complication detail: with chronic kidney disease Diabetes mellitus complication status: with kidney complications Diabetes mellitus [employer] terminal [employer] insulin use: without long-term use Qualified Code(s): E11.22 - Type 2 diabetes mellitus with diabetic chronic kidney disease; N18.3 - Chronic kidney disease, stage 3 (moderate) (2) CAD (coronary artery disease) Associated angina: without angina Coronary Disease-Associated Artery/Lesion type: unspecified vessel or lesion type [place] vs. transplanted heart: [place] heart Qualified Code(s): I25.10 - Atherosclerotic heart disease of [place] coronary artery without angina pectoris (3) GERD (gastroesophageal reflux disease) Esophagitis presence: esophagitis presence not specified Qualified Code(s): K21.9 - Gastro-esophageal reflux disease without esophagitis (4) Glaucoma Glaucoma type: unspecified (5) Hypertension Hypertension type: essential hypertension Qualified Code(s): I10 - Essential (primary) hypertension (6) Asthma Asthma complication type: unspecified Asthma persistence: unspecified Asthma severity: unspecified severity Qualified Code(s): J45.909 - Unspecified asthma, uncomplicated
[2020-06-25] MEDS: ALBUTEROL HFA 8 GM INHALER INH SCH ×2 (03:19→07:31)
[2020-06-25 07:01] LABS: Hematocrit (blood only) 29.5 % (37-47); Hemoglobin 9.2 g/dL (12.0-16.0); Mean Corpuscular Hemoglobin 27.9 pg (25-34); Mean Corpuscular Hgb Conc 31.2 g/dL (32-36); Mean Corpuscular Volume 89.4 fL (80-100); Mean Platelet Volume 10.4 fL (7.4-10.4); Platelet Count 323 K/uL (130-400); RDW Coefficient of Variation 14.6 % (11.5-14.5); White Blood Count 10.68 K/uL (4.8-10.8)
[2020-06-25 07:33] LABS: BUN Creatinine Ratio 25.2 (10-20); Calcium 9.1 mg/dl (8.5-10.1); Creatinine Clr Calc Pharmacy 44.1 ml/min; Est GFR (African American) 47.7; Est GFR (Non-African American) 41.1; Potassium 3.8 mmol/L (3.5-5.1)
[2020-06-25] MEDS: FLUTICASONE/VILANTEROL 200/25MCG 14 PUFFS/INHALER INH SCH (08:32)
[2020-06-25] MEDS: DORZOLAMIDE HCL 2% OPH SOLN 10 ML BTL OP SCH (08:32)
[2020-06-25] MEDS: ATORVASTATIN 20 MG TAB PO SCH (08:33)
[2020-06-25] MEDS: PANTOprazole 40 MG TAB PO SCH (08:33)
[2020-06-25] MEDS: ENOXAPARIN 100 MG/1ML SYR SC SCH (08:33)
[2020-06-25] MEDS: DEXAMETHASONE SOD PHOSPHATE 6 MG in SYRINGE 0 ML IV SCH (08:33)
[2020-06-25] MEDS: CHOLECALCIFEROL 1,000 UNITS 25 MCG TAB PO SCH (08:33)
[2020-06-25] MEDS: ASPIRIN 81 MG ECTAB PO SCH (08:33)
[2020-06-25] MEDS: OLMESARTAN MEDOXOMIL 20 MG TAB PO SCH (08:34)
[2020-06-25] MEDS: amLODIPine BESYLATE 5 MG TAB PO SCH (08:34)
[2020-06-25] MEDS: METOPROLOL TARTRATE 50 MG TAB PO SCH (08:34)
[2020-06-25] MEDS ORDERED: INSULIN HUMAN NPH SC SCH (09:00)
[2020-06-25] MEDS: INSULIN GLARGINE SOLOSTAR 100 UNITS/ML 3 ML PEN SC SCH (09:02)
[2020-06-25] MEDS: INSULIN ASPART 100 UNITS/ML 3 ML PEN SC SCH ×2 (09:02→13:04)
[2020-06-25] MEDS ORDERED: ALBUTEROL HFA 8 GM INHALER INH PRN (09:07)
--- NOTE | 2020-06-25 14:56 | Pharmacy Report ---
Pharmacy Glycemic Short Note 2 - Date of Service June 25, 2020 - Glycemic Short BSG Results (Last 24 hours): 06/24/20 06/24/20 06/25/20 16:30 20:33 05:49 Glucose 81 POC Glucose 146 H 113 H 06/25/20 06/25/20 07:59 11:41 Glucose POC Glucose 84 102 H OUTPATIENT ANTIDIABETIC REGIMEN: * metformin ER 1gm PO qam * Janumet 1 tabdaily * A1c = 6.2 % 07/11/19 ASSESSMENT: 06/25: * Patients fasting BSG significantly downtrended this morning after initial stress response. Lantus significantly decreased this morning. NPH also decreased somewhat, but still want to cover steroid effects of the d examethasone. * Post prandial BSGs also downtrended today. In addition to NPH decrease, novolog scale will be loosened as well. * Patient is tolerating a diet 06/24: * BSGs much better controlled overnight and this morning with a fasting BSG of 136 mg/dL. Continue current lantus scale. * Patient continues on IV dexamethasone. Continue NPH to cover steroid effects. Continue current novolog scale, will monitor closely and adjust if insulin needs change. 06/23 * * Ms Sousa is a 75 y/o F with a PMH of T2DM (unknown control) who presents with COVID-19 infection. Patient given dexamethasone 6 mg IV in the ED and ongoing dexamethasone 6 mg IV daily is started for tomorrow. * Patient's admission BSG was 222 mg/dL. She is on two orals at home. * Pharmacy consulted after breakfast accucheck of 252 mg/dL. * Started with Lantus 42 units (longterm between full weight-based stress of 2 and 3) plus weight-based stress of 3 Novolog. Morning insulin had already been given so gave additional Lantus and Novolog. For Lantus tomorrow, scale of weight-based doses. * Chose Lantus 42 units because suspect patient's true basal needs are probably around 30 units/day (weight-based stress of 2) ... then added some Lantus to overcome steroid hyperglycemia. * Hold oral medications. PLAN FOR INPATIENT GLYCEMIC CONTROL: * Hold outpatient oral diabetes medications * Basal insulin * Lantus 15-35 units daily (15 units if BSG < 120 mg/dL; 25 units if BSG 120- 160 mg/dL; 35 units if BSG greater than 160 mg/dL) * NPH 30 units QD with dexamethsone * Bolus insulin * NovoLog per scale ACHS or Q6hrs while NPO * Goal Range: Low 110 mg/dL - High 140 mg/dL * Correction Factor: 20 mg/dL/unit * Nutritional / Prandial insulin per carb ratio of 1 unit per 7 grams CHO consumed
--- NOTE | 2020-07-02 10:13 | Discharge Summary ---
Date of Service June 25, 2020 Admission HPI Per Admitting Provider Nata Sousa is a 75yo C female with history of DM, HTN, HLP, CKD presenting with weakness, poor appetite. She was diagnosed with Covid-19 on 06/15/20. She has had nausea, diarrhea, poor appetite and weakness since then as well as altered taste sensation - states that everything tastes very sweet to her. She has a cough productive for scant yellow sputum. She denies fever, chills, SOB, CP or palpitations. 82% on room air on arrival Atrial fibrillation on arrival with no history of AF She is doing well with no additional complaints at this time. ER Course: Metoprolol, Tylenol, NSS Principal Diagnosis COVID-19 Discharge Exam General: patient resting comfortably, NAD, non-toxic in appearance, AA&O x 4 Skin: warm, dry, intact, no rashes or lesions HEENT: NC/AT, PERRL, EOMI, anicteric sclera, conjunctiva without injection, external ear normal to inspection and nontender, nares patent, moist mucus membranes, dentition intact, no oropharyngeal lesions, neck supple, trachea midline, no LAD, no thyromegaly, no JVD Heart: +S1/S2, regular, no m/r/g Lungs: equal air entry bilaterally, no rales/rhonchi, diffuse wheezing throughout Abd: +BS, soft, NT/ND, no masses/organomegaly/ascites Ext: warm, 2+ pulses in UE/LE bilaterally, no clubbing/cyanosis or edema Neuro: nonfocal, patient AA&O x 4, speech intact, no facial droop, moving all extremities on command with equal strength 5/5 Discharge Data Allergies Allergy/AdvReac Type Severity Reaction Status Date / Time Iodinated Contrast Media Allergy Intermediate HIVES, Verified 06/23/20 04:26 ITCHING brimonidine Allergy Mild RED AND Verified 06/23/20 04:26 ITCHY Consultations 06/23/20 04:05 ED Decision to Admit Stat Hospital Course (1) COVID-19: Patient with Covid-19 infection diagnosed on 06/15/20. Hypoxic on arrival at 82% on RA. Afebrile. Late in illness - would not likely benefit from treatment with Remdesivir or plasma at this time Age, comorbid conditions place her at risk for severe disease. Elevated CRP of 14.1, normal procalcitonin. Elevated BNP. -Maintain isolation precautions -Continue Dexamethasone 6mg IV daily, will complete 10 days of this. -Elevated Ddimer most likely in setting of Covid infection. Will not obtain CTA chest at this time -on room air for over 24 hours. Did not require oxygen on ambulation. (2) Elevated troponin: Patient denies CP. ?Demand ischemia in setting of atrial fibrillation -peaked at 0.108, trending down. (3) Atrial fibrillation with rapid ventricular response: New on arrival to ER s/p return to NSR after IV Metoprolol -Lovenox full dose 1mg/kg BID - hypercoag state with Covid -Telemetry monitoring (4) Asthma: Chronic -COntinue Fluticasone/VIlanterol -Albuterol PRN (5) GERD (gastroesophageal reflux disease): Chronic. -Protonix 40mg po daily (6) Glaucoma: Chronic -Continue Dorzolamide (7) Type 2 diabetes mellitus: Chronic -Hold home medications -Lantus 12u BID -ISS -Goal blood sugar 100-140 (8) CKD (chronic kidney disease), stage III: Avoid nephrotoxic agents -Monitor renal function and electrolytes (9) Dyslipidemia: Chronic -Continue Atorvastatin (10) CAD (coronary artery disease): Chronic. -Continue ASA, Atorvastatin, Metoprolol, Olmesartan (11) Hypertension: Blood pressure stable -Continue Amlodipine -Continue Olmesartan -Continue Metoprolol (12) Mild vitamin D deficiency: Chronic -Continue Vitamin D supplementation (13) Left bundle branch block: Chronic. Noted Total Time Total Time Spent Total Time Spent (In Minutes): 32 Total Time Includes: Examination of the Patient, Discharge Planning and Medication Reconciliation Discharge Plan Discharge Items Patient Disposition: Home - Self-Care Reason For Visit: COVID-19, HYPOXIA Discharge Diagnosis: COVID 19 Activity: Resume your previous activity Non-emergency contact: Primary Care Provider Call non-emergency contact if: you have any medication questions Follow-up/Referrals: Rojelio Orona MD [Primary Care Provider] - 07/02/20 3:45 pm (Please follow up with Dr. Orona on Wednesday07/02/20 at 3:45 pm. Please arrive to the office 15 minutes early for your appointment. If you are unable to keep this appointment, please call the office to reschedule at [phone].) Diet: Carb Consistent or DM2 and Heart Healthy Addtl Attending Provider Instructions: Coronavirus disease 2019 (COVID-19) is a virus that causes a respiratory illness. It is caused by a coronavirus called 2019 novel coronavirus (2019- nCoV). There are many types of coronavirus. Coronaviruses are a very common cause of bronchitis. They may sometimes cause lung infection(pneumonia). Symptoms can range from mild to severe respiratory illness. These viruses are also foundin some animals. COVID-19 was first found in people in [facility], in late 2018. In 2020, several cases of COVID-19 have been confirmed in the [place] Public health officials are working to find the source. How the virus spreads is not yet fully known. It may be spread through droplets of fluid that a person coughs or sneezes into the air. It may be spread if you touch a surface with virus on it, such as a handle or object, and then touch your mouth. What are the symptoms of COVID-19? Some people have no symptoms or mild symptoms. Symptoms may appear 2 to 14 days after contact with the virus. Symptoms can include: Fever Coughing Trouble breathing What are possible complications from COVID-19? In many cases, this virus can cause infection (pneumonia) in both lungs. In some cases, this can cause . How is COVID-19 diagnosed? Your healthcare provider will ask about your symptoms. He or she will also ask about your recent travel and contact with sick people. Testing for the virus is only done through the CDC. If yourhealthcare provider thinks you may have COVID- 19, he or she will work with your local health department and the CDC on testing. Follow all instructions from your healthcare provider. COVID-19 is diagnosed by: Nasal and throat swab. A cotton-tipped swab is wiped inside your nose or throat. This is done to check for viruses in your nasal mucus. Sputum culture. A small sample of mucus coughed from your lungs (sputum) is collected if you have a cough. It is checked for the virus. How is COVID-19 treated? There is currently no medicine to treat the virus. Treatment is done to help your body while it fights the virus. This is known as supportive care. Supportive care may include: Pain medicine. These include acetaminophen and ibuprofen. They are used to help ease pain and reduce fever. Bed rest. This helps your body fight the illness. For severe illness, you may need to stay in the hospital. Care during severe illness may include: IV (intravenous) fluids.These are given through a vein to help keep your body hydrated. Oxygen. Supplemental oxygen or ventilation with a breathing machine (ventilator) may be given. This is done to keep enough oxygen in your body. Are you at risk for COVID-19? If youve been to a place where people have been sick with this virus, you are at risk for infection. You are at risk if you: Recently traveled to an affected area Had contact with a sick person who recently traveled to this area Had contact with a person who was diagnosed with COVID-19 How can COVID-19 be prevented? There is no vaccine yet. The best prevention is to not have contact with the virus. The CDC advises that people should not travel to areas where there are COVID-19 outbreaks right now for any reason that is not urgent. To help prevent spreading the infection, wash your hands often, or use an alcohol-basedhand senior human resources representative. If you are in an area with COVID-19: Wash your hands often. Or use an alcohol-based hand senior human resources representative often. Only touch your eyes, nose, or mouth with clean hands. Dont have contact with people who are sick. Follow local instructions about being in public. For example, you may be told to not use public transport for a period of time. Stay away from markets that have live or animals. Wash your hands after touching any animals. Don't touch animals that may be sick. Dont share eating or drinking tools with sick people. Dont kiss someone who is sick. Clean surfaces often with disinfectant. If you were in an area with COVID-19 in the last 14 days: Call your healthcare provider. He or she can talk with local health staff to see what action may be needed. Follow all instructions from your provider. Take your temperature every morning and evening for at least 14 days. This is to check for fever. Keep a record of the readings. Keep watch for symptoms of the virus. Tell your provider right away if you have symptoms. If you were in an area with COVID-19 and have a fever or other symptoms: Dont panic. Keep in mind that other illnesses can cause similar symptoms. Stay away from work, school, and public places. Limit physical contact with family members. Don't kiss anyone or share eating or drinking utensils. Clean surfaces you touch with disinfectant. This is to help prevent the virus from spreading. Call your healthcare provider. Explain that you have been exposed to COVID-19 and have symptoms. Do this before going to any hospital. Wait for instructions. Keep in mind that healthcare staff may wear protective equipment such as masks, gowns, gloves, and eye protection. You may be put in a separate room. This is to prevent the possible virus from spreading. Tell the healthcare staff about recent travel. This includes local travel on public transport. Staff may need to find other people you have been in contact with. Follow all instructions the healthcare staff give you. If you have been diagnosed with COVID-19 Follow all instructions from your healthcare provider. Dont leave your home, except to get medical care. Call your healthcare providers office before going. They can prepare and give you instructions. This will help prevent the virus from spreading. Dont go to work, school, or public areas. Dont use public transport or taxis. Stay away from other people in your home. Have them wear face masks around you. Dont share household items or food. Wear a face mask if you can. This includes at home or in a medical facility. Cover your face with a tissue when you cough or sneeze. Throw the tissue away. Wash your hands. Wash your hands often. Caregivers should: Follow all instructions from healthcare staff. Wear a face mask and protective clothing as advised. Wash hands often. Keep track of the sick persons symptoms. Clean surfaces, fabrics, and laundry thoroughly. Keep other people away from the sick person. When to call your healthcare provider Call your healthcare provider: If youve recently traveled and have symptoms If you have been diagnosed with COVID-19 and your symptoms are worse To learn more To find out more about COVID-19, visit the CDC website at www.cdc.gov/coron avirus/2019-ncov/index.html. 4214-[address] [employer] [place] [address], [place] [address]. All rights reserved. This information is not intended as a substitute for professional medical care. Always follow your healthcare professional's instructions. This information has been adapted from [employer] Pending Studies at Discharge: No Stand-Alone Forms: My [facility], Smoking Cessation Medications and DC Order Prescriptions: New dexamethasone [Decadron] 6 mg tablet 6 mg PO DAILY Qty: 7 RF: 0 Continued multivitamin Tablet 1 tab PO DAILY Qty: 0 RF: 0 ferrous sulfate 325 mg (65 mg iron) Tablet 325 mg PO DAILY Qty: 0 RF: 0 Calcium 600 with Vitamin D3 600 mg(1,500mg) -400 unit Tablet,Chewable 1 tab PO DAILY Qty: 0 RF: 0 dorzolamide 2 % drops 1 drp ophthalmic (eye) BID Qty: 0 RF: 0 metformin 500 mg tablet extended release 24hr 1,000 mg PO QPM Qty: 180 RF: 3 Bystolic 10 mg tablet 10 mg PO DAILY Qty: 90 RF: 3 atorvastatin 20 mg tablet 20 mg PO DAILY Qty: 90 RF: 3 Breo Ellipta 200-25 mcg/dose blister with device 1 inh INH DAILY Qty: 90 RF: 3 Janumet 50-500 mg tablet 1 tab PO DAILY Qty: 90 RF: 4 amlodipine-olmesartan 5-20 mg tablet 1 tab PO DAILY Qty: 90 RF: 3 pantoprazole 40 mg tablet,delayed release (DR/EC) 40 mg PO DAILY Qty: 90 RF: 3 albuterol sulfate [Ventolin HFA] 90 mcg/actuation HFA aerosol inhaler 2 puff INHALATION Q6H PRN (Reason: Shortness Of Breath Or Wheezing) Qty: 1 RF: 0 aspirin 81 mg Tablet,Delayed Release (Dr/Ec) 81 mg PO DAILY RF: 0 ondansetron HCl [Zofran] 4 mg tablet 4 mg PO Q8H PRN (Reason: Nausea) RF: 0 cholecalciferol (vitamin D3) [Vitamin D3] 1,000 unit Capsule 1,000 unit PO DAILY RF: 0 chromium picolinate 1,000 mcg Tablet 1,000 mcg PO DAILY RF: 0 No Action (DME) OneTouch Ultra Blue Test Strip Strip See Rx Instructions .ROUTE .MEDSUPPLY Qty: 200 RF: 1 (DME) blood-glucose meter [OneTouch Ultra2 Meter] Kit See Rx Instructions .ROUTE .MEDSUPPLY Qty: 1 RF: 0 Discharge Orders: Discharge Order (Routine); Ordered 06/25/20 Ordered By: Nelson Prince/Other Patient Handouts: Dexamethasone tablets Admission Data Admit Date/Time: 06/23/20 04:35 Attending Provider: Nelson Mackey Admit Provider: Rosalie Jimenez Primary Care Provider: Rojelio Orona Other Providers: Rosalie Jimenez Other Interventions: Discharge Summary Assessment (RN) Last Done: 06/25/20 14:48 Coding Level of Care Code D/C Day Management >30 mins Diagnoses COVID-19 U07.1 Elevated troponin R77.8 Atrial fibrillation with rapid ventricular response I48.91 Asthma J45.909 Asthma severity: unspecified severity Asthma persistence: unspecified Asthma complication type: unspecified GERD (gastroesophageal reflux disease) K21.9 Esophagitis presence: esophagitis presence not specified Glaucoma H40.9 Glaucoma type: unspecified Type 2 diabetes mellitus E11.22; N18.3 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 transplanted heart: [place] heart Associated angina: without angina Hypertension I10 Hypertension type: essential hypertension Mild vitamin D deficiency E55.9 Left bundle branch block I44.7
== END 2020-06-25 17:20 | disposition home or self-care (01) | DRG 177 ==
LOC: ED 02:26 → SUATTDRO 04:35 → 2E 04:35

== ENCOUNTER 2022-03-25 16:44 | Inpatient (IN) ==
--- NOTE | 2022-03-25 17:00 | ED Triage Note ---
Date of Service March 25, 2022 History of Present Illness This patient was briefly evaluated while in triage. An abbreviated physical exam was performed. This patient is a 77-year-old Female that presents to ED today with dyspnea, and decreased oxygen level. O2 at 84 today. She notes COV - test. Sx started Wednesday. Physical Exam GENERAL: 77 year old female. In no acute distress. SKIN: No lesions or rashes. HEART: Regular rate and rhythm. LUNGS: Clear to auscultation. NEURO: Alert and oriented. No deficits. MUSCULOSKELETAL: No deformities to inspection of the extremities. PSYCH: Patient is pleasant and answers all questions appropriately. Initial orders for labs and / or imaging were placed and patient was placed in the waiting area until a bed is available. Please see further documentation for the full ED course.
[2022-03-25] MEDS ORDERED: ACETAMINOPHEN 500 MG TAB PO STA (17:12)
[2022-03-25] MEDS ORDERED: ALBUT/IPRATROP 3MG/0.5MG NEB 3 ML VIAL NEB STA (17:12)
[2022-03-25] MEDS ORDERED: methylPREDNISolone 125 MG/2 ML VIAL IV STA (17:12)
--- NOTE | 2022-03-25 17:15 | Emergency Department Note ---
Impression & Plan Pneumonia, Asthma exacerbation, Hypomagnesemia ED Provider Note NAME: MELISSA WEBER AGE: 77 SEX: F : 1945 ARRIVES VIA: Walk-In INFORMANT: Patient, ED PROVIDER(S): Nacho Gillespie DO CHIEF COMPLAINT: Difficulty breathing HPI: The patient is a 77-year-old female who presented to the emergency department for an evaluation of difficulty breathing. The patient states that she has noticed a cough which was nonproductive over the course the last few days. She was seen by her primary care physician and had a chest x-ray. This was felt to be secondary to her pneumonia with bronchitis. She was started on steroids and an antibiotic. She started these medications today. She has been using her bronchodilator therapy as well. She denies having any vomiting. She did not know that she had a fever but in triage she was found to have a significant fever. She does have a history of asthma. She also has a history of atrial fibrillation. She states that she has been compliant with her outpatient medication regimen. She notices no swelling in the legs or pain in the legs. The patient states her symptoms worsen with exertion. They do improve with her bronchodilator use as well. ROS: See above HPI for pertinent positives & negatives. A total of 10 systems reviewed and were otherwise negative. PAST MEDICAL HISTORY: See Below PAST SURGICAL HISTORY: See Below FAMILY HISTORY: See Below SOCIAL HISTORY: See Below HOME MEDICATIONS: See Below ALLERGIES: See Below VITALS: See Below PHYSICAL EXAMINATION: GENERAL: Patient is awake alert in no acute distress patient is resting comfortably and showing no signs of anxiety EYES: The conjunctivae are clear. The pupils are round and reactive. EARS, NOSE, MOUTH AND THROAT: The nose is without any evidence of any deformity. NECK: The neck is nontender and supple. RESPIRATORY: Shallow respirations were noted with expiratory wheezing. There was mild conversational dyspnea. CARDIOVASCULAR: Regular rate and rhythm noted there no murmurs rubs or gallops normal S1 normal S2. GASTROINTESTINAL: The abdomen is soft. Abdomen is nontender. MUSCULOSKELETAL/EXTREMITIES: There is no evidence of gross deformity full range of motion is noted in the hips and shoulders. SKIN: Skin is warm and dry. There is no significant pedal edema noted. NEUROLOGIC: Patient is awake alert and oriented x3 MEDICAL DECISION MAKING: The patient is a 77-year-old female who has a history of bronchospasm who pres ented to the emergency department for an evaluation of difficulty breathing. The patient was started on a course of antibiotic and steroid by her primary care physician but symptoms worsened and she was advised to come to the emergency department. Patient was treated with bronchodilator therapy as well as supplemental oxygen. He was also treated with IV steroids and IV antibiotics. I discussed patient's laboratory and radiographic studies with her. Given her findings I also discussed her case with the on-call [facility] hospitalist. She was feeling much better on subsequent reevaluation. She was treated with medication for fever as well. Triage Nursing notes reviewed. Prior medical records reviewed Vital Signs: reviewed and remarkable for fever and elevated blood pressure. Differential diagnosis: Reactive airway disease, pneumonia, pneumothorax, COPD, CHF, infections, cardiac ischemia, pulmonary embolism, musculoskeletal, gastrointestinal, as well as other pathologies. ER treatment provided: See below Diagnostics interpreted by me: ECG: EKG was obtained in the emergency department. My interpretation is normal sinus rhythm at 90 bpm. Left bundle branch block pattern was noted. This was compared to a tracing from January 02, 2021. The left bundle branch block pattern is not new however there was ectopy noted on the previous tracing. Cardiac Monitoring: An order was placed for continuous cardiac monitoring. The monitor shows a rate of 84 bpm with sinus rhythm. Laboratory studies: As stated above and show below. Imaging studies: See below Consultation(s): I discussed this case with Dr. Jimenez who is on-call for the [facility] hospitalist group. Past Med/Surg History Medical History (Updated 03/25/22 @ 20:43 by Rosalie Jimenez, DO) Anemia FOLLOWS HEMATOLOGY, AJALA Asthma WELL CONTROLLED/ NO FLARES FOR A FEW YRS Atrial fibrillation with rapid ventricular response HX AFIB WHILE HOSPITALIZED WITH COVID 19 ([facility] , YRS AGO) - UPON D/C HEART MONITOR WORN...FELT AFIB WAS D/T COVID AT THAT TIME - NO RE-OCCURENCE Barretts esophagus REASON FOR UPCOMING PROCEDURE TO F/U ON CKD (chronic kidney disease), stage III PT NOT SURE DETAILS Dyslipidemia Glaucoma History of obstructive sleep apnea HX + SLEEP APNEA TEST, RE-TESTED AND WAS (-) Hypertension Murmur SOMETIMES DETECTED/FOLLOWS DR HACKETT - ANNUAL ECHOCARDIOGRAMS Myocardial Infarction AGE 38 Osteoarthritis Osteopenia Type 2 diabetes mellitus Surgical History Hip fracture requiring operative repair right pinning and screws History of cardiac cath AGE 38 ...[facility] /NO STENT(S) History of cataract surgery BOTH History of colonoscopy History of esophagogastroduodenoscopy (EGD) History of tubal ligation Family History Mother FHx: cancer Cancer Family/Other Asthma Brother Diabetes Brother Diabetes Denies family history of Ovarian cancer Prostate cancer Myocardial infarction Lung cancer Colorectal cancer Social History Smoking Status: Never smoker Second Hand Exposure: No; Hx Alcohol Use: No Hx Substance Use: No Preferred Language: Chadian Communication Ability: Effective Visual Impairment: Limited Hearing Ability: Normal Rag Grader Required: No Beliefs That Will Affect Care: None marital status: Current Living Situation: Spouse current occupational status: retired Feels Safe at Home: Yes Childhood Exposure to Second-Hand Smoke: Yes caffeine: Yes Dental Care, Regularly: Yes Physical Activity Frequency: 3-4 Times per Week Seatbelt Use: always Sunscreen Use: No Assistive Devices: Glasses Allergies Allergies Allergy/AdvReac Type Severity Reaction Status Date / Time Iodinated Contrast Media Allergy Unknown HIVES, Verified 03/25/22 20:31 ITCHING Home Meds Home Medications Medication Instructions Recorded Confirmed ferrous sulfate 325 mg (65 mg 325 mg PO BID ##0 04/01/17 03/25/22 iron) tablet multivitamin 1 tab PO QPM #0 tabs 04/01/17 03/25/22 calcium carbonate 600 mg-vitamin 1 tab PO QPM ##0 12/14/17 03/25/22 D3 10 mcg (400 unit) chewable tablet (Calcium 600 with Vitamin D3) chromium picolinate 1,000 mcg 1,000 mcg PO QPM 10/27/18 03/25/22 tablet dorzolamide 2 % eye drops 1 drp ophthalmic (eye) BID ##0 02/15/19 03/25/22 torsemide 10 mg tablet 10 mg PO UD PRN ANKLE SWELLING 10/13/21 03/25/22 amlodipine 5 mg-olmesartan 20 mg 1 tab PO QAM 12/11/21 03/25/22 tablet atorvastatin 20 mg tablet 20 mg PO QAM 12/11/21 03/25/22 brimonidine 0.15 % eye drops 1 drp OPB BID 12/11/21 03/25/22 nebivolol 10 mg tablet (Bystolic) 10 mg PO QAM 12/11/21 03/25/22 Previous Rx's Medication Instructions Recorded albuterol sulfate 90 mcg/actuation 2 puff inhalation Q6H PRN 06/14/20 aerosol inhaler (Ventolin HFA) Shortness Of Breath Or Wheezing #1 inhaler blood sugar diagnostic (OneTouch #200 ea 06/26/20 Ultra Blue Test Strip) blood-glucose meter (OneTouch #1 ea 06/26/20 Ultra2 Meter kit) fluticasone furoate 200 1 inh inhalation QPM #90 ea 01/20/22 mcg-vilanterol 25 mcg/dose inhalation powder (Breo Ellipta) pantoprazole 40 mg tablet,delayed 40 mg PO QPM #90 tabs 01/20/22 release metformin 500 mg tablet,extended 1,000 mg PO QPM #180 tabs 03/23/22 release 24hr sitagliptin 50 mg-metformin 500 mg 1 tab PO QAM #90 tabs 03/23/22 tablet (Janumet) doxycycline monohydrate 100 mg 100 mg PO BID #14 caps 03/24/22 capsule prednisone 20 mg tablet 20 mg PO BID #10 tabs 03/24/22 Results & Data (ED) Vital Signs Vital Signs - 24 hr 03/25/22 16:58 03/25/22 17:18 03/25/22 17:29 Temperature 39.1 C H Temperature Source Temporal Artery Scan Pulse Rate 87 Pulse Rate [Right Finger] Respiratory Rate 20 Respiratory Effort / Characteristics Non-Labored Respiratory Depth Normal Blood Pressure 169/76 H Blood Pressure [Right Arm] Blood Pressure Mean 107 Blood Pressure Mean [Right Arm] Pulse Oximetry 94 87 L 94 Oxygen Delivery Method Room Air Room Air Nasal Cannula Oxygen Flow Rate 2 Sepsis Recent Fever Within 48 Hours No Sepsis New/Unexplained Change in Mental Status No Sepsis Action Taken by Nursing No Action Required 03/25/22 18:32 03/25/22 18:50 03/25/22 19:28 Temperature Temperature Source Pulse Rate Pulse Rate [Right Finger] 90 88 84 Respiratory Rate 32 H 22 22 Respiratory Effort / Characteristics Respiratory Depth Blood Pressure Blood Pressure [Right Arm] 168/87 H 165/89 H 182/96 H Blood Pressure Mean Blood Pressure Mean [Right Arm] 114 114 124 Pulse Oximetry 93 95 96 Oxygen Delivery Method Nasal Cannula Nasal Cannula Nasal Cannula Oxygen Flow Rate 2 2 2 Sepsis Recent Fever Within 48 Hours Sepsis New/Unexplained Change in Mental Status Sepsis Action Taken by [facility] Medications Current Medication List: was personally reviewed by me Laboratory Data Attestation: I reviewed the patient's lab results. Result diagrams: 03/25/22 17:23 03/25/22 17:23 Lab Results 03/25/22 03/25/22 03/25/22 Range/Units 17:23 17:23 17:23 WBC 9.08 (4.8-10.8) K/ul RBC 3.70 L (3.93-5.22) M/uL Hgb 11.2 L (12.0-16.0) g/dl Hct 33.1 L (34.1-44.9) % MCV 89.5 (80.0-100.0) fL MCH 30.3 (25.0-34.0) pg MCHC 33.8 (32.0-36.0) g/dL RDW Std Deviation 46.0 (36.4-46.3) fL RDW Coeff of Aman 14.1 (11.5-14.5) % Plt Count 197 (130-400) K/uL MPV 11.2 (9.4-12.3) fL Immature Gran % (Auto) 0.6 % Neut % (Auto) 83.0 % Lymph % (Auto) 12.1 % [place] % (Auto) 4.0 % Eos % (Auto) 0.1 % Baso % (Auto) 0.2 % Neut # (Auto) 7.54 H (1.4-6.5) K/uL Lymph # (Auto) 1.10 L (1.2-3.4) K/uL [place] # (Auto) 0.36 (0.24-0.82) K/uL Eos # (Auto) 0.01 (0-0.50) K/uL Baso # (Auto) 0.02 (0-0.2) K/uL Immature Gran # (Auto) 0.05 H (0.00-0.02) K/uL PT 11.4 (9.0-12.0) Seconds INR 1.1 (0.9-1.1) APTT 31.6 H (21.0-31.0) Seconds PTT Ratio 1.1 Sodium (136-145) mmol/L Potassium (3.5-5.1) mmol/L Chloride (98-107) mmol/L Carbon Dioxide (21-32) mmol/L Anion Gap (3-11) BUN (6-23) mg/dl Creatinine (0.6-1.2) mg/dl Est Cr Clr Drug Dosing Est GFR ( Amer) ml/min Est GFR (Non-Af Amer) ml/min BUN/Creatinine Ratio (10-20) Glucose (70-99(Fasting)) mg/dl Lactate (0.4-2.0) mmol/L Calcium (8.5-10.1) mg/dl Phosphorus (2.5-4.9) mg/dl Magnesium (1.7-2.4) mg/dl Total Bilirubin (0.2-1.0) mg/dl AST (13-39) U/L ALT (7-52) U/L Alkaline Phosphatase (34-104) U/L Troponin I High Sens (0-14) pg/ml B-Natriuretic Peptide (0-100) pg/ml Total Protein (6.0-8.3) gm/dl Albumin (3.4-5.0) gm/dl Globulin (2.5-4.0) gm/dl Albumin/Globulin Ratio (0.9-2) Procalcitonin < 0.05 (0-0.5) ng/ml Adenovirus (PCR) (NotDetected) B. pertussis DNA (PCR) (NotDetected) B.parapertussis DNA PCR (NotDetected) C. pneumoniae DNA (PCR) (NotDetected) Coronavirus OC43 (PCR) (NotDetected) Coronavirus HKU1 (PCR) (NotDetected) Coronavirus 229E (PCR) (NotDetected) SARS-CoV-2 (PCR) (NotDetected) Coronavirus NL63 (PCR) (NotDetected) Human Metapneumovir PCR (NotDetected) Influenza Type A (PCR) (NotDetected) Influenza Type B (PCR) (NotDetected) M. pneumoniae (PCR) (NotDetected) Parainfluenza 1 (PCR) (NotDetected) Parainfluenza 2 (PCR) (NotDetected) Parainfluenza 3 (PCR) (NotDetected) Parainfluenza 4 (PCR) (NotDetected) RSV (PCR) (NotDetected) Entero/Rhino (PCR) (NotDetected) 03/25/22 03/25/22 03/25/22 Range/Units 17:23 17:23 17:26 WBC (4.8-10.8) K/ul RBC (3.93-5.22) M/uL Hgb (12.0-16.0) g/dl Hct (34.1-44.9) % MCV (80.0-100.0) fL MCH (25.0-34.0) pg MCHC (32.0-36.0) g/dL RDW Std Deviation (36.4-46.3) fL RDW Coeff of Aman (11.5-14.5) % Plt Count (130-400) K/uL MPV (9.4-12.3) fL Immature Gran % (Auto) % Neut % (Auto) % Lymph % (Auto) % [place] % (Auto) % Eos % (Auto) % Baso % (Auto) % Neut # (Auto) (1.4-6.5) K/uL Lymph # (Auto) (1.2-3.4) K/uL [place] # (Auto) (0.24-0.82) K/uL Eos # (Auto) (0-0.50) K/uL Baso # (Auto) (0-0.2) K/uL Immature Gran # (Auto) (0.00-0.02) K/uL PT (9.0-12.0) Seconds INR (0.9-1.1) APTT (21.0-31.0) Seconds PTT Ratio Sodium 137 (136-145) mmol/L Potassium 4.3 (3.5-5.1) mmol/L Chloride 105 (98-107) mmol/L Carbon Dioxide 21 (21-32) mmol/L Anion Gap 11 (3-11) BUN 21 (6-23) mg/dl Creatinine 1.41 H (0.6-1.2) mg/dl Est Cr Clr Drug Dosing Not Reportable Est GFR ( Amer) 41.8 ml/min Est GFR (Non-Af Amer) 36.1 ml/min BUN/Creatinine Ratio 14.9 (10-20) Glucose 188 H (70-99(Fasting)) mg/dl Lactate (0.4-2.0) mmol/L Calcium 9.3 (8.5-10.1) mg/dl Phosphorus 2.7 (2.5-4.9) mg/dl Magnesium 1.2 L (1.7-2.4) mg/dl Total Bilirubin 1.3 H (0.2-1.0) mg/dl AST 17 (13-39) U/L ALT 11 (7-52) U/L Alkaline Phosphatase 58 (34-104) U/L Troponin I High Sens 16.8 H (0-14) pg/ml B-Natriuretic Peptide (0-100) pg/ml Total Protein 7.6 (6.0-8.3) gm/dl Albumin 4.2 (3.4-5.0) gm/dl Globulin 3.4 (2.5-4.0) gm/dl Albumin/Globulin Ratio 1.2 (0.9-2) Procalcitonin (0-0.5) ng/ml Adenovirus (PCR) Not Detected (NotDetected) B. pertussis DNA (PCR) Not Detected (NotDetected) B.parapertussis DNA PCR Not Detected (NotDetected) C. pneumoniae DNA (PCR) Not Detected (NotDetected) Coronavirus OC43 (PCR) Not Detected (NotDetected) Coronavirus HKU1 (PCR) Not Detected (NotDetected) Coronavirus 229E (PCR) Not Detected (NotDetected) SARS-CoV-2 (PCR) Not Detected (NotDetected) Coronavirus NL63 (PCR) Not Detected (NotDetected) Human Metapneumovir PCR Not Detected (NotDetected) Influenza Type A (PCR) Not Detected (NotDetected) Influenza Type B (PCR) Not Detected (NotDetected) M. pneumoniae (PCR) Not Detected (NotDetected) Parainfluenza 1 (PCR) Not Detected (NotDetected) Parainfluenza 2 (PCR) Not Detected (NotDetected) Parainfluenza 3 (PCR) Not Detected (NotDetected) Parainfluenza 4 (PCR) Not Detected (NotDetected) RSV (PCR) DETECTED A* (NotDetected) Entero/Rhino (PCR) Not Detected (NotDetected) 03/25/22 03/25/22 Range/Units 18:18 18:18 WBC (4.8-10.8) K/ul RBC (3.93-5.22) M/uL Hgb (12.0-16.0) g/dl Hct (34.1-44.9) % MCV (80.0-100.0) fL MCH (25.0-34.0) pg MCHC (32.0-36.0) g/dL RDW Std Deviation (36.4-46.3) fL RDW Coeff of Aman (11.5-14.5) % Plt Count (130-400) K/uL MPV (9.4-12.3) fL Immature Gran % (Auto) % Neut % (Auto) % Lymph % (Auto) % [place] % (Auto) % Eos % (Auto) % Baso % (Auto) % Neut # (Auto) (1.4-6.5) K/uL Lymph # (Auto) (1.2-3.4) K/uL [place] # (Auto) (0.24-0.82) K/uL Eos # (Auto) (0-0.50) K/uL Baso # (Auto) (0-0.2) K/uL Immature Gran # (Auto) (0.00-0.02) K/uL PT (9.0-12.0) Seconds INR (0.9-1.1) APTT (21.0-31.0) Seconds PTT Ratio Sodium (136-145) mmol/L Potassium (3.5-5.1) mmol/L Chloride (98-107) mmol/L Carbon Dioxide (21-32) mmol/L Anion Gap (3-11) BUN (6-23) mg/dl Creatinine (0.6-1.2) mg/dl Est Cr Clr Drug Dosing Est GFR ( Amer) ml/min Est GFR (Non-Af Amer) ml/min BUN/Creatinine Ratio (10-20) Glucose (70-99(Fasting)) mg/dl Lactate 0.9 (0.4-2.0) mmol/L Calcium (8.5-10.1) mg/dl Phosphorus (2.5-4.9) mg/dl Magnesium (1.7-2.4) mg/dl Total Bilirubin (0.2-1.0) mg/dl AST (13-39) U/L ALT (7-52) U/L Alkaline Phosphatase (34-104) U/L Troponin I High Sens (0-14) pg/ml B-Natriuretic Peptide 985 H (0-100) pg/ml Total Protein (6.0-8.3) gm/dl Albumin (3.4-5.0) gm/dl Globulin (2.5-4.0) gm/dl Albumin/Globulin Ratio (0.9-2) Procalcitonin (0-0.5) ng/ml Adenovirus (PCR) (NotDetected) B. pertussis DNA (PCR) (NotDetected) B.parapertussis DNA PCR (NotDetected) C. pneumoniae DNA (PCR) (NotDetected) Coronavirus OC43 (PCR) (NotDetected) Coronavirus HKU1 (PCR) (NotDetected) Coronavirus 229E (PCR) (NotDetected) SARS-CoV-2 (PCR) (NotDetected) Coronavirus NL63 (PCR) (NotDetected) Human Metapneumovir PCR (NotDetected) Influenza Type A (PCR) (NotDetected) Influenza Type B (PCR) (NotDetected) M. pneumoniae (PCR) (NotDetected) Parainfluenza 1 (PCR) (NotDetected) Parainfluenza 2 (PCR) (NotDetected) Parainfluenza 3 (PCR) (NotDetected) Parainfluenza 4 (PCR) (NotDetected) RSV (PCR) (NotDetected) Entero/Rhino (PCR) (NotDetected) Administered Medications Albuterol (Albut/Ipratrop 3mg/0.5mg Neb 3 Ml Vial) 3 ml NEB Q4R CONNIE; Protocol Stop: 04/24/22 22:59 Last Admin: 03/25/22 23:34 Dose: 3 ml Documented By: HENOK Brimonidine Tartrate (Brimonidine Tartrate-P 0.15% 5 Ml Btl) 1 drops OPB BID CONNIE Stop: 04/24/22 22:24 Last Admin: 03/25/22 23:24 Dose: 1 drops Documented By: SHARMAINE Dorzolamide HCl (Dorzolamide Hcl 2% Oph Soln 10 Ml Btl) 1 drops OP BID CONNIE Stop: 04/24/22 22:24 Last Admin: 03/25/22 23:24 Dose: 1 drops Documented By: SHARMAINE Fluticasone/Vilanterol (Fluticasone/Vilanterol 200/25mcg 14 Puffs/Inhaler) 1 puffs INH QPM CONNIE Stop: 04/24/22 22:24 Last Admin: 03/25/22 23:26 Dose: Not Given Documented By: SHARMAINE Methylprednisolone 40 mg/ (Syringe) 0.64 mls @ 1.5 mls/min IV Q8H CONNIE Stop: 04/24/22 22:59 Last Admin: 03/25/22 23:30 Dose: 1.5 mls/min Documented By: SHARMAINE Magnesium Sulfate/Dextrose (Magnesium Sulfate / D5w) 1 gm in 100 mls @ 50 mls/hr IV Q2H CONNIE Stop: 03/26/22 02:59 Last Admin: 03/25/22 23:51 Dose: 50 mls/hr Documented By: SHARMAINE Insulin Aspart (Insulin Aspart Per Unit) 0 units SC ACHS CONNIE Stop: 04/24/22 22:59 Last Admin: 03/25/22 23:44 Dose: 6 units Documented By: SHARMAINE Co-signed By: DAHLIA Insulin Glargine (Lantus Per Unit Charge) 7 units SQ BID CONNIE Stop: 04/24/22 22:24 Last Admin: 03/25/22 23:43 Dose: 7 units Documented By: SHARMAINE Co-signed By: DAHLIA Pantoprazole Sodium (Pantoprazole 40 Mg Tab) 40 mg PO QPM CONNIE Stop: 04/24/22 22:24 Last Admin: 03/25/22 23:24 Dose: 40 mg Documented By: SHARMAINE Discontinued Medications Acetaminophen (Acetaminophen 500 Mg Tab) 1,000 mg PO NOW STA Stop: 03/25/22 17:13 Last Admin: 03/25/22 17:35 Dose: 1,000 mg Documented By: ASW Albuterol (Albut/Ipratrop 3mg/0.5mg Neb 3 Ml Vial) 3 ml NEB NOW STA; Protocol Stop: 03/25/22 17:13 Last Admin: 03/25/22 17:34 Dose: 3 ml Documented By: ASW Furosemide (Furosemide 40 Mg/4 Ml Vial) 40 mg IV ONE ONE Stop: 03/25/22 22:26 Last Admin: 03/25/22 23:29 Dose: 40 mg Documented By: SHARMAINE Magnesium Sulfate/Dextrose (Magnesium Sulfate / D5w) 1 gm in 100 mls @ 100 mls/hr IV Q1H CONNIE Stop: 03/25/22 20:09 Last Infusion: 03/25/22 21:57 Dose: 0 mls/hr Documented By: Admin: 03/25/22 20:42 Dose: 100 mls/hr Documented By: Infusion: 03/25/22 19:48 Dose: 0 mls/hr Documented By: Admin: 03/25/22 18:50 Dose: 100 mls/hr Documented By: ASW Ceftriaxone Sodium (Rocephin) 2,000 mg in 70 mls @ 140 mls/hr IV NOW STA Stop: 03/25/22 19:14 Last Infusion: 03/25/22 21:13 Dose: 0 mls/hr Documented By: Admin: 03/25/22 20:00 Dose: 140 mls/hr Documented By: ASW Methylprednisolone (Methylprednisolone 125 Mg/2 Ml Vial) 125 mg IV NOW STA Stop: 03/25/22 17:13 Last Admin: 03/25/22 17:35 Dose: 125 mg Documented By: ASW Imaging Data Radiologist's Impression: Chest X-Ray 03/25/22 17:00 XR chest 1V portable HISTORY: Dyspnea, fever COMPARISON: Chest 03/24/2022. FINDINGS: No pneumothorax. No pleural effusions. The heart remains enlarged. Interval progression of the perihilar interstitial/vascular thickening consistent with mild pulmonary edema. Hazy appearance of the right lung base likely represents the pulmonary edema. A developing pneumonia could also have a similar appearance. IMPRESSION: 1. Cardiomegaly with interval development of mild interstitial pulmonary edema. 2. Hazy appearance to the right lung base likely represents the pulmonary edema. A superimposed pneumonia could also a similar appearance. ACT 112: Negative or not required by law. Electronically signed by: Iain Wiggins M.D. 03/25/2022 5:30 PM Discharge Plan Visit Data Chief Complaint: Shortness of Breath/Dyspnea Stated Complaint: ASTHMA, BRONCHITIS, LOW OXYGEN LEVELS, SOB ED Provider: Nacho Gillespie Discharge Problem: Pneumonia, Asthma exacerbation, Hypomagnesemia Patient Disposition: Admitted As Inpatient Discharge Instructions Interventions: ED Discharge Assessment Last Done: 03/25/22 21:40 : Pneumonia Qualifiers: Pneumonia type: due to unspecified organism Laterality: unspecified laterality Lung location: unspecified part of lung Qualified Code(s): J18.9 - Pneumonia, unspecified organism Asthma exacerbation Qualifiers: Asthma severity: moderate Asthma persistence: unspecified Qualified Code(s): J45.901 - Unspecified asthma with (acute) exacerbation
--- NOTE | 2022-03-25 17:32 | XRay Report ---
XR chest 1V portable HISTORY: Dyspnea, fever COMPARISON: Chest 03/24/2022. FINDINGS: No pneumothorax. No pleural effusions. The heart remains enlarged. Interval progression of the perihilar interstitial/vascular thickening consistent with mild pulmonary edema. Hazy appearance of the right lung base likely represents the pulmonary edema. A developing pneumonia could also have a similar appearance. IMPRESSION: 1. Cardiomegaly with interval development of mild interstitial pulmonary edema. 2. Hazy appearance to the right lung base likely represents the pulmonary edema. A superimposed pneum onia could also a similar appearance. ACT 112: Negative or not required by law. Electronically signed by: Iain Wiggins M.D. 03/25/2022 5:30 PM
[2022-03-25 17:41] LABS: Basophils # (auto) 0.02 K/uL (0-0.2); Basophils % (auto) 0.2 %; Eosinophils # (auto) 0.01 K/uL (0-0.50); Eosinophils % (auto) 0.1 %; Hematocrit (blood only) 33.1 % (34.1-44.9); Hemoglobin 11.2 g/dl (12.0-16.0); Immature Granulocytes # (auto) 0.05 K/uL (0.00-0.02); Immature Granulocytes % (auto) 0.6 %; Lymphocytes % (auto) 12.1 %; Mean Corpuscular Hemoglobin 30.3 pg (25.0-34.0); Mean Corpuscular Hgb Conc 33.8 g/dL (32.0-36.0); Mean Corpuscular Volume 89.5 fL (80.0-100.0); Mean Platelet Volume 11.2 fL (9.4-12.3); Monocytes # (auto) 0.36 K/uL (0.24-0.82); Neutrophils # (auto) 7.54 K/uL (1.4-6.5); Platelet Count 197 K/uL (130-400); RDW Coefficient of Variation 14.1 % (11.5-14.5); White Blood Count 9.08 K/ul (4.8-10.8)
[2022-03-25 17:54] LABS: INR 1.1 (0.9-1.1); Partial Thromboplastin Ratio 1.1; Partial Thromboplastin Time 31.6 Seconds (21.0-31.0); Prothrombin Time 11.4 Seconds (9.0-12.0)
[2022-03-25 18:05] LABS: Alanine Aminotransferase 11 U/L (7-52); Albumin Globulin Ratio 1.2 (0.9-2); Albumin Level 4.2 gm/dl (3.4-5.0); Alkaline Phosphatase 58 U/L (34-104); Anion Gap 11 (3-11); Aspartate Aminotransferase 17 U/L (13-39); BUN Creatinine Ratio 14.9 (10-20); Bilirubin,Total 1.3 mg/dl (0.2-1.0); Blood Urea Nitrogen 21 mg/dl (6-23); Calcium 9.3 mg/dl (8.5-10.1); Carbon Dioxide 21 mmol/L (21-32); Chloride 105 mmol/L (98-107); Est GFR (African American) 41.8 ml/min; Est GFR (Non-African American) 36.1 ml/min; Globulin 3.4 gm/dl (2.5-4.0); Glucose 188 mg/dl (70-99(Fasting)); Magnesium 1.2 mg/dl (1.7-2.4); Potassium 4.3 mmol/L (3.5-5.1); Sodium 137 mmol/L (136-145); Total Protein 7.6 gm/dl (6.0-8.3)
[2022-03-25 18:08] LABS: Troponin I High Sensitivity 16.8 pg/ml (0-14)
[2022-03-25 18:35] LABS: Adenovirus PCR Not Detected (NotDetected); Bordetella parapertussis PCR Not Detected (NotDetected); Bordetella pertussis PCR Not Detected (NotDetected); Chlamydia pneumoniae PCR Not Detected (NotDetected); Coronavirus 229E PCR Not Detected (NotDetected); Coronavirus CoV-2 (COVID19)PCR Not Detected (NotDetected); Coronavirus HKU1 PCR Not Detected (NotDetected); Coronavirus NL63 PCR Not Detected (NotDetected); Coronavirus OC43PCR Not Detected (NotDetected); Human Metapneumovirus PCR Not Detected (NotDetected); Influenza A PCR Not Detected (NotDetected); Influenza B PCR Not Detected (NotDetected); Mycoplasma pneumoniae PCR Not Detected (NotDetected); Parainfluenza Virus 1 PCR Not Detected (NotDetected); Parainfluenza Virus 2 PCR Not Detected (NotDetected); Parainfluenza Virus 3 PCR Not Detected (NotDetected); Parainfluenza Virus 4 PCR Not Detected (NotDetected); Rhinovirus/Enterovirus PCR Not Detected (NotDetected)
[2022-03-25 18:40] LABS: Respiratory Syncytial VirusPCR DETECTED (NotDetected)
[2022-03-25] MEDS ORDERED: cefTRIAXone SODIUM 2,000 MG/70 ML BAG IV STA (18:45)
[2022-03-25] MEDS: MAGNESIUM SULFATE / D5W 1 GM/100 ML BAG IV SCH ×3 (18:50→23:51)
--- NOTE | 2022-03-25 20:17 | History & Physical Report ---
Date of Service March 25, 2022 Assessment & Plan (1) RSV bronchitis: Plan: 77yo female with history of asthma presenting with 3 days of cough, wheeze and BLAIR. Patient febrile on arrival, hypoxic to 87% on room air which improved with supplemental NC 2L. Patient found to have RSV on BioFire panel most likely contributing to asthma exacerbation as well. Do not suspect concomitant bacterial PNA based on normal WBC and negative procalcitonin. -Maintain droplet precautions -Supportive care (2) Asthma exacerbation: Plan: Patient with diffuse end-expiratory wheezing. Suspect asthma exacerbation in setting of RSV bronchitis. -Solumedrol 40mg IV TID -DuoNeb q 6 hour -Albuterol q 2 hours PRN -Magnesium given -Continue Fluticasone/Vilanterol -Will give Lasix 40mg IV x 1, monitor output (3) Hypomagnesemia: Plan: Hypomagnesemia with Mg=1.3. 2gm ordered in the ER -Replete with 4gm total -Repeat Mg in AM (4) CAD (coronary artery disease): Plan: Chronic. Patient denies chest pain. She follows with Dr. Menendez, last seen October 2021. Most recent echo from October 2021 with moderate LV systolic dysfunction and akinesis of the LV apex and distal inferior segment -Continue Atorvastatin -Continue Amlodipine-Olmesartan (5) GERD (gastroesophageal reflux disease): Plan: Chronic. Stable on medications -Continue Protonix 40mg po daily (6) Paroxysmal atrial fibrillation: Plan: Patient presently in NSR. On Bystolic at home -Will treat with Metoprolol 12.5mg po BID -Not on anticoagulation (7) Type 2 diabetes mellitus: Plan: Patient with well controlled DM, last FnfM9C=8.2 on 11/06/21 -Hold home medications, Sitagliptin-Metrormin -Lantus 7u BID -ISS -Goal blood sugar 110 - 140 F/E/N - Lasix 40mg IV x 1, monitor electrolytes, repeat BMP and Mg in AM, CC diet as tolerated Ppx - Lovenox 40mg daily Code - Full per discussion with patient Dispo - Admit to medical History of Present Illness Chief Complaint: cough, SOB, wheeze Primary Care Provider: Rojelio Oroan MD Nata Sousa is a pleasant 77yo female with history of Asthma, HTN, HLP, DM, GERD, PAF and CAD presenting with 3 days of cough, SOB and wheeze. Patient reports cough productive for yellow sputum as well as BLAIR, chest tightness and wheeze. She has been having some mild nausea and diarrhea as well. Patient was seen by her PCP yesterday. She had a CXR performed which showed no evidence of pneumonia. She was told that she was having an asthma exacerbation, bronchitis and some mild dehydration. She was prescribed Doxycycline 100mg po BID and a Prednisone taper. She took one dose of these medications this AM. Today she had marked worsening of her fatigue and weakness. She reports becoming short of breath with ambulating short distances in her home. She denies fever prior to arrival although she was febrile in the ER. Denies sweats, chest pain, palpitations, abdominal pain. She has had a poor appetite with some decreased oral intake. No additional complaints at this time. Upon arrival to the ER patient febrile at 39.1, HD stable, hypoxic at 87% on room air. She was place on supplemental O2 by [place] with improvement in saturation. Presently 95% on 2L ER Course: Acetaminophen, Albuterol, Ceftriaxone 2gm, Magnesium 1gm, Solumedrol 125mg Allergies Allergy/AdvReac Type Severity Reaction Status Date / Time Iodinated Contrast Media Allergy Unknown HIVES, Verified 03/25/22 20:31 ITCHING Home Medications Medication Instructions Recorded Confirmed Type ferrous sulfate 325 mg (65 mg 325 mg PO BID ##0 04/01/17 03/25/22 History iron) tablet multivitamin 1 tab PO QPM #0 tabs 04/01/17 03/25/22 History calcium carbonate 600 mg-vitamin 1 tab PO QPM ##0 12/14/17 03/25/22 History D3 10 mcg (400 unit) chewable tablet (Calcium 600 with Vitamin D3) chromium picolinate 1,000 mcg 1,000 mcg PO QPM 10/27/18 03/25/22 History tablet dorzolamide 2 % eye drops 1 drp ophthalmic (eye) BID ##0 02/15/19 03/25/22 History albuterol sulfate 90 mcg/actuation 2 puff inhalation Q6H PRN 06/14/20 03/25/22 Rx aerosol inhaler (Ventolin HFA) Shortness Of Breath Or Wheezing #1 inhaler blood sugar diagnostic (OneTouch #200 ea 06/26/20 03/24/22 Rx Ultra Blue Test Strip) blood-glucose meter (OneTouch #1 ea 06/26/20 03/24/22 Rx Ultra2 Meter kit) torsemide 10 mg tablet 10 mg PO UD PRN ANKLE SWELLING 10/13/21 03/25/22 History amlodipine 5 mg-olmesartan 20 mg 1 tab PO QAM 12/11/21 03/25/22 History tablet atorvastatin 20 mg tablet 20 mg PO QAM 12/11/21 03/25/22 History brimonidine 0.15 % eye drops 1 drp OPB BID 12/11/21 03/25/22 History nebivolol 10 mg tablet (Bystolic) 10 mg PO QAM 12/11/21 03/25/22 History fluticasone furoate 200 1 inh inhalation QPM #90 ea 01/20/22 03/25/22 Rx mcg-vilanterol 25 mcg/dose inhalation powder (Breo Ellipta) pantoprazole 40 mg tablet,delayed 40 mg PO QPM #90 tabs 01/20/22 03/25/22 Rx release metformin 500 mg tablet,extended 1,000 mg PO QPM #180 tabs 03/23/22 03/25/22 Rx release 24hr sitagliptin 50 mg-metformin 500 mg 1 tab PO QAM #90 tabs 03/23/22 03/25/22 Rx tablet (Janumet) doxycycline monohydrate 100 mg 100 mg PO BID #14 caps 03/24/22 03/25/22 Rx capsule prednisone 20 mg tablet 20 mg PO BID #10 tabs 03/24/22 03/25/22 Rx Past Med/Surg History Medical History (Updated 03/25/22 @ 20:43 by Rosalie Jimenez DO) Anemia FOLLOWS HEMATOLOGY, AJALA Asthma WELL CONTROLLED/ NO FLARES FOR A FEW YRS Atrial fibrillation with rapid ventricular response HX AFIB WHILE HOSPITALIZED WITH COVID 19 ([facility] , YRS AGO) - UPON D/C HEART MONITOR WORN...FELT AFIB WAS D/T COVID AT THAT TIME - NO RE-OCCURENCE Barretts esophagus REASON FOR UPCOMING PROCEDURE TO F/U ON CKD (chronic kidney disease), stage III PT NOT SURE DETAILS Dyslipidemia Glaucoma History of obstructive sleep apnea HX + SLEEP APNEA TEST, RE-TESTED AND WAS (-) Hypertension Murmur SOMETIMES DETECTED/FOLLOWS DR ZODA - ANNUAL ECHOCARDIOGRAMS Myocardial Infarction AGE 38 Osteoarthritis Osteopenia Type 2 diabetes mellitus Surgical History Hip fracture requiring operative repair right pinning and screws History of cardiac cath AGE 38 ...[place] /NO STENT(S) History of cataract surgery BOTH History of colonoscopy History of esophagogastroduodenoscopy (EGD) History of tubal ligation Family History Mother FHx: cancer Cancer Family/Other Asthma Brother Diabetes Brother Diabetes Denies family history of Ovarian cancer Prostate cancer Myocardial infarction Lung cancer Colorectal cancer Social History Smoking Status: Never smoker Second Hand Exposure: No; Hx Alcohol Use: No Hx Substance Use: No Preferred Language: Azeri Communication Ability: Effective Visual Impairment: Limited Hearing Ability: Normal Grade School Teacher Required: No Beliefs That Will Affect Care: None marital status: Current Living Situation: Spouse current occupational status: retired Feels Safe at Home: Yes Childhood Exposure to Second-Hand Smoke: Yes caffeine: Yes Dental Care, Regularly: Yes Physical Activity Frequency: 3-4 Times per Week Seatbelt Use: always Sunscreen Use: No Assistive Devices: Glasses Review of Systems Review of Systems: All systems reviewed & are unremarkable except as noted in HPI & below Physical Exam Physical Exam: General: patient resting comfortably, NAD, non-toxic in appearance, AA&O x 4 Skin: warm, dry, intact, no rashes or lesions HEENT: NC/AT, PERRL, EOMI, anicteric sclera, conjunctiva without injection, external ear normal to inspection and nontender, nares patent, moist mucus membranes, dentition intact, no oropharyngeal lesions, neck supple, trachea midline, no LAD, no thyromegaly, no JVD Heart: +S1/S2, regular, no m/r/g Lungs: diminished breath sounds, diffuse end-expiratory wheezing, crackles in bilateral bases Abd: +BS, soft, NT/ND, no masses/organomegaly/ascites Ext: warm, 2+ pulses in UE/LE bilaterally, no clubbing/cyanosis or edema Neuro: nonfocal, patient AA&O x 4, speech intact, no facial droop, moving all extremities on command with equal strength 5/5 Results & Data Results & Data ([facility]) Vital Signs (Past 12 Hours) Vital Signs Temp Pulse Pulse Resp BP BP Pulse Ox 03/25/22 19:28 84 22 182/96 H 96 03/25/22 18:50 88 22 165/89 H 95 03/25/22 18:32 90 32 H 168/87 H 93 03/25/22 17:29 94 03/25/22 17:18 87 L 03/25/22 16:58 39.1 C H 87 20 169/76 H 94 O2 Del Method O2 Flow Rate 03/25/22 19:28 Nasal Cannula 2 03/25/22 18:50 Nasal Cannula 2 03/25/22 18:32 Nasal Cannula 2 03/25/22 17:29 Nasal Cannula 2 03/25/22 17:18 Room Air 03/25/22 16:58 Room Air Laboratory Results Laboratory Results WBC 9.08 K/ul (4.8-10.8) 03/25/22 17:23 RBC 3.70 M/uL (3.93-5.22) L 03/25/22 17:23 Hgb 11.2 g/dl (12.0-16.0) L 03/25/22 17:23 Hct 33.1 % (34.1-44.9) L 03/25/22 17:23 MCV 89.5 fL (80.0-100.0) 03/25/22 17:23 MCH 30.3 pg (25.0-34.0) 03/25/22 17: MCHC 33.8 g/dL (32.0-36.0) 03/25/22 17: RDW Std Deviation 46.0 fL (36.4-46.3) 03/25/22 17: RDW Coeff of Aman 14.1 % (11.5-14.5) 03/25/22 17: Plt Count 197 K/uL (130-400) 03/25/22 17:23 MPV 11.2 fL (9.4-12.3) 03/25/22 17: Immature Gran % (Auto) 0.6 % 03/25/22 17: Neut % (Auto) 83.0 % 03/25/22 17: Lymph % (Auto) 12.1 % 03/25/22 17: [place] % (Auto) 4.0 % 03/25/22 17: Eos % (Auto) 0.1 % 03/25/22 17: Baso % (Auto) 0.2 % 03/25/22 17: Neut # (Auto) 7.54 K/uL (1.4-6.5) H 03/25/22: Lymph # (Auto) 1.10 K/uL (1.2-3.4) L 03/25/22 17: [place] # (Auto) 0.36 K/uL (0.24-0.82) 03/25/22 17: Eos # (Auto) 0.01 K/uL (0-0.50) 03/25/22: Baso # (Auto) 0.02 K/uL (0-0.2) 03/25/22: Immature Gran # (Auto) 0.05 K/uL (0.00-0.02) H 03/25/22: PT 11.4 Seconds (9.0-12.0) 03/25/22: INR 1.1 (0.9-1.1) 03/25/22: APTT 31.6 Seconds (21.0-31.0) H 03/25/22: PTT Ratio 1.1 03/25/22 17: Sodium 137 mmol/L (136-145) 03/25/22: Potassium 4.3 mmol/L (3.5-5.1) 03/25/22: Chloride 105 mmol/L (98-107) 03/25/22: Carbon Dioxide 21 mmol/L (21-32) 03/25/22: Anion Gap 11 (3-11) 03/25/22: BUN 21 mg/dl (6-23) 03/25/22: Creatinine 1.41 mg/dl (0.6-1.2) H 03/25/22: Est Cr Clr Drug Dosing Not Reportable 03/25/22: Est GFR ( Amer) 41.8 ml/min 03/25/22 Est GFR (Non-Af Amer) 36.1 ml/min 03/25/22 17: BUN/Creatinine Ratio 14.9 (10-20) 03/25/22 17: Glucose 188 mg/dl (70-99(Fasting)) H 03/25/22 17: Lactate 0.9 mmol/L (0.4-2.0) 03/25/22 18:18 Calcium 9.3 mg/dl (8.5-10.1) 03/25/22 17: Magnesium 1.2 mg/dl (1.7-2.4) L 03/25/22 17: Total Bilirubin 1.3 mg/dl (0.2-1.0) H 03/25/22: AST 17 U/L (13-39) 03/25/22: ALT 11 U/L (7-52) 03/25/22 17: Alkaline Phosphatase 58 U/L (34-104) 03/25/22 17: Troponin I High Sens 16.8 pg/ml (0-14) H 03/25/22 17: B-Natriuretic Peptide 985 pg/ml (0-100) H 03/25/22 18:18 Total Protein 7.6 gm/dl (6.0-8.3) 03/25/22 17: Albumin 4.2 gm/dl (3.4-5.0) 03/25/22 17: Globulin 3.4 gm/dl (2.5-4.0) 03/25/22 17: Albumin/Globulin Ratio 1.2 (0.9-2) 03/25/22: Procalcitonin < 0.05 ng/ml (0-0.5) 03/25/22 17: Adenovirus (PCR) Not Detected (NotDetected) 03/25/22 17: B. pertussis DNA (PCR) Not Detected (NotDetected) 03/25/22: B.parapertussis DNA PCR Not Detected (NotDetected) 03/25/22: C. pneumoniae DNA (PCR) Not Detected (NotDetected) 03/25/22 17: Coronavirus OC43 (PCR) Not Detected (NotDetected) 03/25/22: Coronavirus HKU1 (PCR) Not Detected (NotDetected) 03/25/22 17:26 Coronavirus 229E (PCR) Not Detected (NotDetected) 03/25/22 17:26 SARS-CoV-2 (PCR) Not Detected (NotDetected) 03/25/22 17:26 Coronavirus NL63 (PCR) Not Detected (NotDetected) 03/25/22 17:26 Human Metapneumovir PCR Not Detected (NotDetected) 03/25/22 17:26 Influenza Type A (PCR) Not Detected (NotDetected) 03/25/22 17:26 Influenza Type B (PCR) Not Detected (NotDetected) 03/25/22 17:26 M. pneumoniae (PCR) Not Detected (NotDetected) 03/25/22 17:26 Parainfluenza 1 (PCR) Not Detected (NotDetected) 03/25/22 17:26 Parainfluenza 2 (PCR) Not Detected (NotDetected) 03/25/22 17:26 Parainfluenza 3 (PCR) Not Detected (NotDetected) 03/25/22 17:26 Parainfluenza 4 (PCR) Not Detected (NotDetected) 03/25/22 17:26 RSV (PCR) DETECTED (NotDetected) A* 03/25/22 17:26 Entero/Rhino (PCR) Not Detected (NotDetected) 03/25/22 17:26 Impressions Chest X-Ray 03/25/22 17:00 XR chest 1V portable HISTORY: Dyspnea, fever COMPARISON: Chest 03/24/2022. FINDINGS: No pneumothorax. No pleural effusions. The heart remains enlarged. Interval progression of the perihilar interstitial/vascular thickening consistent with mild pulmonary edema. Hazy appearance of the right lung base likely represents the pulmonary edema. A developing pneumonia could also have a similar appearance. IMPRESSION: 1. Cardiomegaly with interval development of mild interstitial pulmonary edema. 2. Hazy appearance to the right lung base likely represents the pulmonary edema. A superimposed pneumonia could also a similar appearance. ACT 112: Negative or not required by law. Electronically signed by: Iain Wiggins M.D. 03/25/2022 5:30 PM Code Status & VTE Plan VTE Prophylaxis Plan VTE Prophylaxis will be ordered: Yes PG Care Time/CCT Total # of Minutes Spent Total Time Spent with Patient: Total time spent is greater than 50% in coordination of care (as documented) at patient's floor/unit and/or counseling patient: Coding Level of Care Code 84239 Initial Inpt Care Lvl 3 Diagnoses RSV bronchitis J20.5 Asthma exacerbation J45.901 Asthma persistence: unspecified Asthma severity: moderate Hypomagnesemia E83.42 CAD (coronary artery disease) I25.10 Coronary Disease-Associated Artery/Lesion type: unspecified vessel or lesion type [place] vs. transplanted heart: [place] heart Associated angina: without angina GERD (gastroesophageal reflux disease) K21.9 Esophagitis presence: esophagitis presence not specified Paroxysmal atrial fibrillation I48.0 Type 2 diabetes mellitus E11.22; N18.3 Diabetes mellitus group home insulin use: without group home use Diabetes mellitus complication status: with kidney complications Diabetes mellitus complication detail: with chronic kidney disease Chronic kidney disease stage: stage 3 (moderate) (1) Asthma exacerbation Asthma persistence: unspecified Asthma severity: moderate Qualified Code(s): J45.901 - Unspecified asthma with (acute) exacerbation (2) CAD (coronary artery disease) Coronary Disease-Associated Artery/Lesion type: unspecified vessel or lesion type [place] vs. transplanted heart: [place] heart Associated angina: without angina Qualified Code(s): I25.10 - Atherosclerotic heart disease of [place] coronary artery without angina pectoris (3) GERD (gastroesophageal reflux disease) Esophagitis presence: esophagitis presence not specified Qualified Code(s): K21.9 - Gastro-esophageal reflux disease without esophagitis (4) Type 2 diabetes mellitus Diabetes mellitus group home insulin use: without exterminator helper use Diabetes mellitus complication status: with kidney complications Diabetes mellitus complication detail: with chronic kidney disease Chronic kidney disease stage: stage 3 (moderate) Qualified Code(s): E11.22 - Type 2 diabetes mellitus with diabetic chronic kidney disease; N18.3 - Chronic kidney disease, stage 3 (moderate)
[2022-03-25] MEDS ORDERED: GLUCAGON FOR INJ 1 MG VIAL SQ PRN (22:25)
[2022-03-25] MEDS ORDERED: ACETAMINOPHEN 325 MG TAB PO PRN (22:25)
[2022-03-25] MEDS ORDERED: GLUCOSE 40% GEL 15 GM TUBE PO PRN (22:25)
[2022-03-25] MEDS ORDERED: ALBUTEROL 0.5% NEB SOLN 2.5 MG/0.5 ML VIAL NEB PRN (22:25)
[2022-03-25] MEDS ORDERED: CARBOHYDRATES FOR HYPOGLYCEMIA PO PRN (22:25)
[2022-03-25] MEDS ORDERED: ONDANSETRON INJ 2 MG/ML 2 ML VIAL IV PRN (22:25)
[2022-03-25] MEDS ORDERED: DEXTROSE 50% 50 ML SYRINGE IV PRN (22:25)
[2022-03-25] MEDS ORDERED: GLUCOSE 10 TAB/TUBE PO PRN (22:25)
[2022-03-25] MEDS ORDERED: FUROSEMIDE 40 MG/4 ML VIAL IV ONE (22:25)
[2022-03-25] MEDS ORDERED: ALBUT/IPRATROP 3MG/0.5MG NEB 3 ML VIAL NEB SCH (23:00)
[2022-03-25] MEDS: DORZOLAMIDE HCL 2% OPH SOLN 10 ML BTL OP SCH (23:24)
[2022-03-25] MEDS: BRIMONIDINE TARTRATE-P 0.15% 5 ML BTL OPB SCH (23:24)
[2022-03-25] MEDS: PANTOprazole 40 MG TAB PO SCH (23:24)
[2022-03-25] MEDS: FLUTICASONE/VILANTEROL 200/25MCG 14 PUFFS/INHALER INH SCH ×2 (23:25→23:26)
[2022-03-25] MEDS: methylPREDNISolone 40 MG in SYRINGE 0 ML IV SCH (23:30)
[2022-03-25] MEDS: LANTUS PER UNIT CHARGE SQ SCH (23:43)
[2022-03-25] MEDS: INSULIN ASPART PER UNIT SC SCH (23:44)
[2022-03-26] MEDS: ENOXAPARIN INJ 40 MG/0.4 ML SYR SQ SCH ×2 (01:25→21:40)
[2022-03-26] MEDS: MAGNESIUM SULFATE / D5W 1 GM/100 ML BAG IV SCH (01:53)
[2022-03-26] MEDS: methylPREDNISolone 40 MG in SYRINGE 0 ML IV SCH ×3 (06:41→22:14)
[2022-03-26 06:56] LABS: Hematocrit (blood only) 31.7 % (34.1-44.9); Hemoglobin 10.5 g/dl (12.0-16.0); Mean Corpuscular Hemoglobin 29.8 pg (25.0-34.0); Mean Corpuscular Hgb Conc 33.1 g/dL (32.0-36.0); Mean Corpuscular Volume 90.1 fL (80.0-100.0); Mean Platelet Volume 11.2 fL (9.4-12.3); Platelet Count 160 K/uL (130-400); RDW Coefficient of Variation 13.7 % (11.5-14.5); Red Blood Count 3.52 M/uL (3.93-5.22); White Blood Count 4.81 K/ul (4.8-10.8)
[2022-03-26] MEDS: ALBUT/IPRATROP 3MG/0.5MG NEB 3 ML VIAL NEB SCH ×4 (07:31→18:10)
[2022-03-26 07:36] LABS: BUN Creatinine Ratio 17.4 (10-20); Calcium 8.9 mg/dl (8.5-10.1); Creatinine Clr Calc Pharmacy 32.4 ml/min; Est GFR (African American) 35.6 ml/min; Est GFR (Non-African American) 30.7 ml/min; Magnesium 2.4 mg/dl (1.7-2.4); Potassium 4.2 mmol/L (3.5-5.1)
[2022-03-26] MEDS: ATORVASTATIN 20 MG TAB PO SCH (08:51)
[2022-03-26] MEDS: OLMESARTAN MEDOXOMIL 20 MG TAB PO SCH (08:51)
[2022-03-26] MEDS: amLODIPine BESYLATE 5 MG TAB PO SCH (08:52)
[2022-03-26] MEDS: BRIMONIDINE TARTRATE-P 0.15% 5 ML BTL OPB SCH ×2 (08:52→21:38)
[2022-03-26] MEDS: INSULIN ASPART PER UNIT SC SCH ×4 (08:53→22:09)
[2022-03-26] MEDS: DORZOLAMIDE HCL 2% OPH SOLN 10 ML BTL OP SCH ×2 (08:53→21:37)
[2022-03-26] MEDS: LANTUS PER UNIT CHARGE SQ SCH ×2 (08:53→22:10)
--- NOTE | 2022-03-26 09:29 | Electrocardiogram Report ---
Test Reason : Blood Pressure : / mmHG Vent. Rate : 090 BPM Atrial Rate : 090 BPM P-R Int : 180 ms QRS Dur : 158 ms QT Int : 416 ms P-R-T Axes : 080 -43 122 degrees QTc Int : 508 ms Normal sinus rhythm Left axis deviation Left bundle branch block Abnormal ECG When compared with ECG of 02-JAN-2021 15:28, Premature supraventricular complexes are no longer Present T wave inversion less evident in Lateral leads Confirmed by Ajay Baker ([id number]) on 03/26/2022 9:28:55 AM Referred By: REFERRED SELF Confirmed By:Ajay Baker
[2022-03-26] MEDS ORDERED: COUGH DROP (SUGAR FREE) LOZ 24 LOZ/1 BOX BUCCAL PRN (12:54)
--- NOTE | 2022-03-26 12:54 | Hospitalist Progress Note ---
Date of Service March 26, 2022 Assessment & Plan (1) RSV bronchitis: Plan: 77yo female with history of asthma presenting with 3 days of cough, wheeze and BLAIR. Patient febrile on arrival, hypoxic to 87% on room air which improved with supplemental NC 2L. Patient found to have RSV on BioFire panel most likely contributing to asthma exacerbation as well. Do not suspect concomitant bacterial PNA based on normal WBC and negative procalcitonin. CXR with pulm edema and possible right sided PNA Blood cultures NGTD Fevers improved -with mild sore throat-ordered throat lozenges -Maintain droplet precautions -Supportive care and treatment of asthma as below (2) Acute respiratory failure with hypoxia: Plan: 2/2 RSV with pulm edema from acute on chronic HFrEF and PNA as above now weaned off supplemental O2, improved continue to treat asthma as below no further lasix needed (3) Asthma exacerbation: Plan: Patient with diffuse end-expiratory wheezing. Suspect asthma exacerbation in setting of RSV bronchitis. Improved but wheezing remains -continue Solumedrol 40mg IV TID -continue DuoNeb q 6 hour -Albuterol q 2 hours PRN -Magnesium given -Continue Fluticasone/Vilanterol -continue flutter valve, ICS (4) Type 2 diabetes mellitus: Plan: Patient with well controlled DM, last RqbW2S=2.2 on 11/06/21 -Hold home medications, Sitagliptin-Metformin With hyperglycemia here 2/2 steroids -increase Lantus to 10u BID -tighten down Novolog CF and CR -Goal blood sugar 110 - 140 (5) CKD (chronic kidney disease), stage III: Plan: voucher clerk around baseline at 1.6 -Avoid nephrotoxins -renally dose meds when appropriate -follow BMP (6) Hypomagnesemia: Plan: Hypomagnesemia with Mg=1.3 on admission replaced and now normal (7) CAD (coronary artery disease): Plan: Chronic. Patient denies chest pain. She follows with Dr. Menendez, last seen October 2021. Most recent echo from October 2021 with moderate LV systolic dysfunction and akinesis of the LV apex and distal inferior segment -Continue Atorvastatin -Continue Amlodipine-Olmesartan (8) GERD (gastroesophageal reflux disease): Plan: Chronic, with Casper's. Stable on medications -Continue Protonix 40mg po daily (9) Paroxysmal atrial fibrillation: Plan: Patient presently in NSR. On Bystolic at home Has a h/o lone Afib while hospitalized for COVID in 2020 -add on Metoprolol 12.5mg po BID -Not on anticoagulation (10) Anemia: Plan: mild, stable at 10 follows with Hematology (11) HFrEF (heart failure with reduced ejection fraction): Plan: as above, EF 35-40% with acute on chronic HFrEF, required IV lasix here and had good diuresis with pulm edema on CXR now weaned off O2 improved monitor volume status give prn torsemide as per home dose Plan DVT proph-Lovenox SQ Dispo-continued stay Admission and Anticipated Discharge Date Admission Date: March 25, 2022 Subjective Pt feeling so much better today, is weaned off O2 to room air. Has some cough after using flutter valve and starting to get a dry scratchy throat today. No nausea, no diarrhea, is eating well, no SOB and is ambulating in the room. Still with wheezing. Review of Systems Review of Systems: All systems reviewed & are unremarkable except as noted in HPI & below Physical Exam Constitutional: WD/WN, vitals as above Eyes: + anicteric sclerae ENMT: external ear and nose normal, oropharynx normal Neck: trachea midline, no thyromegaly Respiratory: normal respiratory effort; no cough Auscultation: + wheezes (diffuse expiratory wheezes); no crackles, no rales and no rhonchi Cardiovascular: RRR, no murmur, no edema Chest (Breasts): Chest: normal inspection of chest Gastrointestinal (Abdomen): normal bowel sounds, soft, nontender, no hepatosplenomegaly Musculoskeletal: Extremities: extremities normal to inspection; no cyanosis and no clubbing Skin: no rashes, warm and dry Neurologic: moves all extremities and awake; no focal motor deficits Psychiatric: A+Ox3, euthymic affect Lymphatic: no lymphedema Results & Data Results & Data ([facility]) Vital Signs (Past 12 Hours) Vital Signs Temp Pulse Resp BP Pulse Ox O2 Del Method O2 Flow Rate 03/26/22 08:48 Room Air 03/26/22 10:45 67 15 95 Nasal Cannula 3 03/26/22 07:56 36.5 C 70 17 152/75 H 96 Room Air 03/26/22 07:33 71 14 91 Nasal Cannula 3 Laboratory Results 03/26/22 06:30 03/26/22 06:30 PG Care Time/CCT Total # of Minutes Spent Total Time Spent with Patient: Total time spent is greater than 50% in coordination of care (as documented) at patient's floor/unit and/or counseling patient: Coding Level of Care Code 43296 Subseq Hosp Care Lvl 2 Diagnoses RSV bronchitis J20.5 Acute respiratory failure with hypoxia J96.01 Asthma exacerbation J45.901 Asthma persistence: unspecified Asthma severity: moderate Type 2 diabetes mellitus E11.22; N18.3 Diabetes mellitus long-term insulin use: without long-term use Diabetes mellitus complication status: with kidney complications Diabetes mellitus complication detail: with chronic kidney disease Chronic kidney disease stage: stage 3 (moderate) CKD (chronic kidney disease), stage III N18.3 Hypomagnesemia E83.42 CAD (coronary artery disease) I25.10 Coronary Disease-Associated Artery/Lesion type: unspecified vessel or lesion type [place] vs. transplanted heart: [place] heart Associated angina: without angina GERD (gastroesophageal reflux disease) K21.9 Esophagitis presence: esophagitis presence not specified Paroxysmal atrial fibrillation I48.0 Anemia D64.9 HFrEF (heart failure with reduced ejection fraction) I50.20 (1) Asthma exacerbation Asthma persistence: unspecified Asthma severity: moderate Qualified Code(s): J45.901 - Unspecified asthma with (acute) exacerbation (2) CAD (coronary artery disease) Coronary Disease-Associated Artery/Lesion type: unspecified vessel or lesion type [place] vs. transplanted heart: [place] heart Associated angina: without angina Qualified Code(s): I25.10 - Atherosclerotic heart disease of [place] coronary artery without angina pectoris (3) GERD (gastroesophageal reflux disease) Esophagitis presence: esophagitis presence not specified Qualified Code(s): K21.9 - Gastro-esophageal reflux disease without esophagitis (4) Type 2 diabetes mellitus Diabetes mellitus long-term insulin use: without long-term use Diabetes mellitus complication status: with kidney complications Diabetes mellitus complication detail: with chronic kidney disease Chronic kidney disease stage: stage 3 (moderate) Qualified Code(s): E11.22 - Type 2 diabetes mellitus with diabetic chronic kidney disease; N18.3 - Chronic kidney disease, stage 3 (moderate)
[2022-03-26] MEDS: METOPROLOL TARTRATE 25 MG TAB PO SCH ×2 (15:45→21:41)
[2022-03-26] MEDS ORDERED: METOPROLOL TARTRATE 25 MG TAB PO SCH (21:00)
[2022-03-26] MEDS: FLUTICASONE/VILANTEROL 200/25MCG 14 PUFFS/INHALER INH SCH (21:40)
[2022-03-26] MEDS: PANTOprazole 40 MG TAB PO SCH (21:42)
[2022-03-27 06:53] LABS: Creatinine Clr Calc Pharmacy 26.6 ml/min; Est GFR (African American) 28.1 ml/min; Est GFR (Non-African American) 24.2 ml/min; Magnesium 2.1 mg/dl (1.7-2.4); Potassium 3.8 mmol/L (3.5-5.1)
[2022-03-27] MEDS: ALBUT/IPRATROP 3MG/0.5MG NEB 3 ML VIAL NEB SCH ×4 (06:56→19:47)
[2022-03-27] MEDS: methylPREDNISolone 40 MG in SYRINGE 0 ML IV SCH ×2 (07:15→15:45)
[2022-03-27] MEDS: amLODIPine BESYLATE 5 MG TAB PO SCH (07:56)
[2022-03-27] MEDS: DORZOLAMIDE HCL 2% OPH SOLN 10 ML BTL OP SCH ×2 (07:56→20:36)
[2022-03-27] MEDS: ATORVASTATIN 20 MG TAB PO SCH (07:56)
[2022-03-27] MEDS: OLMESARTAN MEDOXOMIL 20 MG TAB PO SCH (07:56)
[2022-03-27] MEDS: METOPROLOL TARTRATE 25 MG TAB PO SCH ×2 (07:56→21:23)
[2022-03-27] MEDS: BRIMONIDINE TARTRATE-P 0.15% 5 ML BTL OPB SCH ×2 (07:57→20:36)
[2022-03-27] MEDS: INSULIN ASPART PER UNIT SC SCH ×4 (08:55→20:35)
[2022-03-27] MEDS: LANTUS PER UNIT CHARGE SQ SCH ×2 (08:56→20:35)
--- NOTE | 2022-03-27 17:48 | Hospitalist Progress Note ---
Date of Service March 27, 2022 Assessment & Plan (1) RSV bronchitis: Plan: 77yo female with history of asthma presenting with 3 days of cough, wheeze and BLAIR. Patient febrile on arrival, hypoxic to 87% on room air which improved with supplemental NC 2L. Patient found to have RSV on [employer] panel most likely contributing to asthma exacerbation as well. Do not suspect concomitant bacterial PNA based on normal WBC and negative procalcitonin. CXR with pulm edema and possible right sided PNA Blood cultures NGTD Fevers, dyspnea and wheezing are significantly improved -with mild sore throat-ordered throat lozenges -Maintain droplet precautions -Supportive care and treatment of asthma as below (2) Acute respiratory failure with hypoxia: Plan: 2/2 RSV with pulm edema from acute on chronic HFrEF and viral PNA as above now weaned off supplemental O2, improved continue to treat asthma as below no further lasix needed (3) Asthma exacerbation: Plan: Patient with diffuse end-expiratory wheezing. Suspect asthma exacerbation in setting of RSV bronchitis. Now significantly improved with treatment with IV steroids and scheduled bronchodilator nebulizer treatments -continue Solumedrol 40mg IV TID through the end of today and then changed to prednisone 40 Mg p.o. 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 and creatinine now up to 1.96 BUN elevated also at 47 but this is likely secondary to steroid use Creatinine most likely elevated after receiving IV Lasix on admission x1 No further diuretics being given at this time -Hold home olmesartan in the morning -No IV fluids to be given at this time given her issues with heart failure, but she is orally hydrated -Avoid nephrotoxins -renally dose meds when appropriate -follow BMP in the morning (5) Type 2 diabetes mellitus: Plan: Patient with well controlled DM, last YbqX5S=8.2 on 11/06/21 -Hold home medications, Sitagliptin-Metformin With hyperglycemia here 2/2 steroids now much improved with increased doses of insulin -Continue Lantus 10u BID -Continue supplemental NovoLog -Goal blood sugar 110 - 140 (6) Hypomagnesemia: Plan: Hypomagnesemia with Mg=1.3 on admission replaced and now normal (7) CAD (coronary artery disease): Plan: Chronic. Patient denies chest pain. She follows with Dr. Menendez, last seen October 2021. Most recent echo from October 2021 with moderate LV systolic dysfunction and akinesis of the LV apex and distal inferior segment -Continue Atorvastatin -Continue Amlodipine, but now holding olmesartan Continue metoprolol in place of Bystolic (8) GERD (gastroesophageal reflux disease): Plan: Chronic, with Casper's. Stable on medications -Continue Protonix 40mg po daily (9) Paroxysmal atrial fibrillation: Plan: Patient presently in NSR. On Bystolic at home Has a h/o lone Afib while hospitalized for COVID in 2020 -Continue metoprolol 12.5mg po BID while hospitalized and then return to home Bystolic upon discharge -Not on anticoagulation presumably due to having lone A. fib (10) Anemia: Plan: mild, stable at 10 follows with Hematology (11) HFrEF (heart failure with reduced ejection fraction): Plan: as above, EF 35-40% with acute on chronic HFrEF, required IV lasix here and had good diuresis with pulm edema on CXR now weaned off O2 improved monitor volume status give prn torsemide as per home dose Plan DVT proph-Lovenox SQ Dispo-continued stay due to acute kidney injury, but overall asthma exacerbation is much improved. As long as renal function stable or improved by 03/28, could discharge to home at that time to finish out a prednisone burst and continued albuterol HFA Admission and Anticipated Discharge Date Admission Date: March 25, 2022 Subjective Patient feeling much improved today with her breathing. She is ambulating around the room without shortness of breath. Still has an occasional mild cough. Nonproductive cough. Denies chest pains, still no bowel movement. Is eating and drinking. Making urine. Review of Systems Review of Systems: All systems reviewed & are unremarkable except as noted in HPI & below Physical Exam Constitutional: WD/WN, vitals as above Eyes: + anicteric sclerae Neck: trachea midline, no thyromegaly Respiratory: normal respiratory effort; no cough Auscultation: + wheezes (Only occasional on the right side, much improved from previous); no crackles, no rales and no rhonchi Cardiovascular: RRR, no murmur, no edema Chest (Breasts): Chest: normal inspection of chest Gastrointestinal (Abdomen): normal bowel sounds, soft, nontender, no h epatosplenomegaly Musculoskeletal: Extremities: extremities normal to inspection; no cyanosis and no clubbing Skin: no rashes, warm and dry Neurologic: moves all extremities and awake; no focal motor deficits Psychiatric: A+Ox3, euthymic affect Lymphatic: no lymphedema Results & Data Results & Data ([facility]) Vital Signs (Past 12 Hours) Vital Signs Temp Pulse Resp BP Pulse Ox O2 Del Method 03/27/22 15:14 36.4 C L 72 18 144/79 H 100 Room Air 03/27/22 14:38 67 17 97 Room Air 03/27/22 10:44 80 18 95 Room Air 03/27/22 07:54 Room Air 03/27/22 07:38 36.5 C 85 18 140/79 93 Room Air 03/27/22 06:57 81 18 96 Room Air Laboratory Results 03/27/22 03/27/22 03/27/22 Range/Units 20:26 17:19 12:15 Sodium (136-145) mmol/L Potassium (3.5-5.1) mmol/L Chloride (98-107) mmol/L Carbon Dioxide (21-32) mmol/L Anion Gap (3-11) BUN (6-23) mg/dl Creatinine (0.6-1.2) mg/dl Est Cr Clr Drug Dosing ml/min Est GFR ( Amer) ml/min Est GFR (Non-Af Amer) ml/min BUN/Creatinine Ratio (10-20) Glucose (70-99(Fasting)) mg/dl POC Glucose 155 H 104 H 223 H (70-99) mg/dl Calcium (8.5-10.1) mg/dl Magnesium (1.7-2.4) mg/dl 03/27/22 03/27/22 Range/Units 08:19 06:06 Sodium 139 (136-145) mmol/L Potassium 3.8 (3.5-5.1) mmol/L Chloride 104 (98-107) mmol/L Carbon Dioxide 23 (21-32) mmol/L Anion Gap 12 H (3-11) BUN 47 H (6-23) mg/dl Creatinine 1.96 H D (0.6-1.2) mg/dl Est Cr Clr Drug Dosing 26.6 ml/min Est GFR ( Amer) 28.1 ml/min Est GFR (Non-Af Amer) 24.2 ml/min BUN/Creatinine Ratio 24.0 H (10-20) Glucose 205 H (70-99(Fasting)) mg/dl POC Glucose 207 H (70-99) mg/dl Calcium 9.0 (8.5-10.1) mg/dl Magnesium 2.1 (1.7-2.4) mg/dl PG Care Time/CCT Total # of Minutes Spent Total Time Spent with Patient: Total time spent is greater than 50% in coordination of care (as documented) at patient's floor/unit and/or counseling patient: Coding Level of Care Code 28506 Subseq Hosp Care Lvl 2 Diagnoses RSV bronchitis J20.5 Acute respiratory failure with hypoxia J96.01 Asthma exacerbation J45.901 Asthma persistence: unspecified Asthma severity: moderate CKD (chronic kidney disease), stage III N18.3 Type 2 diabetes mellitus E11.22; N18.3 Chronic kidney disease stage: stage 3 (moderate) Diabetes mellitus complication detail: with chronic kidney disease Diabetes mellitus complication status: with kidney complications Diabetes mellitus watermelon inspector insulin use: without penitentiary use Hypomagnesemia E83.42 CAD (coronary artery disease) I25.10 Associated angina: without angina Coronary Disease-Associated Artery/Lesion type: unspecified vessel or lesion type [place] vs. transplanted heart: [place] heart GERD (gastroesophageal reflux disease) K21.9 Esophagitis presence: esophagitis presence not specified Paroxysmal atrial fibrillation I48.0 Anemia D64.9 HFrEF (heart failure with reduced ejection fraction) I50.20 (1) Asthma exacerbation Asthma persistence: unspecified Asthma severity: moderate Qualified Code(s): J45.901 - Unspecified asthma with (acute) exacerbation (2) Type 2 diabetes mellitus Chronic kidney disease stage: stage 3 (moderate) Diabetes mellitus complication detail: with chronic kidney disease Diabetes mellitus complication status: with kidney complications Diabetes mellitus watermelon inspector insulin use: without penitentiary use Qualified Code(s): E11.22 - Type 2 diabetes mellitus with diabetic chronic kidney disease; N18.3 - Chronic kidney disease, stage 3 (moderate) (3) CAD (coronary artery disease) Associated angina: without angina Coronary Disease-Associated Artery/Lesion type: unspecified vessel or lesion type [place] vs. transplanted heart: [place] heart Qualified Code(s): I25.10 - Atherosclerotic heart disease of [place] coronary artery without angina pectoris (4) GERD (gastroesophageal reflux disease) Esophagitis presence: esophagitis presence not specified Qualified Code(s): K21.9 - Gastro-esophageal reflux disease without esophagitis
[2022-03-27] MEDS: FLUTICASONE/VILANTEROL 200/25MCG 14 PUFFS/INHALER INH SCH (20:35)
[2022-03-27] MEDS: ENOXAPARIN INJ 40 MG/0.4 ML SYR SQ SCH (21:22)
[2022-03-27] MEDS: PANTOprazole 40 MG TAB PO SCH (21:23)
[2022-03-28] MEDS: methylPREDNISolone 40 MG in SYRINGE 0 ML IV SCH (01:20)
[2022-03-28] MEDS: ALBUT/IPRATROP 3MG/0.5MG NEB 3 ML VIAL NEB SCH ×4 (07:10→19:19)
[2022-03-28 07:28] LABS: Basophils # (auto) 0.02 K/uL (0-0.2); Basophils % (auto) 0.1 %; Hematocrit (blood only) 34.7 % (34.1-44.9); Hemoglobin 11.6 g/dl (12.0-16.0); Immature Granulocytes # (auto) 0.17 K/uL (0.00-0.02); Immature Granulocytes % (auto) 0.9 %; Lymphocytes # (auto) 1.45 K/uL (1.2-3.4); Mean Corpuscular Hemoglobin 30.1 pg (25.0-34.0); Mean Corpuscular Hgb Conc 33.4 g/dL (32.0-36.0); Mean Corpuscular Volume 90.1 fL (80.0-100.0); Monocytes # (auto) 0.86 K/uL (0.24-0.82); Monocytes % (auto) 4.7 %; Neutrophils # (auto) 15.68 K/uL (1.4-6.5); Neutrophils % (auto) 86.3 %; Platelet Count 209 K/uL (130-400); RDW Coefficient of Variation 13.8 % (11.5-14.5); RDW Standard Deviation 45.4 fL (36.4-46.3); Red Blood Count 3.85 M/uL (3.93-5.22); White Blood Count 18.18 K/ul (4.8-10.8)
[2022-03-28 07:50] LABS: BUN Creatinine Ratio 27.1 (10-20); Calcium 9.2 mg/dl (8.5-10.1); Creatinine Clr Calc Pharmacy 24.3 ml/min; Est GFR (African American) 25.3 ml/min; Est GFR (Non-African American) 21.8 ml/min; Magnesium 2.2 mg/dl (1.7-2.4); Potassium 4.2 mmol/L (3.5-5.1)
[2022-03-28] MEDS: METOPROLOL TARTRATE 25 MG TAB PO SCH ×2 (07:51→21:06)
[2022-03-28] MEDS: DORZOLAMIDE HCL 2% OPH SOLN 10 ML BTL OP SCH ×2 (07:51→21:03)
[2022-03-28] MEDS: predniSONE 20 MG TAB PO SCH (07:51)
[2022-03-28] MEDS: BRIMONIDINE TARTRATE-P 0.15% 5 ML BTL OPB SCH ×2 (07:52→21:03)
[2022-03-28] MEDS: LANTUS PER UNIT CHARGE SQ SCH ×2 (09:09→21:01)
[2022-03-28] MEDS: INSULIN ASPART PER UNIT SC SCH ×4 (09:09→20:59)
[2022-03-28] MEDS: ATORVASTATIN 20 MG TAB PO SCH (09:41)
[2022-03-28] MEDS: amLODIPine BESYLATE 5 MG TAB PO SCH (09:41)
[2022-03-28] MEDS ORDERED: SODIUM CHLORIDE 0.9% 500 ML IV SCH (14:30)
--- NOTE | 2022-03-28 17:48 | Hospitalist Progress Note ---
Date of Service March 28, 2022 Assessment & Plan (1) RSV bronchitis: Plan: 77yo female with history of asthma presenting with 3 days of cough, wheeze and BLAIR. Patient febrile on arrival, hypoxic to 87% on room air which improved with supplemental NC 2L. Patient found to have RSV on [employer] panel most likely contributing to asthma exacerbation as well. Do not suspect concomitant bacterial PNA based on normal WBC and negative procalcitonin. CXR with pulm edema and possible right sided PNA Blood cultures NGTD Fevers, dyspnea and wheezing are significantly improved -with mild sore throat-ordered throat lozenges -Maintain droplet precautions -Supportive care and treatment of asthma as below (2) Acute respiratory failure with hypoxia: Plan: / RSV with pulm edema from acute on chronic HFrEF and viral PNA as above now weaned off supplemental O2, improved continue to treat asthma as below no further lasix needed (3) Asthma exacerbation: Plan: Patient with diffuse end-expiratory wheezing. Suspect asthma exacerbation in setting of RSV bronchitis. Now significantly improved with treatment with IV steroids and scheduled bronchodilator nebulizer treatments -continue Solumedrol 40mg IV TID through the end of today and then changed to prednisone 40 Mg p.o. 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 will give IVF (5) Type 2 diabetes mellitus: Plan: Patient with well controlled DM, last AfuM3P=8.2 on 11/06/21 -Hold home medications, Sitagliptin-Metformin With hyperglycemia here 2/2 steroids now much improved with increased doses of insulin -Continue Lantus 10u BID -Continue supplemental NovoLog -Goal blood sugar 110 - 140 (6) Hypomagnesemia: Plan: Hypomagnesemia with Mg=1.3 on admission replaced and now normal (7) CAD (coronary artery disease): Plan: Chronic. Patient denies chest pain. She follows with Dr. Menendez, last seen October 2021. Most recent echo from October 2021 with moderate LV systolic dysfunction and akinesis of the LV apex and distal inferior segment -Continue Atorvastatin -Continue Amlodipine, but now holding olmesartan Continue metoprolol in place of Bystolic (8) GERD (gastroesophageal reflux disease): Plan: Chronic, with Casper's. Stable on medications -Continue Protonix 40mg po daily (9) Paroxysmal atrial fibrillation: Plan: Patient presently in NSR. On Bystolic at home Has a h/o lone Afib while hospitalized for COVID in 2020 -Continue metoprolol 12.5mg po BID while hospitalized and then return to home Bystolic upon discharge -Not on anticoagulation presumably due to having lone A. fib (10) Anemia: Plan: mild, stable at 10 follows with Hematology (11) HFrEF (heart failure with reduced ejection fraction): Plan: as above, EF 35-40% with acute on chronic HFrEF, required IV lasix here and had good diuresis with pulm edema on CXR now weaned off O2 improved monitor volume status give prn torsemide as per home dose Plan DVT proph-Lovenox SQ Dispo-continued stay due to acute kidney injury, but overall asthma exacerbation is much improved. As long as renal function stable or improved by 03/28, could discharge to home at that time to finish out a prednisone burst and continued albuterol HFA Admission and Anticipated Discharge Date Admission Date: March 25, 2022 Subjective Patient reports feeling well. No complaints of SOB. Review of Systems Review of Systems: All systems reviewed & are unremarkable except as noted in HPI & below Physical Exam Physical Exam: Constitutional: WD/WN, vitals as above Eyes: + anicteric sclerae Neck: trachea midline, no thyromegaly Respiratory: normal respiratory effort; no cough Auscultation: + wheezes (Only occasional on the right side, much improved from previous); no crackles, no rales and no rhonchi Cardiovascular: RRR, no murmur, no edema Chest (Breasts): Chest: normal inspection of chest Gastrointestinal (Abdomen): normal bowel sounds, soft, nontender, no hepatosplenomegaly Musculoskeletal: Extremities: extremities normal to inspection; no cyanosis and no clubbing Skin: no rashes, warm and dry Neurologic: moves all extremities and awake; no focal motor deficits Psychiatric: A+Ox3, euthymic affect Lymphatic: no lymphedema Results & Data Results & Data ([facility]) Vital Signs (Past 12 Hours) Vital Signs Temp Pulse Pulse Resp BP Pulse Ox O2 Del Method 03/28/22 15:29 36.4 C L 65 18 158/82 H 99 Room Air 03/28/22 15:11 72 18 95 Room Air 03/28/22 11:08 73 18 95 Room Air 03/28/22 07:50 Room Air 03/28/22 07:40 36.5 C 71 18 139/76 94 Room Air 03/28/22 07:10 75 17 96 Room Air PG Care Time/CCT Total # of Minutes Spent Total Time Spent with Patient: Total time spent is greater than 50% in coordination of care (as documented) at patient's floor/unit and/or counseling patient: Coding Level of Care Code 35606 Subseq Hosp Care Lvl 3 Diagnoses RSV bronchitis J20.5 Acute respiratory failure with hypoxia J96.01 Asthma exacerbation J45.901 Asthma persistence: unspecified Asthma severity: moderate CKD (chronic kidney disease), stage III N18.3 Type 2 diabetes mellitus E11.22; N18.3 Chronic kidney disease stage: stage 3 (moderate) Diabetes mellitus complication detail: with chronic kidney disease Diabetes mellitus complication status: with kidney complications Diabetes mellitus half-way insulin use: without half-way use Hypomagnesemia E83.42 CAD (coronary artery disease) I25.10 Associated angina: without angina Coronary Disease-Associated Artery/Lesion type: unspecified vessel or lesion type [place] vs. transplanted heart: [place] heart GERD (gastroesophageal reflux disease) K21.9 Esophagitis presence: esophagitis presence not specified Paroxysmal atrial fibrillation I48.0 Anemia D64.9 HFrEF (heart failure with reduced ejection fraction) I50.20 Time Spent (min) 35 (1) Asthma exacerbation Asthma persistence: unspecified Asthma severity: moderate Qualified Code(s): J45.901 - Unspecified asthma with (acute) exacerbation (2) Type 2 diabetes mellitus Chronic kidney disease stage: stage 3 (moderate) Diabetes mellitus complication detail: with chronic kidney disease Diabetes mellitus complication status: with kidney complications Diabetes mellitus terminologist insulin use: without terminologist use Qualified Code(s): E11.22 - Type 2 diabetes mellitus with diabetic chronic kidney disease; N18.3 - Chronic kidney disease, stage 3 (moderate) (3) CAD (coronary artery disease) Associated angina: without angina Coronary Disease-Associated Artery/Lesion type: unspecified vessel or lesion type [place] vs. transplanted heart: [place] heart Qualified Code(s): I25.10 - Atherosclerotic heart disease of [place] coronary artery without angina pectoris (4) GERD (gastroesophageal reflux disease) Esophagitis presence: esophagitis presence not specified Qualified Code(s): K21.9 - Gastro-esophageal reflux disease without esophagitis
[2022-03-28] MEDS ORDERED: ENOXAPARIN INJ 30 MG/0.3 ML SYR SQ SCH (21:00)
[2022-03-28] MEDS: FLUTICASONE/VILANTEROL 200/25MCG 14 PUFFS/INHALER INH SCH (21:05)
[2022-03-28] MEDS: PANTOprazole 40 MG TAB PO SCH (21:07)
[2022-03-29 06:18] LABS: Hematocrit (blood only) 32.5 % (34.1-44.9); Hemoglobin 10.9 g/dl (12.0-16.0); Mean Corpuscular Hemoglobin 30.4 pg (25.0-34.0); Mean Corpuscular Hgb Conc 33.5 g/dL (32.0-36.0); Mean Corpuscular Volume 90.5 fL (80.0-100.0); Platelet Count 200 K/uL (130-400); RDW Coefficient of Variation 13.7 % (11.5-14.5); RDW Standard Deviation 45.3 fL (36.4-46.3); Red Blood Count 3.59 M/uL (3.93-5.22); White Blood Count 12.06 K/ul (4.8-10.8)
[2022-03-29 06:45] LABS: C Reactive Protein 1.88 mg/dl (0-0.5); Creatinine Clr Calc Pharmacy 25.2 ml/min; Est GFR (African American) 26.3 ml/min; Est GFR (Non-African American) 22.7 ml/min; Potassium 3.8 mmol/L (3.5-5.1)
[2022-03-29] MEDS: ALBUT/IPRATROP 3MG/0.5MG NEB 3 ML VIAL NEB SCH ×3 (06:59→14:34)
[2022-03-29] MEDS: DORZOLAMIDE HCL 2% OPH SOLN 10 ML BTL OP SCH (07:51)
[2022-03-29] MEDS: predniSONE 20 MG TAB PO SCH (07:52)
[2022-03-29] MEDS: BRIMONIDINE TARTRATE-P 0.15% 5 ML BTL OPB SCH (07:52)
[2022-03-29] MEDS: amLODIPine BESYLATE 5 MG TAB PO SCH (07:52)
[2022-03-29] MEDS: ATORVASTATIN 20 MG TAB PO SCH (07:52)
[2022-03-29] MEDS: METOPROLOL TARTRATE 25 MG TAB PO SCH (07:52)
[2022-03-29] MEDS: LANTUS PER UNIT CHARGE SQ SCH (09:28)
[2022-03-29] MEDS: INSULIN ASPART PER UNIT SC SCH ×2 (09:28→13:05)
[2022-03-29 10:12] LABS: Appearance Urine Clear (Clear); Bacteria Urine Automated Negative (Negative); Bilirubin Urine Negative (Negative); Blood Urine Negative (Negative); Color Urine Yellow; Epithelial Cell Urine Auto 0-5 /lpf (0-5); Glucose Urine UA Negative (Negative); Ketones Urine Negative (Negative); Leukocyte Esterase Urine 1+ (Negative); Nitrite Urine Negative (Negative); Protein Urine Negative (Negative); RBC Urine Automated 0-4 /hpf (0-4); Specific Gravity Urine 1.008 (1.000-1.030); Urobilinogen Urine Negative (Negative)
--- NOTE | 2022-03-29 10:50 | Ultrasound Report ---
ULTRASOUND KIDNEYS AND BLADDER CLINICAL HISTORY: Renal insufficiency. COMPARISON STUDY: Abdominal ultrasound dated 11/19/2016. TECHNIQUE: Real-time, grayscale, and color flow sonography of the kidneys and bladder is performed. I mages are reviewed in the transverse and longitudinal planes. FINDINGS: Kidneys: The kidneys are atrophic and echogenic indicating medical renal disease. The right kidney me asures 11.8 cm in length and the left kidney measures 10.7 cm in length. There is no hydronephrosis. A 5 mm shadowing calculus is seen on the left. A 6 cm exophytic cyst arises from the upper pole. Lob ulation of the left renal cortex is similar to previous. There is no sonographic evidence of contour deforming renal mass lesion. No perinephric fluid is identified. Bladder: The bladder is largely decompressed and grossly unremarkable. Only the right ureteral jet wa s seen. IMPRESSION: 1. The kidneys are atrophic and echogenic, consistent with medical renal disease. 2. No hydronephrosis. 3. The bladder was decompressed and grossly unremarkable. ACT 112: Negative or not required by law. Electronically signed by: Ru Abreu M.D. 03/29/2022 10:47 AM
--- NOTE | 2022-03-29 11:24 | Nephrology Consultation ---
Date of Consultation March 29, 2022 Assessment & Plan (1) LLUVIA (acute kidney injury): Non-oliguric. Electrolytes normal. BP and volume status acceptable. Olmesartan held. Metformin held. Medications appropriately dosed for kidney function. Renal US reviewed. UA bland and microscopy accellular. Clinical presentation suggestive of component of prerenal and possible ATN. No additional changes at this time. Continue to hold ARB and metformin. Close outpatient follow up with nephrology encouraged. (2) CKD (chronic kidney disease), stage III: US reviewed. Baseline creatinine ~1.4-1.8 mg/dL. Outpatient nephrology follow up encouraged. (3) Anemia: Followed by hematology. Chronic, stable. (4) Acute respiratory failure with hypoxia: Asthma and RSV. Improving with treatment. Remains on steroids and improving with treatment. (5) Renal cyst: 6 cm exophytic cyst on US. Outpatient follow up with nephrology. Will monitor with repeat imaging in 6-12 months. History of Present Illness Reason for Consultation: LLUVIA/CKD Requesting Physician: Nelson Mackey Attending Physician: Nelson Mackey History of Present Illness Nata Sousa is a 77 year-old female with CKD III A1. Baeline creatinine has been ~1.4-1.8 mg/dL. CKD attributed to DKD and hypertensive arteriosclerosis. Medical history notable for asthma, hypertension, DM, PAF, CAD, and GERD/Casper's. Vircotria presented to [facility] with shortness of breath. She was admitted with PSV infection. Serum creatinine 1.96 mg/dL on admission. Initially treated with 1 dose of IV diuretic and after initial days of hospitalization some IVF replacement. Despite therapy, creatinine has remained stable at ~2.0 mg/dL since 03/27. Nata feels well and denies any acute complaints. No fevers or chills. Breathing comfortable. Appetite good. No GI or urinary symptoms reported. She feels comfortable with the idea of discharge home. I discussed the plan of care with Dr. Mackey this AM. Allergies Allergy/AdvReac Type Severity Reaction Status Date / Time Iodinated Contrast Media Allergy Unknown HIVES, Verified 03/25/22 20:31 ITCHING Home Medications Medication Instructions Recorded Confirmed Type ferrous sulfate 325 mg (65 mg 325 mg PO BID ##0 04/01/17 03/25/22 History iron) tablet multivitamin 1 tab PO QPM #0 tabs 04/01/17 03/25/22 History calcium carbonate 600 mg-vitamin 1 tab PO QPM ##0 12/14/17 03/25/22 History D3 10 mcg (400 unit) chewable tablet (Calcium 600 with Vitamin D3) chromium picolinate 1,000 mcg 1,000 mcg PO QPM 10/27/18 03/25/22 History tablet dorzolamide 2 % eye drops 1 drp ophthalmic (eye) BID ##0 02/15/19 03/25/22 History albuterol sulfate 90 mcg/actuation 2 puff inhalation Q6H PRN 06/14/20 03/25/22 Rx aerosol inhaler (Ventolin HFA) Shortness Of Breath Or Wheezing #1 inhaler blood sugar diagnostic (OneTouch #200 ea 06/26/20 03/24/22 Rx Ultra Blue Test Strip) blood-glucose meter (OneTouch #1 ea 06/26/20 03/24/22 Rx Ultra2 Meter kit) torsemide 10 mg tablet 10 mg PO UD PRN ANKLE SWELLING 10/13/21 03/25/22 History amlodipine 5 mg-olmesartan 20 mg 1 tab PO QAM 12/11/21 03/25/22 History tablet atorvastatin 20 mg tablet 20 mg PO QAM 12/11/21 03/25/22 History brimonidine 0.15 % eye drops 1 drp OPB BID 12/11/21 03/25/22 History nebivolol 10 mg tablet (Bystolic) 10 mg PO QAM 12/11/21 03/25/22 History fluticasone furoate 200 1 inh inhalation QPM #90 ea 01/20/22 03/25/22 Rx mcg-vilanterol 25 mcg/dose inhalation powder (Breo Ellipta) pantoprazole 40 mg tablet,delayed 40 mg PO QPM #90 tabs 01/20/22 03/25/22 Rx release metformin 500 mg tablet,extended 1,000 mg PO QPM #180 tabs 03/23/22 03/25/22 Rx release 24hr sitagliptin 50 mg-metformin 500 mg 1 tab PO QAM #90 tabs 03/23/22 03/25/22 Rx tablet (Janumet) doxycycline monohydrate 100 mg 100 mg PO BID #14 caps 03/24/22 03/25/22 Rx capsule prednisone 20 mg tablet 20 mg PO BID #10 tabs 03/24/22 03/25/22 Rx Patient History Medical History Anemia FOLLOWS HEMATOLOGY, AJALA Asthma WELL CONTROLLED/ NO FLARES FOR A FEW YRS Atrial fibrillation with rapid ventricular response HX AFIB WHILE HOSPITALIZED WITH COVID 19 ([facility] , YRS AGO) - UPON D/C HEART MONITOR WORN...FELT AFIB WAS D/T COVID AT THAT TIME - NO RE-OCCURENCE Barretts esophagus REASON FOR UPCOMING PROCEDURE TO F/U ON CKD (chronic kidney disease), stage III PT NOT SURE DETAILS Dyslipidemia Glaucoma HFrEF (heart failure with reduced ejection fraction) History of obstructive sleep apnea HX + SLEEP APNEA TEST, RE-TESTED AND WAS (-) Hypertension Murmur SOMETIMES DETECTED/FOLLOWS DR HACKETT - ANNUAL ECHOCARDIOGRAMS Myocardial Infarction AGE 38 Osteoarthritis Osteopenia Type 2 diabetes mellitus Surgical History Hip fracture requiring operative repair right pinning and screws History of cardiac cath AGE 38 ...[place]...[facility] /NO STENT(S) History of cataract surgery BOTH History of colonoscopy History of esophagogastroduodenoscopy (EGD) History of tubal ligation Family History Mother FHx: cancer Cancer Family/Other Asthma Brother Diabetes Brother Diabetes Denies family history of Ovarian cancer Prostate cancer Myocardial infarction Lung cancer Colorectal cancer Social History Smoking Status: Never smoker Second Hand Exposure: No; Hx Alcohol Use: No Hx Substance Use: No Preferred Language: Lithuanian Communication Ability: Effective Visual Impairment: Limited Hearing Ability: Normal Diet Consultant Required: No Beliefs That Will Affect Care: None marital status: Current Living Situation: Spouse current occupational status: retired Feels Safe at Home: Yes Childhood Exposure to Second-Hand Smoke: Yes caffeine: Yes Dental Care, Regularly: Yes Physical Activity Frequency: 3-4 Times per Week Seatbelt Use: always Sunscreen Use: No Assistive Devices: None Review of Systems Review of Systems: All systems reviewed & are unremarkable except as noted in HPI & below Physical Exam Constitutional: well developed; no acute distress Eyes: no scleral abnormality and no corneal abnormality Neck: normal visual inspection and trachea midline Respiratory: normal respiratory effort Auscultation: lungs clear to auscultation bilaterally and + wheezes Cardiovascular: Rate/Rhythm: regular rate Heart Sounds: normal S1 and normal S2 Extremities: no edema Musculoskeletal: Extremities: no cyanosis and no clubbing Skin: normal turgor; no lesions Neurologic: Motor/Sensory: no tremor and no asterixis Psychiatric: Orientation: alert and oriented x 3 Results & Data ([facility]) Vital Signs (Past 12 Hours) Vital Signs Pulse Pulse Resp Pulse Ox O2 Del Method 03/29/22 11:09 76 17 97 Room Air 03/29/22 07:50 Room Air 03/29/22 06:59 74 17 95 Room Air Laboratory Results Laboratory Results - last 24 hr 03/28/22 03/28/22 03/28/22 12:27 17:20 20:38 WBC RBC Hgb Hct MCV MCH MCHC RDW Std Deviation RDW Coeff of Aman Plt Count MPV ESR Sodium Potassium Chloride Carbon Dioxide Anion Gap BUN Creatinine Est Cr Clr Drug Dosing Est GFR ( Amer) Est GFR (Non-Af Amer) BUN/Creatinine Ratio Glucose POC Glucose 82 115 H 172 H Calcium C-Reactive Protein Procalcitonin Urine Color Urine Appearance Urine pH Ur Specific [place] Urine Protein Urine Glucose (UA) Urine Ketones Urine Blood Urine Nitrite Urine Bilirubin Urine Urobilinogen Ur Leukocyte Esterase Urine WBC (Auto) Urine RBC (Auto) U Hyaline Cast (Auto) U Epithel Cells (Auto) Urine Bacteria (Auto) 03/29/22 03/29/22 03/29/22 05:53 05:53 05:53 WBC 12.06 H RBC 3.59 L Hgb 10.9 L Hct 32.5 L MCV 90.5 MCH 30.4 MCHC 33.5 RDW Std Deviation 45.3 RDW Coeff of Aman 13.7 Plt Count 200 MPV 11.0 ESR 24 Sodium 141 Potassium 3.8 Chloride 108 H Carbon Dioxide 26 Anion Gap 7 BUN 62 H Creatinine 2.07 H Est Cr Clr Drug Dosing 25.2 Est GFR ( Amer) 26.3 Est GFR (Non-Af Amer) 22.7 BUN/Creatinine Ratio 30.0 H Glucose 116 H POC Glucose Calcium 9.0 C-Reactive Protein 1.88 H Procalcitonin Urine Color Urine Appearance Urine pH Ur Specific [place] Urine Protein Urine Glucose (UA) Urine Ketones Urine Blood Urine Nitrite Urine Bilirubin Urine Urobilinogen Ur Leukocyte Esterase Urine WBC (Auto) Urine RBC (Auto) U Hyaline Cast (Auto) U Epithel Cells (Auto) Urine Bacteria (Auto) 03/29/22 03/29/22 03/29/22 05:53 08:25 09:52 WBC RBC Hgb Hct MCV MCH MCHC RDW Std Deviation RDW Coeff of Aman Plt Count MPV ESR Sodium Potassium Chloride Carbon Dioxide Anion Gap BUN Creatinine Est Cr Clr Drug Dosing Est GFR ( Amer) Est GFR (Non-Af Amer) BUN/Creatinine Ratio Glucose POC Glucose 110 H Calcium C-Reactive Protein Procalcitonin 0.13 Urine Color Yellow Urine Appearance Clear Urine pH 5.0 Ur Specific [place] 1.008 Urine Protein Negative Urine Glucose (UA) Negative Urine Ketones Negative Urine Blood Negative Urine Nitrite Negative Urine Bilirubin Negative Urine Urobilinogen Negative Ur Leukocyte Esterase 1+ H Urine WBC (Auto) 1-5 Urine RBC (Auto) 0-4 U Hyaline Cast (Auto) 1-5 U Epithel Cells (Auto) 0-5 Urine Bacteria (Auto) Negative PG Care Time/CCT Total # of Minutes Spent Total Time Spent with Patient: Total time spent is greater than 50% in coordination of care (as documented) at patient's floor/unit and/or counseling patient: Coding Level of Care Code 94121 Inpt Consult Level 4 Diagnoses LLUVIA (acute kidney injury) N17.9 CKD (chronic kidney disease), stage III N18.3 Anemia D64.9 Acute respiratory failure with hypoxia J96.01 Renal cyst N28.1
--- NOTE | 2022-04-06 10:30 | Discharge Summary ---
Date of Service March 29, 2022 Admission HPI Per Admitting Provider Nata Sousa is a pleasant 77yo female with history of Asthma, HTN, HLP, DM, GERD, PAF and CAD presenting with 3 days of cough, SOB and wheeze. Patient reports cough productive for yellow sputum as well as BLAIR, chest tightness and wheeze. She has been having some mild nausea and diarrhea as well. Patient was seen by her PCP yesterday. She had a CXR performed which showed no evidence of pneumonia. She was told that she was having an asthma exacerbation, bronchitis and some mild dehydration. She was prescribed Doxycycline 100mg po BID and a Prednisone taper. She took one dose of these medications this AM. Today she had marked worsening of her fatigue and weakness. She reports becoming short of breath with ambulating short distances in her home. She denies fever prior to arrival although she was febrile in the ER. Denies sweats, chest pain, palpitations, abdominal pain. She has had a poor appetite with some decreased oral intake. No additional complaints at this time. Upon arrival to the ER patient febrile at 39.1, HD stable, hypoxic at 87% on room air. She was place on supplemental O2 by ND with improvement in saturation. Presently 95% on 2L ER Course: Acetaminophen, Albuterol, Ceftriaxone 2gm, Magnesium 1gm, Solumedrol 125mg Principal Diagnosis RSV bronchitis Discharge Exam Constitutional: WD/WN, vitals as above Eyes: + anicteric sclerae Neck: trachea midline, no thyromegaly Respiratory: normal respiratory effort; no cough Auscultation: + wheezes (Only occasional on the right side, much improved from previous); no crackles, no rales and no rhonchi Cardiovascular: RRR, no murmur, no edema Chest (Breasts): Chest: normal inspection of chest Gastrointestinal (Abdomen): normal bowel sounds, soft, nontender, no hepatosplenomegaly Musculoskeletal: Extremities: extremities normal to inspection; no cyanosis and no clubbing Skin: no rashes, warm and dry Neurologic: moves all extremities and awake; no focal motor deficits Psychiatric: A+Ox3, euthymic affect Lymphatic: no lymphedema Discharge Data Allergies Allergy/AdvReac Type Severity Reaction Status Date / Time Iodinated Contrast Media Allergy Unknown HIVES, Verified 03/25/22 20:31 ITCHING Consultations 03/25/22 19:19 ED Decision to Admit Stat 03/29/22 08:48 Consult Nephrology Routine Ordered Studies 03/29/22 09:51 US Renal Bladder [US renal/blad retro comp] Routine Hospital Course (1) RSV bronchitis: 77yo female with history of asthma presenting with 3 days of cough, wheeze and BLAIR. Patient febrile on arrival, hypoxic to 87% on room air which improved with supplemental NC 2L. Patient found to have RSV on [employer] panel most likely contributing to asthma exacerbation as well. Do not suspect concomitant bacterial PNA based on normal WBC and negative procalcitonin. CXR with pulm edema and possible right sided PNA Blood cultures NGTD Fevers, dyspnea and wheezing are significantly improved -with mild sore throat-ordered throat lozenges -Maintain droplet precautions -Supportive care and treatment of asthma as below Symptoms improved and patient was on room air on 03/29 Patient agreeable to discharge, (2) Acute respiratory failure with hypoxia: 2/2 RSV with pulm edema from acute on chronic HFrEF and viral PNA as above now weaned off supplemental O2, improved continue to treat asthma as below no further lasix needed (3) Asthma exacerbation: Patient with diffuse end-expiratory wheezing. Suspect asthma exacerbation in setting of RSV bronchitis. Now significantly improved with treatment with IV steroids and scheduled bronchodilator nebulizer treatments -continue Solumedrol 40mg IV TID through the end of today and then changed to prednisone 40 Mg p.o. 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 (5) Type 2 diabetes mellitus: Patient with well controlled DM, last RkjP8H=9.2 on 11/06/21 -Hold home medications, Sitagliptin-Metformin With hyperglycemia here 2/2 steroids now much improved with increased doses of insulin -Continue Lantus 10u BID -Continue supplemental NovoLog -Goal blood sugar 110 - 140 (6) Hypomagnesemia: Hypomagnesemia with Mg=1.3 on admission replaced and now normal (7) CAD (coronary artery disease): Chronic. Patient denies chest pain. She follows with Dr. Menendez, last seen October 2021. Most recent echo from October 2021 with moderate LV systolic dysfunction and akinesis of the LV apex and distal inferior segment -Continue Atorvastatin -Continue Amlodipine, but now holding olmesartan Continue metoprolol in place of Bystolic (8) GERD (gastroesophageal reflux disease): Chronic, with Casper's. Stable on medications -Continue Protonix 40mg po daily (9) Paroxysmal atrial fibrillation: Patient presently in NSR. On Bystolic at home Has a h/o lone Afib while hospitalized for COVID in 2020 -Continue metoprolol 12.5mg po BID while hospitalized and then return to home Bystolic upon discharge -Not on anticoagulation presumably due to having lone A. fib (10) Anemia: mild, stable at 10 follows with Hematology (11) HFrEF (heart failure with reduced ejection fraction): as above, EF 35-40% with acute on chronic HFrEF, required IV lasix here and had good diuresis with pulm edema on CXR now weaned off O2 improved monitor volume status give prn torsemide as per home dose Total Time Total Time Spent Total Time Spent (In Minutes): 35 Discharge Plan Discharge Items Patient Disposition: Home - Self-Care Reason For Visit: COUGH, SOB, RSV Discharge Diagnosis: RSV Activity: Resume your previous activity Non-emergency contact: Primary Care Provider Call non-emergency contact if: you have any medication questions Follow-up/Referrals: Rojelio Orona MD [Primary Care Provider] - 04/01/22 3:30 pm Diet: Carb Consistent or DM2 and Heart Healthy Addtl Attending Provider Instructions: You have been hospitalized for an acute medical problem. During your stay at [facility], we have made an effort to correct the problem that brought you to the hospital while keeping you as comfortable as possible. Medications were used to bring your condition under control and your discharge instructions will include directions for any medications you should take after leaving the hospital. Please make sure you see your Primary Care Provider as part of your follow up plan. Pending Studies at Discharge: No Stand-Alone Forms: [facility], Smoking Cessation Medications and DC Order Prescriptions: New prednisone 20 mg Tablet 40 mg PO QAM Qty: 6 0RF Continued multivitamin Tablet 1 tab PO QPM Qty: 0 Label Comments: CENTRUM ferrous sulfate 325 mg (65 mg iron) Tablet 325 mg PO BID Qty: 0 Calcium 600 with Vitamin D3 600 mg(1,500mg) -400 unit Tablet,Chewable 1 tab PO QPM Qty: 0 dorzolamide 2 % drops 1 drp ophthalmic (eye) BID Qty: 0 (DME) OneTouch Ultra Blue Test Strip Strip See Rx Instructions .ROUTE .MEDSUPPLY Qty: 200 1RF Rx Instructions: Test blood sugars twice daily (DME) blood-glucose meter [[employer] Ultra2 Meter] Kit See Rx Instructions .ROUTE .MEDSUPPLY Qty: 1 0RF Rx Instructions: Use to test blood sugars twice daily fluticasone furoate-vilanterol [Breo Ellipta] 200-25 mcg/dose blister with device 1 inh INH QPM Qty: 90 1RF pantoprazole 40 mg tablet,delayed release (DR/EC) 40 mg PO QPM Qty: 90 1RF Janumet 50-500 mg tablet 1 tab PO QAM Qty: 90 3RF torsemide 10 mg tablet 10 mg PO UD PRN (Reason: ANKLE SWELLING ) chromium picolinate 1,000 mcg Tablet 1,000 mcg PO QPM brimonidine 0.15 % Drops 1 drp OPB BID atorvastatin 20 mg tablet 20 mg PO QAM nebivolol [Bystolic] 10 mg tablet 10 mg PO QAM Discontinued metformin 500 mg tablet extended release 24hr 1,000 mg PO QPM Qty: 180 3RF doxycycline monohydrate 100 mg capsule 100 mg PO BID Qty: 14 0RF prednisone 20 mg tablet 20 mg PO BID Qty: 10 0RF amlodipine-olmesartan 5-20 mg tablet 1 tab PO QAM No Action amlodipine [Norvasc] 5 mg tablet 5 mg PO QAM Qty: 30 2RF (DME) Aerochamber Plus Z Stat Spacer See Rx Instructions .ROUTE .MEDSUPPLY Qty: 1 0RF Rx Instructions: As directed albuterol sulfate [Ventolin HFA] 90 mcg/actuation HFA aerosol inhaler 2 puff INHALATION Q6H PRN (Reason: Shortness Of Breath Or Wheezing) Qty: 1 0RF Discharge Orders: Discharge Order (Routine); Ordered 03/29/22 Ordered By: Nelson Mackey Admission Data Admit Date/Time: 03/25/22 19:43 Attending Provider: Nelson Mackey Admit Provider: Rosalie Jimenez Primary Care Provider: Rojelio Orona Other Providers: Rosalie Jimenez ; Maurice He ; Onesimo Hickey ; Dorina Rosado ; Constantino Costello ; Betzaida Jean Other Interventions: Discharge Summary Assessment (RN) Last Done: 03/29/22 15:08 Coding Level of Care Code D/C DAY MANAGEMENT >30 MINS Diagnoses RSV bronchitis J20.5 Acute respiratory failure with hypoxia J96.01 Asthma exacerbation J45.901 Asthma persistence: unspecified Asthma severity: moderate CKD (chronic kidney disease), stage III N18.3 Type 2 diabetes mellitus E11.22; N18.3 Diabetes mellitus group home insulin use: without group home use Diabetes mellitus complication status: with kidney complications Diabetes mellitus complication detail: with chronic kidney disease Chronic kidney disease stage: stage 3 (moderate) Hypomagnesemia E83.42 CAD (coronary artery disease) I25.10 Coronary Disease-Associated Artery/Lesion type: unspecified vessel or lesion type [place] vs. transplanted heart: [place] heart Associated angina: without angina GERD (gastroesophageal reflux disease) K21.9 Esophagitis presence: esophagitis presence not specified Paroxysmal atrial fibrillation I48.0 Anemia D64.9 HFrEF (heart failure with reduced ejection fraction) I50.20
== END 2022-03-29 16:39 | disposition home or self-care (01) | DRG 202 ==
LOC: ED 16:44 → SUATTDRO 19:43 → 3E 19:43

== ENCOUNTER 2022-11-26 10:40 | Inpatient (IN) ==
[2022-11-26] MEDS ORDERED: SODIUM CHLORIDE 0.9% 500 ML IV ONE (10:55)
--- NOTE | 2022-11-26 10:59 | Emergency Department Note ---
Impression & Plan Cardiac arrest ED Provider Note NAME: MELISSA WEBER AGE: 77 SEX: F : 1945 ARRIVES VIA: Ambulance INFORMANT: Patient ED PROVIDER(S): Jesus Francois DO CHIEF COMPLAINT: Cardiac arrest HPI: Patient is a 77-year-old female who presents to the ER as she was obtaining a bubble study at the cardiology office. She went unresponsive with agonal breathing and was pulseless for 2 minutes per report. She received 2 to 3 minutes of CPR. She eventually regained consciousness and she was brought over to the ER by EMS. She notes that she remembers feeling sick to her stomach while getting the study done. She does not remember anything after that. She denies any headache or change in vision. No chest pain or shortness of breath prior to the procedure. She notes her chest is sore currently. Denies any belly pain. No vomiting or diarrhea. No weakness or numbness in the arms or legs. No other exacerbating or remitting factors. PAST MEDICAL HISTORY:See Below PAST SURGICAL HISTORY:See Below FAMILY HISTORY:See Below SOCIAL HISTORY:See Below HOME MEDICATIONS:See Below ALLERGIES:See Below VITALS:See Below PHYSICAL EXAMINATION: GENERAL: Sitting up in bed, alert, well appearing, well nourished, no distress, non-toxic EYE EXAM: normal conjunctiva. PERRL and EOM's intact. OROPHARYNX: no exudate, no erythema, lips, buccal mucosa, and tongue normal and mucous membranes are moist NECK: supple, no nuchal rigidity, no adenopathy, non-tender LUNGS: Clear to auscultation. Normal chest wall mechanics HEART: no murmurs, S1 normal and S2 normal ABDOMEN: abdomen soft, non-tender, normo-active bowel sounds, no masses, no rebound or guarding. BACK: Back is symmetrical on inspection and there is no deformity, no midline tenderness, no CVA tenderness. SKIN: no rashes and no bruising UPPER EXTREMITIES: upper extremities are grossly normal. LOWER EXTREMITIES: No pitting edema. NEURO EXAM: Normal sensorium, cranial nerves II-XII intact, normal speech, no weakness of arms, no weakness of legs. No drift. Finger to nose intact. Gross sensation intact. MEDICAL DECISION MAKING: Patient is a 77-year-old female who presents the ER brought in from cardiology office for possible cardiac arrest. She per report became unresponsive and was pulseless for 2 minutes received 2 minutes of CPR. She did wake back up. IV was established blood work was obtained. Labs show no significant leukocytosis. Mild anemia 11. VBG with a pH of 7.27. BMP with creatinine 1.7 fairly consistent with previous. Mild transaminitis. Troponin was only mildly elevated at 14 which would be atypical for 2 minutes of CPR. Lipase was unremarkable. EKG not significantly changed from previous. Chest x-ray was unremarkable. Did discuss with interventional cardiology and they agreed with additional work-up and close monitoring. Discussed with Dr. Salvador Jimenez for further evaluation management treatment. Triage Nursing notes reviewed. Limited review of prior medical records performed Vital Signs: reviewed and remarkable for no significant abnormalities Differential diagnosis: Cardiac ischemia, aortic dissection, pulmonary embolism, pneumothorax, pneumonia, pericarditis, myocarditis, esophageal rupture, GERD, cholecystitis, pancreatitis, musculoskeletal, as well as other pathologies. ER treatment provided: See below Diagnostics interpreted by me include EKG and cardiac monitoring as listed below: -Cardiac Monitoring: An order was placed for continuous cardiac monitoring. The monitor shows a rate of 70 with sinus rhythm. -ECG: Sinus rhythm rate 74 Left axis Left bundle branch block T wave inversion in the high lateral leads ST depressions in the lateral leads T wave inversion in the lateral leads ST depression in V5 is new in comparison to previous -Laboratory studies:Interpreted by me as stated above in MDM and shown below. Imaging studies: Xrays: As interpreted by me: Portable AP upright 1 view of the chest shows no focal infiltrate CTs show: CT of the head was negative Consultation(s): As described in MDM Procedures:none Critical Care: None Past Med/Surg History Medical History (Updated 11/26/22 @ 14:11 by Jesus Francois DO) Acute bronchospasm LLUVIA (acute kidney injury) Anemia FOLLOWS HEMATOLOGY, AJALA Asthma Asthma exacerbation Atrial fibrillation with rapid ventricular response HX AFIB WHILE HOSPITALIZED WITH COVID 19 ([facility] , YRS AGO) - UPON D/C HEART MONITOR WORN...FELT AFIB WAS D/T COVID AT THAT TIME - NO RE-OCCURENCE Barretts esophagus REASON FOR UPCOMING PROCEDURE TO F/U ON CKD (chronic kidney disease), stage III PT NOT SURE DETAILS COVID-19 Dyslipidemia Elbow fracture, right Fever Glaucoma HFrEF (heart failure with reduced ejection fraction) History of obstructive sleep apnea HX + SLEEP APNEA TEST, RE-TESTED AND WAS (-) Hypertension Murmur SOMETIMES DETECTED/FOLLOWS DR HACKETT - ANNUAL ECHOCARDIOGRAMS Myocardial Infarction AGE 38 Osteoarthritis Osteopenia Personal history of COVID-19 Pneumonia Pulmonary nodules/lesions, multiple Scattered 5mm nodules on CT Chest 08/2022 RSV bronchitis Type 2 diabetes mellitus Surgical History Hip fracture requiring operative repair right pinning and screws History of cardiac cath AGE 38 ...[place] /NO STENT(S) History of cataract surgery BOTH History of colonoscopy History of esophagogastroduodenoscopy (EGD) History of tubal ligation Family History Mother FHx: cancer Cancer Family/Other Asthma Brother Diabetes Brother Diabetes Denies family history of Ovarian cancer Prostate cancer Myocardial infarction Lung cancer Colorectal cancer Social History Smoking Status: Never smoker Second Hand Exposure: No; Do You Dip or Chew Tobacco: No; Hx Alcohol Use: No Hx Substance Use: No Preferred Language: Turkish Communication Ability: Effective Visual Impairment: Limited Hearing Ability: Normal Box Sorter Required: No Beliefs That Will Affect Care: None marital status: Current Living Situation: Spouse current occupational status: retired Feels Safe at Home: Yes Childhood Exposure to Second-Hand Smoke: Yes caffeine: Yes Dental Care, Regularly: Yes Physical Activity Frequency: 3-4 Times per Week Seatbelt Use: always Sunscreen Use: No Assistive Devices: None Allergies Allergies Allergy/AdvReac Type Severity Reaction Status Date / Time Iodinated Contrast Media Allergy Unknown HIVES, Verified 10/29/22 10:32 ITCHING Definity AdvReac Severe Unresponsiv Uncoded 11/26/22 12:22 e Home Meds Home Medications Medication Instructions Recorded Confirmed ferrous sulfate 325 mg (65 mg 325 mg PO BID ##0 04/01/17 10/29/22 iron) tablet multivitamin 1 tab PO QPM #0 tabs 04/01/17 10/29/22 calcium carbonate 600 mg-vitamin 1 tab PO QPM ##0 12/14/17 10/29/22 D3 10 mcg (400 unit) chewable tablet (Calcium 600 with Vitamin D3) chromium picolinate 1,000 mcg 1,000 mcg PO QPM 05/23/19 05/25/23 tablet dorzolamide 2 % eye drops 1 drp ophthalmic (eye) BID ##0 02/15/19 10/29/22 atorvastatin 20 mg tablet 20 mg PO QAM 12/11/21 10/29/22 brimonidine 0.15 % eye drops 1 drp OPB BID 12/11/21 10/29/22 Previous Rx's Medication Instructions Recorded blood sugar diagnostic (OneTouch #200 ea 06/26/20 Ultra Blue Test Strip) blood-glucose meter (OneTouch #1 ea 06/26/20 Ultra2 Meter kit) sitagliptin phosphate 50 1 tab PO QAM #90 tabs 03/23/22 mg-metformin 500 mg tablet (Janumet) inhalational spacing device #1 ea 04/01/22 (Aerochamber Plus Z Stat spacer) metformin 500 mg tablet,extended 1,000 mg PO QPM #180 tabs 04/09/22 release 24hr pantoprazole 40 mg tablet,delayed See Rx Instructions .Route 07/06/22 release .COMPLEX #90 tabs fluticasone furoate 200 1 inh inhalation QPM #90 ea 07/16/22 mcg-vilanterol 25 mcg/dose inhalation powder (Breo Ellipta) amlodipine 5 mg tablet (Norvasc) 5 mg PO QAM #90 tabs 07/21/22 torsemide 10 mg tablet 10 mg PO UD PRN ANKLE SWELLING 09/29/22 #90 tabs nebivolol 10 mg tablet (Bystolic) 10 mg PO DAILY #90 tabs 10/05/22 albuterol sulfate 90 mcg/actuation 2 puff inhalation Q6H PRN 10/19/22 aerosol inhaler (Ventolin HFA) Shortness Of Breath Or Wheezing #1 inhaler triamcinolone acetonide 40 mg/mL 60 mg (1.5 mL) IM DAILY #1.5 mL 10/27/22 suspension for injection (Kenalog) Results & Data (ED) Vital Signs Vital Signs - 24 hr 11/26/22 10:44 11/26/22 10:47 11/26/22 10:55 Temperature Source Axillary Pulse Rate 75 76 Pulse Rate [Apical] Pulse Rate from SpO2 Sensor Pulse Rhythm [Apical] Pulse Strength [Apical] Respiratory Rate 24 Respiratory Effort / Characteristics Non-Labored Spontaneous Respiratory Depth Normal Respiratory Pattern Regular Blood Pressure 172/83 H Blood Pressure [Left Arm] Blood Pressure Mean 112 Blood Pressure Mean [Left Arm] Pulse Oximetry 95 94 Oxygen Delivery Method Room Air Room Air Oxygen Flow Rate Sepsis Recent Fever Within 48 Hours No Sepsis New/Unexplained Change in Mental Status N/A Sepsis Action Taken by Nursing No Action Required 11/26/22 11:45 11/26/22 11:46 11/26/22 10:46 Temperature Source Pulse Rate 76 Pulse Rate [Apical] 76 Pulse Rate from SpO2 Sensor 76 Pulse Rhythm [Apical] Pulse Strength [Apical] Respiratory Rate 14 14 Respiratory Effort / Characteristics Respiratory Depth Respiratory Pattern Blood Pressure Blood Pressure [Left Arm] 133/100 Blood Pressure Mean Blood Pressure Mean [Left Arm] 111 Pulse Oximetry 91 94 97 Oxygen Delivery Method Room Air Nasal Cannula Oxygen Flow Rate 4 Sepsis Recent Fever Within 48 Hours Sepsis New/Unexplained Change in Mental Status Sepsis Action Taken by Nursing 11/26/22 10:48 11/26/22 10:48 11/26/22 11:00 Temperature Source Pulse Rate 75 Pulse Rate [Apical] Pulse Rate from SpO2 Sensor 75 74 Pulse Rhythm [Apical] Pulse Strength [Apical] Respiratory Rate 15 16 Respiratory Effort / Characteristics Respiratory Depth Respiratory Pattern Blood Pressure 172/83 H Blood Pressure [Left Arm] Blood Pressure Mean 112 Blood Pressure Mean [Left Arm] Pulse Oximetry 96 95 Oxygen Delivery Method Oxygen Flow Rate Sepsis Recent Fever Within 48 Hours Sepsis New/Unexplained Change in Mental Status Sepsis Action Taken by Nursing 11/26/22 11:18 11/26/22 11:32 11/26/22 13:00 Temperature Source Pulse Rate 76 Pulse Rate [Apical] 66 Pulse Rate from SpO2 Sensor 78 76 Pulse Rhythm [Apical] Regular Pulse Strength [Apical] Normal Respiratory Rate 18 17 Respiratory Effort / Characteristics Non-Labored Spontaneous Respiratory Depth Normal Respiratory Pattern Regular Blood Pressure Blood Pressure [Left Arm] 156/85 H Blood Pressure Mean Blood Pressure Mean [Left Arm] 108 Pulse Oximetry 93 96 99 Oxygen Delivery Method Oxygen Flow Rate Sepsis Recent Fever Within 48 Hours Sepsis New/Unexplained Change in Mental Status Sepsis Action Taken by Nursing 11/26/22 11:47 11/26/22 12:15 11/26/22 12:30 Temperature Source Pulse Rate 77 73 72 Pulse Rate [Apical] Pulse Rate from SpO2 Sensor 77 73 73 Pulse Rhythm [Apical] Pulse Strength [Apical] Respiratory Rate 22 19 18 Respiratory Effort / Characteristics Respiratory Depth Respiratory Pattern Blood Pressure Blood Pressure [Left Arm] Blood Pressure Mean Blood Pressure Mean [Left Arm] Pulse Oximetry 97 94 90 Oxygen Delivery Method Oxygen Flow Rate Sepsis Recent Fever Within 48 Hours Sepsis New/Unexplained Change in Mental Status Sepsis Action Taken by Nursing 11/26/22 12:45 11/26/22 13:02 11/26/22 13:15 Temperature Source Pulse Rate 70 69 67 Pulse Rate [Apical] Pulse Rate from SpO2 Sensor 70 69 67 Pulse Rhythm [Apical] Pulse Strength [Apical] Respiratory Rate 17 18 22 Respiratory Effort / Characteristics Respiratory Depth Respiratory Pattern Blood Pressure Blood Pressure [Left Arm] Blood Pressure Mean Blood Pressure Mean [Left Arm] Pulse Oximetry 98 99 99 Oxygen Delivery Method Oxygen Flow Rate Sepsis Recent Fever Within 48 Hours Sepsis New/Unexplained Change in Mental Status Sepsis Action Taken by Nursing 11/26/22 13:30 Temperature Source Pulse Rate 69 Pulse Rate [Apical] Pulse Rate from SpO2 Sensor 69 Pulse Rhythm [Apical] Pulse Strength [Apical] Respiratory Rate 21 Respiratory Effort / Characteristics Respiratory Depth Respiratory Pattern Blood Pressure Blood Pressure [Left Arm] Blood Pressure Mean Blood Pressure Mean [Left Arm] Pulse Oximetry 98 Oxygen Delivery Method Oxygen Flow Rate Sepsis Recent Fever Within 48 Hours Sepsis New/Unexplained Change in Mental Status Sepsis Action Taken by Nursing Laboratory Data 11/26/22 10:55 11/26/22 10:55 Lab Results 11/26/22 11/26/22 11/26/22 Range/Units 10:55 10:55 10:55 WBC 7.99 (4.8-10.8) K/ul RBC 3.71 L (4.20-5.40) M/uL Hgb 11.0 L (12.0-16.0) g/dl POC Hgb (12.0-16.0) g/dl Hct 34.0 L (37.0-47.0) % POC Hct (37-47) % MCV 91.6 (80.0-100.0) fL MCH 29.6 (25.0-34.0) pg MCHC 32.4 (32.0-36.0) g/dL RDW Std Deviation 49.4 H (36.4-46.3) fL RDW Coeff of Aman 14.6 H (11.5-14.5) % Plt Count 193 (130-400) K/uL MPV 11.0 (9.4-12.4) fL Immature Gran % (Auto) 5.4 % Neut % (Auto) 73.6 % Lymph % (Auto) 18.6 % [place] % (Auto) 1.8 % Eos % (Auto) 0.3 % Baso % (Auto) 0.3 % Neut # (Auto) 5.89 (1.40-6.50) K/uL Lymph # (Auto) 1.49 (1.2-3.4) K/uL [place] # (Auto) 0.14 (0.11-0.59) K/uL Eos # (Auto) 0.02 (0-0.50) K/uL Baso # (Auto) 0.02 (0-0.2) K/uL Immature Gran # (Auto) 0.43 H (0.01-0.20) K/uL VBG pH 7.27 L (7.36-7.41) VBG pCO2 49 (38-50) mmHg VBG pO2 39 mmHg VBG HCO3 23 mmol/L VBG O2 Saturation 61.9 % VBG Base Excess -4.7 mEq/L POC Sodium (135-144) mmol/L Sodium 140 (136-145) mmol/L POC Potassium (3.3-5.0) mmol/L Potassium 4.2 (3.5-5.1) mmol/L POC Chloride (101-112) mmol/L Chloride 108 H (98-107) mmol/L Carbon Dioxide 24 (21-32) mmol/L POC Total CO2 (24-31) mmol/L Anion Gap 8 (3-11) POC Anion Gap (16-25) mmol/L POC BUN (7-18) mg/dl BUN 32 H (6-23) mg/dl Creatinine 1.76 H (0.6-1.2) mg/dl POC Creatinine (0.6-1.3) mg/dl Est Cr Clr Drug Dosing 29.2 ml/min Est GFR ( Amer) 32.0 ml/min Est GFR (Non-Af Amer) 27.6 ml/min BUN/Creatinine Ratio 18.2 (10-20) Glucose 156 H (70-99(Fasting)) mg/dl POC Glucose (other) (70-99) mg/dl Calcium 9.7 (8.6-10.3) mg/dl POC Ioniz Calcium Ya (1.12-1.32) mmol/l Total Bilirubin 0.7 (0.2-1.0) mg/dl AST 151 H (13-39) U/L ALT 111 H (7-52) U/L Alkaline Phosphatase 59 (34-104) U/L Troponin I High Sens 14.8 H (0-14) pg/ml Total Protein 7.4 (6.0-8.3) gm/dl Albumin 4.0 (3.4-5.0) gm/dl Globulin 3.4 (2.5-4.0) gm/dl Albumin/Globulin Ratio 1.2 (0.9-2) Lipase 67 (11-82) U/L SARS-CoV-2, RNA, NAAT (NEGATIVE) 11/26/22 11/26/22 Range/Units 11:03 11:49 WBC (4.8-10.8) K/ul RBC (4.20-5.40) M/uL Hgb (12.0-16.0) g/dl POC Hgb 11.6 L (12.0-16.0) g/dl Hct (37.0-47.0) % POC Hct 34 L (37-47) % MCV (80.0-100.0) fL MCH (25.0-34.0) pg MCHC (32.0-36.0) g/dL RDW Std Deviation (36.4-46.3) fL RDW Coeff of Aman (11.5-14.5) % Plt Count (130-400) K/uL MPV (9.4-12.4) fL Immature Gran % (Auto) % Neut % (Auto) % Lymph % (Auto) % [place] % (Auto) % Eos % (Auto) % Baso % (Auto) % Neut # (Auto) (1.40-6.50) K/uL Lymph # (Auto) (1.2-3.4) K/uL [place] # (Auto) (0.11-0.59) K/uL Eos # (Auto) (0-0.50) K/uL Baso # (Auto) (0-0.2) K/uL Immature Gran # (Auto) (0.01-0.20) K/uL VBG pH (7.36-7.41) VBG pCO2 (38-50) mmHg VBG pO2 mmHg VBG HCO3 mmol/L VBG O2 Saturation % VBG Base Excess mEq/L POC Sodium 142 (135-144) mmol/L Sodium (136-145) mmol/L POC Potassium 4.3 (3.3-5.0) mmol/L Potassium (3.5-5.1) mmol/L POC Chloride 108 (101-112) mmol/L Chloride (98-107) mmol/L Carbon Dioxide (21-32) mmol/L POC Total CO2 22 L (24-31) mmol/L Anion Gap (3-11) POC Anion Gap 17.0 (16-25) mmol/L POC BUN 30 H (7-18) mg/dl BUN (6-23) mg/dl Creatinine (0.6-1.2) mg/dl POC Creatinine 1.9 H (0.6-1.3) mg/dl Est Cr Clr Drug Dosing ml/min Est GFR ( Amer) ml/min Est GFR (Non-Af Amer) ml/min BUN/Creatinine Ratio (10-20) Glucose (70-99(Fasting)) mg/dl POC Glucose (other) 160 H (70-99) mg/dl Calcium (8.6-10.3) mg/dl POC Ioniz Calcium Ya 1.26 (1.12-1.32) mmol/l Total Bilirubin (0.2-1.0) mg/dl AST (13-39) U/L ALT (7-52) U/L Alkaline Phosphatase (34-104) U/L Troponin I High Sens (0-14) pg/ml Total Protein (6.0-8.3) gm/dl Albumin (3.4-5.0) gm/dl Globulin (2.5-4.0) gm/dl Albumin/Globulin Ratio (0.9-2) Lipase (11-82) U/L SARS-CoV-2, RNA, NAAT NEGATIVE (NEGATIVE) Administered Medications Discontinued Medications Sodium Chloride (Nss) 500 mls @ 999 mls/hr IV .Q31M ONE Stop: 11/26/22 11:25 Last Infusion: 11/26/22 12:02 Dose: 0 mls/hr Documented By: Admin: 11/26/22 11:19 Dose: 999 mls/hr Documented By: JOSSY Morphine Sulfate (Morphine Sulfate 4 Mg/Ml 1 Ml Carp\Vial) 4 mg IV NOW STA Stop: 11/26/22 11:35 Last Admin: 11/26/22 11:36 Dose: 4 mg Documented By: JOSSY Morphine Sulfate (Morphine Sulfate 4 Mg/Ml 1 Ml Carp\Vial) Confirm Administered Dose 4 mg .ROUTE .STK-MED ONE Stop: 11/26/22 11:36 Last Admin: 11/26/22 11:36 Dose: Not Given Documented By: JOSSY Ondansetron HCl (Ondansetron Inj 2 Mg/Ml 2 Ml Vial) 4 mg IV NOW STA Stop: 11/26/22 11:35 Last Admin: 11/26/22 11:39 Dose: 4 mg Documented By: JOSSY Imaging Data Radiologist's Impression: Head CT 11/26/22 10:54 CT head/brain wo con CLINICAL HISTORY: Cardiac arrest status post bubble study Technique: Contiguous axial CT images of the head were acquired from the base of the skull to the vertex without intravenous contrast administration. Images were viewed in brain, subdural and bone windows. Automated dose lowering techniques and/or adjustment according to patient size were utilized for this exam. Comparison: Comparison is made to CT head 01/02/2021 Findings: Areas of decreased attenuation are present in the periventricular and subcortical white matter bilaterally consistent with small vessel ischemic disease. Generalized cerebral atrophy with commensurate enlargement of the ventricles, sulci, and cisterns is also present. There is no acute intracranial hemorrhage or evidence of acute territorial infarction. No shift of the midline structures, mass effect, or extra-axial abnormalities are shown. Atherosclerotic calcifications are present in the intracranial segments of the internal carotid arteries. Imaged portions of the paranasal sinuses and mastoid air cells are clear. The orbits appear normal. There are no acute fractures of the calvaria or scalp swelling. Hyperostosis frontalis is incidentally noted. Impression: No acute intracranial hemorrhage, no evidence of acute territorial infarction or other acute intracranial disease process. ACT 112: Negative or not required by law. Electronically signed by: Jose Armando Berry M.D. 11/26/2022 11:19 AM Chest X-Ray 11/26/22 10:55 XR chest 1V portable CLINICAL HISTORY: Chest pain, nonspecific TECHNIQUE: Single frontal radiograph of the chest was obtained. Comparison: Comparison is made to chest radiograph 10/19/2022 FINDINGS: No lines and tubes are seen. Cardiomegaly is noted. The aortic arch is calcified. Prominence and cephalization of the vasculature is seen. Interstitial opacities are noted which may represent fibrotic change versus interstitial marcus ma. No evidence of pleural effusion or pneumothorax. IMPRESSION: Cardiomegaly and mild pulmonary edema. ACT 112: Negative or not required by law. Electronically signed by: Jose Armando Berry M.D. 11/26/2022 11:35 AM Discharge Plan Visit Data Chief Complaint: Cardiac Assessment ED Provider: Jesus Francois Discharge Problem: Cardiac arrest Forms Stand Alone Forms: [facility] [employer] Prescriptions Prescriptions: No Action multivitamin Tablet 1 tab PO QPM Qty: 0 Patient Comments: CENTRUM ferrous sulfate 325 mg (65 mg iron) Tablet 325 mg PO BID Qty: 0 Calcium 600 with Vitamin D3 600 mg(1,500mg) -400 unit Tablet,Chewable 1 tab PO QPM Qty: 0 dorzolamide 2 % drops 1 drp ophthalmic (eye) BID Qty: 0 (DME) OneTouch Ultra Blue Test Strip Strip See Rx Instructions .ROUTE .MEDSUPPLY Qty: 200 1RF Rx Instructions: Test blood sugars twice daily (DME) blood-glucose meter [OneTouch Ultra2 Meter] Kit See Rx Instructions .ROUTE .MEDSUPPLY Qty: 1 0RF Rx Instructions: Use to test blood sugars twice daily Janumet 50-500 mg tablet 1 tab PO QAM Qty: 90 3RF pantoprazole 40 mg tablet,delayed release (DR/EC) See Rx Instructions .ROUTE .COMPLEX Qty: 90 3RF Dose Instruction: TAKE 1 TABLET DAILY IN THE EVENING Rx Instructions: TAKE 1 TABLET DAILY IN THE EVENING fluticasone furoate-vilanterol [Breo Ellipta] 200-25 mcg/dose blister with device 1 inh INH QPM Qty: 90 1RF torsemide 10 mg tablet 10 mg PO UD PRN (Reason: ANKLE SWELLING ) Qty: 90 3RF nebivolol [Bystolic] 10 mg tablet 10 mg PO DAILY Qty: 90 3RF amlodipine [Norvasc] 5 mg tablet 5 mg PO QAM Qty: 90 3RF triamcinolone acetonide [Kenalog] 40 mg/mL suspension 60 mg IM DAILY Qty: 1.5 0RF metformin 500 mg tablet extended release 24hr 1,000 mg PO QPM Qty: 180 3RF albuterol sulfate [Ventolin HFA] 90 mcg/actuation HFA aerosol inhaler 2 puff INHALATION Q6H PRN (Reason: Shortness Of Breath Or Wheezing) Qty: 1 0RF (DME) Aerochamber Plus Z Stat Spacer See Rx Instructions .ROUTE .MEDSUPPLY Qty: 1 0RF Rx Instructions: As directed chromium picolinate 1,000 mcg Tablet 1,000 mcg PO QPM brimonidine 0.15 % Drops 1 drp OPB BID atorvastatin 20 mg tablet 20 mg PO QAM Referrals Referrals: Nuria Turner MD [Primary Care Provider] -
[2022-11-26 11:10] LABS: Base Excess VBG -4.7 mEq/L; HCO3 VBG 23 mmol/L; Oxygen Saturation VBG 61.9 %; PCO2 VBG 49 mmHg (38-50); PO2 VBG 39 mmHg; pH VBG 7.27 (7.36-7.41)
[2022-11-26 11:16] LABS: iSTAT Creatinine 1.9 mg/dl (0.6-1.3); iSTAT Hemoglobin 11.6 g/dl (12.0-16.0); iSTAT Ionized Calcium 1.26 mmol/l (1.12-1.32); iSTAT Potassium 4.3 mmol/L (3.3-5.0)
--- NOTE | 2022-11-26 11:21 | CT Scan Report ---
CT head/brain wo con CLINICAL HISTORY: Cardiac arrest status post bubble study Technique: Contiguous axial CT images of the head were acquired from the base of the skull to the tanner brendan without intravenous contrast administration. Images were viewed in brain, subdural and bone [facility]. Automated dose lowering techniques and/or adjustment according to patient size were utilized for this exam. Comparison: Comparison is made to CT head 01/02/2021 Findings: Areas of decreased attenuation are present in the periventricular and subcortical white matter bilate rally consistent with small vessel ischemic disease. Generalized cerebral atrophy with commensurate e nlargement of the ventricles, sulci, and cisterns is also present. There is no acute intracranial hem orrhage or evidence of acute territorial infarction. No shift of the midline structures, mass effect, or extra-axial abnormalities are shown. Atherosclerotic calcifications are present in the intracran ial segments of the internal carotid arteries. Imaged portions of the paranasal sinuses and mastoid air cells are clear. The orbits appear normal. There are no acute fractures of the calvaria or scalp swelling. Hyperostosis frontalis is incidental ly noted. Impression: No acute intracranial hemorrhage, no evidence of acute territorial infarction or other acute intracra nial disease process. ACT 112: Negative or not required by law. Electronically signed by: Jose Armando Berry M.D. 11/26/2022 11:19 AM
[2022-11-26 11:33] LABS: Mean Corpuscular Hemoglobin 29.6 pg (25.0-34.0); Mean Corpuscular Hgb Conc 32.4 g/dL (32.0-36.0); Mean Corpuscular Volume 91.6 fL (80.0-100.0); Platelet Count 193 K/uL (130-400); RDW Coefficient of Variation 14.6 % (11.5-14.5); RDW Standard Deviation 49.4 fL (36.4-46.3); Red Blood Count 3.71 M/uL (4.20-5.40); White Blood Count 7.99 K/ul (4.8-10.8)
[2022-11-26] MEDS ORDERED: ONDANSETRON INJ 2 MG/ML 2 ML VIAL IV STA (11:34)
[2022-11-26] MEDS ORDERED: MoRPHine SULFATE 4 MG/ML 1 ML CARP\\VIAL IV STA (11:34)
[2022-11-26] MEDS ORDERED: MoRPHine SULFATE 4 MG/ML 1 ML CARP\\VIAL ONE (11:35)
--- NOTE | 2022-11-26 11:36 | XRay Report ---
XR chest 1V portable CLINICAL HISTORY: Chest pain, nonspecific TECHNIQUE: Single frontal radiograph of the chest was obtained. Comparison: Comparison is made to chest radiograph 10/19/2022 FINDINGS: No lines and tubes are seen. Cardiomegaly is noted. The aortic arch is calcified. Prominence and ceph alization of the vasculature is seen. Interstitial opacities are noted which may represent fibrotic c hange versus interstitial edema. No evidence of pleural effusion or pneumothorax. IMPRESSION: Cardiomegaly and mild pulmonary edema. ACT 112: Negative or not required by law. Electronically signed by: Jose Armando Berry M.D. 11/26/2022 11:35 AM
[2022-11-26 11:38] LABS: Albumin Globulin Ratio 1.2 (0.9-2); BUN Creatinine Ratio 18.2 (10-20); Bilirubin,Total 0.7 mg/dl (0.2-1.0); Calcium 9.7 mg/dl (8.6-10.3); Creatinine Clr Calc Pharmacy 29.2 ml/min; Est GFR (Non-African American) 27.6 ml/min; Globulin 3.4 gm/dl (2.5-4.0); Potassium 4.2 mmol/L (3.5-5.1); Total Protein 7.4 gm/dl (6.0-8.3)
[2022-11-26 11:42] LABS: Troponin I High Sensitivity 14.8 pg/ml (0-14)
[2022-11-26 11:59] LABS: Basophils # (auto) 0.02 K/uL (0-0.2); Basophils % (auto) 0.3 %; Eosinophils # (auto) 0.02 K/uL (0-0.50); Eosinophils % (auto) 0.3 %; Immature Granulocytes # (auto) 0.43 K/uL (0.01-0.20); Immature Granulocytes % (auto) 5.4 %; Lymphocytes # (auto) 1.49 K/uL (1.2-3.4); Lymphocytes % (auto) 18.6 %; Monocytes # (auto) 0.14 K/uL (0.11-0.59); Monocytes % (auto) 1.8 %; Neutrophils # (auto) 5.89 K/uL (1.40-6.50); Neutrophils % (auto) 73.6 %
--- NOTE | 2022-11-26 12:15 | History & Physical Report ---
Date of Service November 26, 2022 Assessment & Plan (1) History of sudden cardiac arrest successfully resuscitated: Plan: 77yo female with history of DM, HTN, HLP, HFrEF and CAD presenting from clinic after an asystolic event following administration of echocardiogram dye. Patient received 2 minutes of CPR with subsequent ROSC. Presently afebrile, HD stable, complaining only of chest soreness. Troponin mildly elevated at 14.8 and CXR with cardiomegaly with mild pulmonary edema following CPR. ?effect of dye administration? -Admit to PCU, continuous cardiac monitoring -Check Mg and replete as needed -Check BNP -Trend troponin x 3 sets - expect increase in setting of recent chest compressions -Check 2D echocardiogram -Cardiology consultation appreciated -Incentive spirometry q hourly -Tylenol and Oxy-IR as needed for chest pain (2) Hypertension: Plan: Blood pressure adequate at present. 133/100 -Continue Amlodipine 5mg po daily -Continue Nebivolol -Monitor (3) CKD (chronic kidney disease), stage III: Plan: BUN and Cr near baseline. -Avoid nephrotoxic agents -Renal dosing where needed -Repeat chemistry in AM (4) Type 2 diabetes mellitus: Plan: Overall well controlled. Last [id number]=1.6 on 07/21/22. Patient is on Sitagliptin and Metformin as an outpatient. -Hold oral agents -Lantus 5u BID -ISS -Goal blood sugar 110 - 140 (5) Asthma: Plan: Chronic. No cough, SOB or wheeze -Continue Albuterol PRN -Continue Fluticasone/Vilanterol or formulary equivalent (6) CAD (coronary artery disease): Plan: Patient reports history of NH at age 38. She reports having a catheterization 6 months after and was told that she had normal coronary arteries. No stents. -Continue Atorvastatin (7) GERD (gastroesophageal reflux disease): Plan: Chronic. Stable -Continue Protonix (8) Cardiomyopathy: Plan: Patient with history of mildly reduced EF and apical akinesis per routine echo in October 2021 -Repeat echo ordered -Cardiology consultation appreciated (9) Paroxysmal atrial fibrillation: Plan: Presently in sinus rhythm in conduction delay. Pre-existing LBBB -Continue Nebivolol -Monitor (10) Dyslipidemia: Plan: Chronic -Continue Atorvastatin F/E/N - Heplock. Monitor electrolytes and replete as needed. AHA/CC diet as tolerated Ppx - Heparin Code - Full per discussion with patient Dispo -Admit to PCU History of Present Illness Chief Complaint: s/p cardiac arrest Primary Care Provider: Nuria Turner MD Nata Sousa is a pleasant 77yo female with history of HTN, HLP, DM, CKD- IV, CAD s/p NH at age 38, HFrEF (moderate LV systolic dysfunction, mild concentric LVH, Akinesis of the LV apex and distal inferior segment, mild LA dilation, mild AR, TR, Trace MR per echo 10/07/2021) presenting from clinic after sustaining a cardiac arrest. Patient was having a routine outpatient echocardiogram performed with administration of dye. She remembers being told that the dye would only be in her system for 5 minutes, then she recalls becoming nauseated then waking up with people working on her. She reportedly had agonal breathing and went asystolic. She received 2 minutes of CPR with ROSC. No shocks or additional ACLS medications given. She was administered 50mg IV Benadryl by EMS and brought to the ER. Patient presently complaining of chest soreness with movement and breathing. Otherwise has no complaints. Specifically denies chest pain, palpitations, dizziness, cough, SOB, abdominal pain, nausea, vomiting, constipation. She recently had Rhinovirus and had bronchitis but reports that she has recovered from this. No recent medication changes. She did take her AM medications as prescribed. She recalls history of an allergic reaction with IV contrast dye in the past during a CT scan. Has never received dye with an echocardiogram before. ER Course: Zofran 4mg IV Morphine 4mg IV NSS x 500mL Allergies Allergy/AdvReac Type Severity Reaction Status Date / Time Iodinated Contrast Media Allergy Unknown HIVES, Verified 10/29/22 10:32 ITCHING Definity AdvReac Severe Unresponsiv Uncoded 11/26/22 12:22 e Home Medications Medication Instructions Recorded Confirmed Type ferrous sulfate 325 mg (65 mg 325 mg PO BID ##0 04/01/17 10/29/22 History iron) tablet multivitamin 1 tab PO QPM #0 tabs 04/01/17 10/29/22 History calcium carbonate 600 mg-vitamin 1 tab PO QPM ##0 12/14/17 10/29/22 History D3 10 mcg (400 unit) chewable tablet (Calcium 600 with Vitamin D3) chromium picolinate 1,000 mcg 1,000 mcg PO QPM 10/27/18 10/29/22 History tablet dorzolamide 2 % eye drops 1 drp ophthalmic (eye) BID ##0 02/15/19 10/29/22 History blood sugar diagnostic (OneTouch #200 ea 06/26/20 10/29/22 Rx Ultra Blue Test Strip) blood-glucose meter (OneTouch #1 ea 06/26/20 10/29/22 Rx Ultra2 Meter kit) atorvastatin 20 mg tablet 20 mg PO QAM 12/11/21 10/29/22 History brimonidine 0.15 % eye drops 1 drp OPB BID 12/11/21 10/29/22 History sitagliptin phosphate 50 1 tab PO QAM #90 tabs 03/23/22 10/29/22 Rx mg-metformin 500 mg tablet (Janumet) inhalational spacing device #1 ea 04/01/22 10/29/22 Rx (Aerochamber Plus Z Stat spacer) metformin 500 mg tablet,extended 1,000 mg PO QPM #180 tabs 04/09/22 10/29/22 Rx release 24hr pantoprazole 40 mg tablet,delayed See Rx Instructions .Route 07/06/22 10/29/22 Rx release .COMPLEX #90 tabs fluticasone furoate 200 1 inh inhalation QPM #90 ea 07/16/22 10/29/22 Rx mcg-vilanterol 25 mcg/dose inhalation powder (Breo Ellipta) amlodipine 5 mg tablet (Norvasc) 5 mg PO QAM #90 tabs 07/21/22 10/29/22 Rx torsemide 10 mg tablet 10 mg PO UD PRN ANKLE SWELLING 09/29/22 10/29/22 Rx #90 tabs nebivolol 10 mg tablet (Bystolic) 10 mg PO DAILY #90 tabs 10/05/22 10/29/22 Rx albuterol sulfate 90 mcg/actuation 2 puff inhalation Q6H PRN 10/19/22 10/29/22 Rx aerosol inhaler (Ventolin HFA) Shortness Of Breath Or Wheezing #1 inhaler triamcinolone acetonide 40 mg/mL 60 mg (1.5 mL) IM DAILY #1.5 mL 10/27/22 10/29/22 Rx suspension for injection (Kenalog) Past Med/Surg History Medical History (Updated 11/26/22 @ 12:35 by Rosalie Jimenez DO) Acute bronchospasm LLUVIA (acute kidney injury) Anemia FOLLOWS HEMATOLOGY, AJALA Asthma Asthma exacerbation Atrial fibrillation with rapid ventricular response HX AFIB WHILE HOSPITALIZED WITH COVID 19 ([facility] , YRS AGO) - UPON D/C HEART MONITOR WORN...FELT AFIB WAS D/T COVID AT THAT TIME - NO RE-OCCURENCE Barretts esophagus REASON FOR UPCOMING PROCEDURE TO F/U ON CKD (chronic kidney disease), stage III PT NOT SURE DETAILS COVID-19 Dyslipidemia Elbow fracture, right Fever Glaucoma HFrEF (heart failure with reduced ejection fraction) History of obstructive sleep apnea HX + SLEEP APNEA TEST, RE-TESTED AND WAS (-) Hypertension Murmur SOMETIMES DETECTED/FOLLOWS DR HACKETT - ANNUAL ECHOCARDIOGRAMS Myocardial Infarction AGE 38 Osteoarthritis Osteopenia Personal history of COVID-19 Pneumonia Pulmonary nodules/lesions, multiple Scattered 5mm nodules on CT Chest 08/2022 RSV bronchitis Type 2 diabetes mellitus Surgical History Hip fracture requiring operative repair right pinning and screws History of cardiac cath AGE 38 ...NH...[facility] /NO STENT(S) History of cataract surgery BOTH History of colonoscopy History of esophagogastroduodenoscopy (EGD) History of tubal ligation Family History Mother FHx: cancer Cancer Family/Other Asthma Brother Diabetes Brother Diabetes Denies family history of Ovarian cancer Prostate cancer Myocardial infarction Lung cancer Colorectal cancer Social History Smoking Status: Never smoker Second Hand Exposure: No; Do You Dip or Chew Tobacco: No; Hx Alcohol Use: No Hx Substance Use: No Preferred Language: Maori Communication Ability: Effective Visual Impairment: Limited Hearing Ability: Normal Court Messenger Required: No Beliefs That Will Affect Care: None marital status: Current Living Situation: Spouse current occupational status: retired Feels Safe at Home: Yes Childhood Exposure to Second-Hand Smoke: Yes caffeine: Yes Dental Care, Regularly: Yes Physical Activity Frequency: 3-4 Times per Week Seatbelt Use: always Sunscreen Use: No Assistive Devices: None Review of Systems Review of Systems: All systems reviewed & are unremarkable except as noted in HPI & below Physical Exam Physical Exam: General: patient resting comfortably, NAD, non-toxic in appearance, AA&O x 4 Skin: warm, dry, intact, no rashes or lesions HEENT: NC/AT, PERRL, EOMI, anicteric sclera, conjunctiva without injection, external ear normal to inspection and nontender, nares patent, moist mucus membranes, dentition intact, no oropharyngeal lesions, neck supple, trachea midline, no LAD, no thyromegaly, no JVD Heart: +S1/S2, regular, 3/6 murmur, chest wall tenderness to palpation, pacer pads present on chest Lungs: equal air entry bilaterally, no rales/rhonchi/wheezes, normal chest wall mechanics with no crepitus Abd: +BS, soft, NT/ND, no masses/organomegaly/ascites Ext: warm, 2+ pulses in UE/LE bilaterally, no clubbing/cyanosis or edema Neuro: nonfocal, patient AA&O x 4, speech intact, no facial droop, moving all extremities on command with equal strength 5/5 Results & Data Results & Data Vital Signs (Past 12 Hours) Vital Signs Pulse Pulse Resp BP BP Pulse Ox O2 Del Method 11/26/22 11:32 76 18 96 11/26/22 11:18 93 11/26/22 11:00 16 95 11/26/22 10:48 75 15 96 11/26/22 10:48 172/83 H 11/26/22 10:46 76 14 97 11/26/22 11:46 94 Nasal Cannula 11/26/22 11:45 76 14 133/100 91 Room Air 11/26/22 10:55 94 Room Air 11/26/22 10:47 76 11/26/22 10:44 75 24 172/83 H 95 Room Air O2 Flow Rate 11/26/22 11:32 11/26/22 11:18 11/26/22 11:00 11/26/22 10:48 11/26/22 10:48 11/26/22 10:46 11/26/22 11:46 4 11/26/22 11:45 11/26/22 10:55 11/26/22 10:47 11/26/22 10:44 Laboratory Results Laboratory Results WBC 7.99 K/ul (4.8-10.8) 11/26/22 10:55 RBC 3.71 M/uL (4.20-5.40) L 11/26/22 10:55 Hgb 11.0 g/dl (12.0-16.0) L 11/26/22 10:55 POC Hgb 11.6 g/dl (12.0-16.0) L 11/26/22 11:03 Hct 34.0 % (37.0-47.0) L 11/26/22 10:55 POC Hct 34 % (37-47) L 11/26/22 11:03 MCV 91.6 fL (80.0-100.0) 11/26/22 10:55 MCH 29.6 pg (25.0-34.0) 11/26/22 10:55 MCHC 32.4 g/dL (32.0-36.0) 11/26/22 10:55 RDW Std Deviation 49.4 fL (36.4-46.3) H 11/26/22 10:55 RDW Coeff of Aman 14.6 % (11.5-14.5) H 11/26/22 10:55 Plt Count 193 K/uL (130-400) 11/26/22 10:55 MPV 11.0 fL (9.4-12.4) 11/26/22 10:55 Immature Gran % (Auto) 5.4 % 11/26/22 10:55 Neut % (Auto) 73.6 % 11/26/22 10:55 Lymph % (Auto) 18.6 % 11/26/22 10:55 [place] % (Auto) 1.8 % 11/26/22 10:55 Eos % (Auto) 0.3 % 11/26/22 10:55 Baso % (Auto) 0.3 % 11/26/22 10:55 Neut # (Auto) 5.89 K/uL (1.40-6.50) 11/26/22 10:55 Lymph # (Auto) 1.49 K/uL (1.2-3.4) 11/26/22 10:55 [place] # (Auto) 0.14 K/uL (0.11-0.59) 11/26/22 10:55 Eos # (Auto) 0.02 K/uL (0-0.50) 11/26/22 10:55 Baso # (Auto) 0.02 K/uL (0-0.2) 11/26/22 10:55 Immature Gran # (Auto) 0.43 K/uL (0.01-0.20) H 11/26/22 10:55 VBG pH 7.27 (7.36-7.41) L 11/26/22 10:55 VBG pCO2 49 mmHg (38-50) 11/26/22 10:55 VBG pO2 39 mmHg 11/26/22 10:55 VBG HCO3 23 mmol/L 11/26/22 10:55 VBG O2 Saturation 61.9 % 11/26/22 10:55 VBG Base Excess -4.7 mEq/L 11/26/22 10:55 POC Sodium 142 mmol/L (135-144) 11/26/22 11:03 Sodium 140 mmol/L (136-145) 11/26/22 10:55 POC Potassium 4.3 mmol/L (3.3-5.0) 11/26/22 11:03 Potassium 4.2 mmol/L (3.5-5.1) 11/26/22 10:55 POC Chloride 108 mmol/L (101-112) 11/26/22 11:03 Chloride 108 mmol/L (98-107) H 11/26/22 10:55 Carbon Dioxide 24 mmol/L (21-32) 11/26/22 10:55 POC Total CO2 22 mmol/L (24-31) L 11/26/22 11:03 Anion Gap 8 (3-11) 11/26/22 10:55 POC Anion Gap 17.0 mmol/L (16-25) 11/26/22 11:03 POC BUN 30 mg/dl (7-18) H 11/26/22 11:03 BUN 32 mg/dl (6-23) H 11/26/22 10:55 Creatinine 1.76 mg/dl (0.6-1.2) H 11/26/22 10:55 POC Creatinine 1.9 mg/dl (0.6-1.3) H 11/26/22 11:03 Est Cr Clr Drug Dosing 29.2 ml/min 11/26/22 10:55 Est GFR ( Amer) 32.0 ml/min 11/26/22 10:55 Est GFR (Non-Af Amer) 27.6 ml/min 11/26/22 10:55 BUN/Creatinine Ratio 18.2 (10-20) 11/26/22 10:55 Glucose 156 mg/dl (70-99(Fasting)) H 11/26/22 10:55 POC Glucose (other) 160 mg/dl (70-99) H 11/26/22 11:03 Calcium 9.7 mg/dl (8.6-10.3) 11/26/22 10:55 POC Ioniz Calcium Ya 1.26 mmol/l (1.12-1.32) 11/26/22 11:03 Total Bilirubin 0.7 mg/dl (0.2-1.0) 11/26/22 10:55 AST 151 U/L (13-39) H 11/26/22 10:55 ALT 111 U/L (7-52) H 11/26/22 10:55 Alkaline Phosphatase 59 U/L (34-104) 11/26/22 10:55 Troponin I High Sens 14.8 pg/ml (0-14) H 11/26/22 10:55 Total Protein 7.4 gm/dl (6.0-8.3) 11/26/22 10:55 Albumin 4.0 gm/dl (3.4-5.0) 11/26/22 10:55 Globulin 3.4 gm/dl (2.5-4.0) 11/26/22 10:55 Albumin/Globulin Ratio 1.2 (0.9-2) 11/26/22 10:55 Lipase 67 U/L (11-82) 11/26/22 10:[address] 11/26/22 10:54 CT head/brain wo con CLINICAL HISTORY: Cardiac arrest status post bubble study Technique: Contiguous axial CT images of the head were acquired from the base of the skull to the vertex without intravenous contrast administration. Images were viewed in brain, subdural and bone windows. Automated dose lowering techniques and/or adjustment according to patient size were utilized for this exam. Comparison: Comparison is made to CT head 01/02/2021 Findings: Areas of decreased attenuation are present in the periventricular and subcortical white matter bilaterally consistent with small vessel ischemic disease. Generalized cerebral atrophy with commensurate enlargement of the ventricles, sulci, and cisterns is also present. There is no acute intracranial hemorrhage or evidence of acute territorial infarction. No shift of the midline structures, mass effect, or extra-axial abnormalities are shown. Atherosclerotic calcifications are present in the intracranial segments of the internal carotid arteries. Imaged portions of the paranasal sinuses and mastoid air cells are clear. The orbits appear normal. There are no acute fractures of the calvaria or scalp swelling. Hyperostosis frontalis is incidentally noted. Impression: No acute intracranial hemorrhage, no evidence of acute territorial infarction or other acute intracranial disease process. ACT 112: Negative or not required by law. Electronically signed by: Jose Armando Berry M.D. 11/26/2022 11:19 AM Chest X-Ray 11/26/22 10:55 XR chest 1V portable CLINICAL HISTORY: Chest pain, nonspecific TECHNIQUE: Single frontal radiograph of the chest was obtained. Comparison: Comparison is made to chest radiograph 10/19/2022 FINDINGS: No lines and tubes are seen. Cardiomegaly is noted. The aortic arch is calcified. Prominence and cephalization of the vasculature is seen. Interstitial opacities are noted which may represent fibrotic change versus interstitial edema. No evidence of pleural effusion or pneumothorax. IMPRESSION: Cardiomegaly and mild pulmonary edema. ACT 112: Negative or not required by law. Electronically signed by: Jose Armando Berry M.D. 11/26/2022 11:35 AM ECG Additional Comments: EKG with NSR at 74, left axis deviation, TI=480, IEZ=597, EYq=646, non-specific intraventricular conduction block. Patient with pre-existing LBBB Code Status & VTE Plan VTE Prophylaxis Plan VTE Prophylaxis will be ordered: Yes PG Care Time/CCT Total # of Minutes Spent Total Time Spent with Patient: Total time spent is greater than 50% in coordination of care (as documented) at patient's floor/unit and/or counseling patient: Coding Level of Care Code 19877 INT INP/OBS CARE MIN Diagnoses History of sudden cardiac arrest successfully resuscitated Z86.74 Hypertension I10 Hypertension type: essential hypertension CKD (chronic kidney disease), stage III N18.3 Type 2 diabetes mellitus E11.22; N18.3 Chronic kidney disease stage: stage 3 (moderate) Diabetes mellitus complication detail: with chronic kidney disease Diabetes mellitus complication status: with kidney complications 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 transplanted heart: [place] heart GERD (gastroesophageal reflux disease) K21.9 Esophagitis presence: esophagitis presence not specified Cardiomyopathy I25.5 Cardiomyopathy type: ischemic Paroxysmal atrial fibrillation I48.0 Dyslipidemia E78.5 (2) Hypertension Hypertension type: essential hypertension Qualified Code(s): I10 - Essential (primary) hypertension (4) Type 2 diabetes mellitus Chronic kidney disease stage: stage 3 (moderate) Diabetes mellitus complication detail: with chronic kidney disease Diabetes mellitus complication status: with kidney complications Diabetes mellitus snf insulin use: without watermelon inspector use Qualified Code(s): E11.22 - Type 2 diabetes mellitus with diabetic chronic kidney disease; N18.3 - Chronic kidney disease, stage 3 (moderate) (5) Asthma Asthma complication type: unspecified Asthma persistence: unspecified Asthma severity: unspecified severity Qualified Code(s): J45.909 - Unspecified asthma, uncomplicated (6) CAD (coronary artery disease) Associated angina: without angina Coronary Disease-Associated Artery/Lesion type: unspecified vessel or lesion type [place] vs. transplanted heart: [place] heart Qualified Code(s): I25.10 - Atherosclerotic heart disease of [place] coronary artery without angina pectoris (7) GERD (gastroesophageal reflux disease) Esophagitis presence: esophagitis presence not specified Qualified Code(s): K21.9 - Gastro-esophageal reflux disease without esophagitis (8) Cardiomyopathy Cardiomyopathy type: ischemic Qualified Code(s): I25.5 - Ischemic cardiomyopathy
--- NOTE | 2022-11-26 14:10 | Electrocardiogram Report ---
Test Reason : Blood Pressure : / mmHG Vent. Rate : 074 BPM Atrial Rate : 074 BPM P-R Int : 162 ms QRS Dur : 162 ms QT Int : 456 ms P-R-T Axes : 059 -43 139 degrees QTc Int : 506 ms Normal sinus rhythm Left axis deviation Left bundle branch block Minimal voltage criteria for LVH, may be normal variant Abnormal ECG When compared with ECG of 30-MAY-2022 10:42, No significant change Confirmed by Nacho Montelongo ([id number]) on 11/26/2022 2:09:45 PM Referred By: REFERRED SELF Confirmed By:Nacho Montelongo
[2022-11-26] MEDS ORDERED: GLUCAGON FOR INJ 1 MG VIAL SQ PRN (14:39)
[2022-11-26] MEDS ORDERED: GLUCOSE 40% GEL 15 GM TUBE PO PRN (14:39)
[2022-11-26] MEDS ORDERED: ALBUTEROL HFA 8 GM INHALER INH PRN (14:39)
[2022-11-26] MEDS ORDERED: CARBOHYDRATES FOR HYPOGLYCEMIA PO PRN (14:39)
[2022-11-26] MEDS ORDERED: DEXTROSE 50% 50 ML SYRINGE IV PRN (14:39)
[2022-11-26] MEDS ORDERED: GLUCOSE 10 TAB/TUBE PO PRN (14:39)
[2022-11-26] MEDS ORDERED: POLYETHYLENE (MIRALAX) 17 GM PACK PO PRN (14:39)
[2022-11-26] MEDS: oxyCODONE HCL IR 5 MG TAB (IMMEDIATE RELEASE) PO PRN ×2 (15:02→22:45)
[2022-11-26 15:45] LABS: Magnesium 1.3 mg/dl (1.7-2.4); Phosphorus 3.9 mg/dl (2.5-4.9)
[2022-11-26 15:51] LABS: Troponin I High Sensitivity 36.9 pg/ml (0-14)
--- NOTE | 2022-11-26 15:54 | Cardiology Consultation ---
Date of Consultation November 26, 2022 Assessment & Plan (1) Cardiac arrest: -etiology not certain. -no reports in Up-to-Date of cardiac arrest following intravenous Definity. -watch on monitor 24 hours. -trend high sensitivity troponin. -? consider cardiac catheterization. (2) CAD (coronary artery disease): -parent anterior [place] at age 38. -normal coronary arteries following that event. (3) Cardiomyopathy: -mild to moderate left ventricular dysfunction with ejection fraction of 35-40%. -apical akinesis noted on current study. (4) HFrEF (heart failure with reduced ejection fraction): -well compensated at this time. -continue Bystolic and Janumet. -no ACEI/ARB due to renal insufficiency. -uses torsemide on a p.r.n. basis. (5) Aortic valvular disorder: -mild aortic stenosis and aortic insufficiency on current study. History of Present Illness Attending Physician: Rosalie Jimenez DO History of Present Illness Mrs. Sousa is a 77-year-old female admitted today after surviving a cardiac arrest. Of note, patient typically follows with Dr. Hackett in the outpatient setting. The patient was in her usual state of health and was undergoing an echocardiogram in our office. An IV was established and she was given intravenous definity to improve visualization of her left ventricle. She immediately complained of nausea and then became unresponsive. She was pulseless, apneic, and cyanotic. She received approximately 2 minutes of CPR and ROSC was established. She was disoriented 1st, however, is back to normal mentation before leaving the office by ambulance. She does carry a history of coronary artery disease having suffered an anterior [place] at the age of 38. Several months after the event, she underwent a cardiac catheterization at the [facility] which noted normal coronary arteries. She also has a history of moderate left ventricular dysfunction. The echocardiogram completed just prior to her arrest noted mild to moderate left ventricular systolic dysfunction with ejection fraction 35-40%. There was apical akinesis along with mild aortic stenosis and mild aortic insufficiency. This was unchanged from prior study. Currently, patient is resting comfortably in bed without complaints. Past medical and surgical history 1. Coronary artery disease-see above 2. Anterior [place]-age 38 3. Mild to moderate left ventricular dysfunction 4. Chronic systolic CHF 5. LBBB 6. Paroxysmal atrial fibrillation-with COVID infection, June 2020 7. Hypertension 8. Hypercholesterolemia 9. Mild aortic stenosis 10. Mild aortic insufficiency 11. Diabetes mellitus 12. Chronic renal failure 13. Asthma 14. GERD 15. Casper's esophagus 16. Obstructive sleep apnea 17. DJD 18. A lock open 19. History of retinal vein occlusion 20. Hip ORIF 21. Bilateral intra-ocular lens implants 22. Tubal ligation Social history and lives with her No tobacco alcohol Family history No early coronary artery disease Review of systems A 10 point review systems was undertaken and negative except that described above. Allergies Allergy/AdvReac Type Severity Reaction Status Date / Time Iodinated Contrast Media Allergy Unknown HIVES, Verified 10/29/22 10:32 ITCHING Definity AdvReac Severe Unresponsiv Uncoded 11/26/22 12:22 e Home Medications Medication Instructions Recorded Confirmed Type ferrous sulfate 325 mg (65 mg 325 mg PO BID ##0 04/01/17 10/29/22 History iron) tablet multivitamin 1 tab PO QPM #0 tabs 04/01/17 10/29/22 History calcium carbonate 600 mg-vitamin 1 tab PO QPM ##0 12/14/17 10/29/22 History D3 10 mcg (400 unit) chewable tablet (Calcium 600 with Vitamin D3) chromium picolinate 1,000 mcg 1,000 mcg PO QPM 10/27/18 10/29/22 History tablet dorzolamide 2 % eye drops 1 drp ophthalmic (eye) BID ##0 02/15/19 10/29/22 History blood sugar diagnostic (OneTouch #200 ea 06/26/20 10/29/22 Rx Ultra Blue Test Strip) blood-glucose meter (OneTouch #1 ea 06/26/20 10/29/22 Rx Ultra2 Meter kit) atorvastatin 20 mg tablet 20 mg PO QAM 12/11/21 10/29/22 History brimonidine 0.15 % eye drops 1 drp OPB BID 12/11/21 10/29/22 History sitagliptin phosphate 50 1 tab PO QAM #90 tabs 03/23/22 10/29/22 Rx mg-metformin 500 mg tablet (Janumet) inhalational spacing device #1 ea 04/01/22 10/29/22 Rx (Aerochamber Plus Z Stat spacer) metformin 500 mg tablet,extended 1,000 mg PO QPM #180 tabs 04/09/22 10/29/22 Rx release 24hr pantoprazole 40 mg tablet,delayed See Rx Instructions .Route 07/06/22 10/29/22 Rx release .COMPLEX #90 tabs fluticasone furoate 200 1 inh inhalation QPM #90 ea 07/16/22 10/29/22 Rx mcg-vilanterol 25 mcg/dose inhalation powder (Breo Ellipta) amlodipine 5 mg tablet (Norvasc) 5 mg PO QAM #90 tabs 07/21/22 10/29/22 Rx torsemide 10 mg tablet 10 mg PO UD PRN ANKLE SWELLING 09/29/22 10/29/22 Rx #90 tabs nebivolol 10 mg tablet (Bystolic) 10 mg PO DAILY #90 tabs 10/05/22 10/29/22 Rx albuterol sulfate 90 mcg/actuation 2 puff inhalation Q6H PRN 10/19/22 10/29/22 Rx aerosol inhaler (Ventolin HFA) Shortness Of Breath Or Wheezing #1 inhaler triamcinolone acetonide 40 mg/mL 60 mg (1.5 mL) IM DAILY #1.5 mL 10/27/22 10/29/22 Rx suspension for injection (Kenalog) Patient History Medical History (Updated 11/26/22 @ 15:53 by Nacho Montelongo MD) Acute bronchospasm LLUVIA (acute kidney injury) Anemia FOLLOWS HEMATOLOGY, AJALA Asthma Asthma exacerbation Atrial fibrillation with rapid ventricular response HX AFIB WHILE HOSPITALIZED WITH COVID 19 ([facility] , YRS AGO) - UPON D/C HEART MONITOR WORN...FELT AFIB WAS D/T COVID AT THAT TIME - NO RE-OCCURENCE Barretts esophagus REASON FOR UPCOMING PROCEDURE TO F/U ON CKD (chronic kidney disease), stage III PT NOT SURE DETAILS COVID-19 Dyslipidemia Elbow fracture, right Fever Glaucoma HFrEF (heart failure with reduced ejection fraction) History of obstructive sleep apnea HX + SLEEP APNEA TEST, RE-TESTED AND WAS (-) Hypertension Murmur SOMETIMES DETECTED/FOLLOWS DR HACKETT - ANNUAL ECHOCARDIOGRAMS Myocardial Infarction AGE 38 Osteoarthritis Osteopenia Personal history of COVID-19 Pneumonia Pulmonary nodules/lesions, multiple Scattered 5mm nodules on CT Chest 08/2022 RSV bronchitis Type 2 diabetes mellitus Surgical History Hip fracture requiring operative repair right pinning and screws History of cardiac cath AGE 38 ...[place] /NO STENT(S) History of cataract surgery BOTH History of colonoscopy History of esophagogastroduodenoscopy (EGD) History of tubal ligation Family History Mother FHx: cancer Cancer Family/Other Asthma Brother Diabetes Brother Diabetes Denies family history of Ovarian cancer Prostate cancer Myocardial infarction Lung cancer Colorectal cancer Social History Smoking Status: Never smoker Second Hand Exposure: No; Do You Dip or Chew Tobacco: No; Hx Alcohol Use: No Hx Substance Use: No Preferred Language: Occitan Communication Ability: Effective Visual Impairment: Limited Hearing Ability: Normal Host Hostess Required: No Beliefs That Will Affect Care: None marital status: Current Living Situation: Spouse current occupational status: retired Feels Safe at Home: Yes Childhood Exposure to Second-Hand Smoke: Yes caffeine: Yes Dental Care, Regularly: Yes Physical Activity Frequency: 3-4 Times per Week Seatbelt Use: always Sunscreen Use: No Assistive Devices: Glasses and Oxygen - Continuous Physical Exam Physical Exam: In general this is a well-developed well-nourished white female no acute distress. HEENT exam is negative. Neck is supple with full carotid upstrokes. No obvious bruits. Jugular venous pressure is flat at 90. There is no thyromegaly. Cardiovascular exam reveals a regular rhythm with a 2/6 basal systolic ejection murmur. No S3 or S4. Lungs are clear without rales, rhonchi or wheezes. Abdomen is soft without bruits. Extremities reveal intact radial artery pulses bilaterally. There is trace pretibial edema. Results & Data Vital Signs (Past 12 Hours) Vital Signs Pulse Pulse Resp BP BP Pulse Ox Pulse Ox 11/26/22 14:57 98 11/26/22 14:54 11/26/22 14:40 69 18 157/96 H 98 11/26/22 13:30 69 21 98 11/26/22 13:15 67 22 99 11/26/22 13:02 69 18 99 11/26/22 12:45 70 17 98 11/26/22 12:30 72 18 90 11/26/22 12:15 73 19 94 11/26/22 11:47 77 22 97 11/26/22 13:00 66 17 156/85 H 99 11/26/22 11:32 76 18 96 11/26/22 11:18 93 11/26/22 11:00 16 95 11/26/22 10:48 75 15 96 11/26/22 10:48 172/83 H 11/26/22 10:46 76 14 97 11/26/22 11:46 94 11/26/22 11:45 76 14 133/100 91 11/26/22 10:55 94 11/26/22 10:47 76 11/26/22 10:44 75 24 172/83 H 95 O2 Del Method O2 Del Method O2 Flow Rate O2 Flow Rate 11/26/22 14:57 Nasal Cannula 4 11/26/22 14:54 Nasal Cannula 4 11/26/22 14:40 Nasal Cannula 4 11/26/22 13:30 11/26/22 13:15 11/26/22 13:02 11/26/22 12:45 11/26/22 12:30 11/26/22 12:15 11/26/22 11:47 11/26/22 13:00 11/26/22 11:32 11/26/22 11:18 11/26/22 11:00 11/26/22 10:48 11/26/22 10:48 11/26/22 10:46 11/26/22 11:46 Nasal Cannula 4 11/26/22 11:45 Room Air 11/26/22 10:55 Room Air 11/26/22 10:47 11/26/22 10:44 Room Air Laboratory Results CBC notes hemoglobin 11.0, hematocrit 34.0, white count 7.99, and platelet count [id number]. Electrolytes note a sodium of 142, potassium 4.3, chloride 108, bicarb 22, BUN 32, creatinine 1.76, and glucose of 156. High sensitivity troponin is 14.8. AST is elevated 151 as is the ALT 111. Diagnostic Findings EKG notes sinus rhythm with a left axis deviation and a complete left bundle- branch block. cardiac monitor technician has been benign. PG Care Time/CCT Total # of Minutes Spent Total Time Spent with Patient: Total time spent is greater than 50% in coordination of care (as documented) at patient's floor/unit and/or counseling patient: Coding Level of Care Code 52198 INT INP/OBS CARE MIN Diagnoses Cardiac arrest I46.9 CAD (coronary artery disease) I25.10 Coronary Disease-Associated Artery/Lesion type: unspecified vessel or lesion type [place] vs. transplanted heart: [place] heart Associated angina: without angina Cardiomyopathy I25.5 Cardiomyopathy type: ischemic HFrEF (heart failure with reduced ejection fraction) I50.20 Aortic valvular disorder I35.9 (2) CAD (coronary artery disease) Coronary Disease-Associated Artery/Lesion type: unspecified vessel or lesion type [place] vs. transplanted heart: [place] heart Associated angina: without angina Qualified Code(s): I25.10 - Atherosclerotic heart disease of [place] coronary artery without angina pectoris (3) Cardiomyopathy Cardiomyopathy type: ischemic Qualified Code(s): I25.5 - Ischemic cardiomyopathy
[2022-11-26] MEDS: INSULIN ASPART PER UNIT CHARGE SC SCH ×2 (16:37→19:48)
[2022-11-26] MEDS: PANTOprazole 40 MG TAB PO SCH (19:50)
[2022-11-26] MEDS: HEPARIN SOD 5,000 UNIT/0.5 ML VIAL SQ SCH (19:51)
[2022-11-26] MEDS: LANTUS PER UNIT CHARGE SQ SCH (19:52)
[2022-11-26] MEDS: DORZOLAMIDE HCL 2% OPH SOLN 10 ML BTL OP SCH (19:52)
[2022-11-26] MEDS: BRIMONIDINE TARTRATE-P 0.15% 5 ML BTL OPB SCH (19:52)
[2022-11-26] MEDS: FLUTICASONE/VILANTEROL 200/25MCG 14 PUFFS/INHALER INH SCH (22:40)
[2022-11-27 03:08] LABS: Hematocrit (blood only) 32.5 % (37.0-47.0); Hemoglobin 10.6 g/dl (12.0-16.0); Mean Corpuscular Hemoglobin 29.8 pg (25.0-34.0); Mean Corpuscular Hgb Conc 32.6 g/dL (32.0-36.0); Mean Corpuscular Volume 91.3 fL (80.0-100.0); Platelet Count 174 K/uL (130-400); RDW Coefficient of Variation 14.7 % (11.5-14.5); RDW Standard Deviation 49.1 fL (36.4-46.3); Red Blood Count 3.56 M/uL (4.20-5.40); White Blood Count 8.46 K/ul (4.8-10.8)
[2022-11-27 03:25] LABS: BUN Creatinine Ratio 19.3 (10-20); Creatinine Clr Calc Pharmacy 26.7 ml/min; Est GFR (African American) 28.8 ml/min; Est GFR (Non-African American) 24.9 ml/min; Potassium 4.6 mmol/L (3.5-5.1)
[2022-11-27] MEDS: oxyCODONE HCL IR 5 MG TAB (IMMEDIATE RELEASE) PO PRN ×3 (06:06→23:47)
[2022-11-27] MEDS ORDERED: NON-FORMULARY MEDICATION (Nebivolol [Bystolic] 10 mg tablet) PO SCH (09:00)
[2022-11-27] MEDS: amLODIPine BESYLATE 5 MG TAB PO SCH (09:40)
[2022-11-27] MEDS: BRIMONIDINE TARTRATE-P 0.15% 5 ML BTL OPB SCH ×2 (09:41→20:44)
[2022-11-27] MEDS: ATORVASTATIN 20 MG TAB PO SCH (09:41)
[2022-11-27] MEDS: HEPARIN SOD 5,000 UNIT/0.5 ML VIAL SQ SCH ×2 (09:42→20:43)
[2022-11-27] MEDS: DORZOLAMIDE HCL 2% OPH SOLN 10 ML BTL OP SCH ×2 (09:42→20:44)
[2022-11-27] MEDS: METOPROLOL TARTRATE 50 MG TAB PO SCH ×2 (09:42→20:42)
[2022-11-27 09:46] LABS: Albumin Globulin Ratio 1.2 (0.9-2); Albumin Level 3.7 gm/dl (3.4-5.0); Bilirubin,Total 1.3 mg/dl (0.2-1.0); Calcium 8.9 mg/dl (8.6-10.3); Creatinine Clr Calc Pharmacy 27.8 ml/min; Est GFR (African American) 30.9 ml/min; Est GFR (Non-African American) 26.7 ml/min; Globulin 3.2 gm/dl (2.5-4.0); Magnesium 1.2 mg/dl (1.7-2.4); Potassium 4.2 mmol/L (3.5-5.1); Total Protein 6.9 gm/dl (6.0-8.3)
[2022-11-27] MEDS: INSULIN ASPART PER UNIT CHARGE SC SCH ×4 (09:49→20:42)
[2022-11-27] MEDS: LANTUS PER UNIT CHARGE SQ SCH ×2 (09:51→20:43)
[2022-11-27 10:04] LABS: D Dimer 11220 ug/L FEU (0-500)
[2022-11-27] MEDS: MAGNESIUM SULFATE / D5W 1 GM/100 ML BAG IV SCH ×2 (10:49→14:29)
--- NOTE | 2022-11-27 13:33 | Cardiology Progress Note ---
Date of Service November 27, 2022 Assessment & Plan (1) Cardiac arrest: Plan: -etiology not certain. -high sensitivity troponin minimally elevated. -D-dimer elevated at 11,220. -V/Q scan pending. (2) CAD (coronary artery disease): Plan: -apparent anterior [place] at age 38. -normal coronary arteries following that event. (3) Cardiomyopathy: Plan: -mild to moderate left ventricular dysfunction with ejection fraction of 35-40%. -apical akinesis noted on current study. (4) HFrEF (heart failure with reduced ejection fraction): Plan: -well compensated at this time. -continue Bystolic and Janumet. -no ACEI/ARB due to renal insufficiency. -uses torsemide on a p.r.n. basis. (5) Aortic valvular disorder: Plan: -mild aortic stenosis and aortic insufficiency on current study. Admission and Anticipated Discharge Date Admission Date: November 26, 2022 Subjective The patient is resting comfortably in the bedside chair complaining of musculoskeletal chest discomfort. Physical Exam Physical Exam: In general this is a well-developed well-nourished white female no acute distress. HEENT exam is negative. Neck is supple with full carotid upstrokes. No obvious bruits. Jugular venous pressure is flat at 90. There is no thyromegaly. Cardiovascular exam reveals a regular rhythm with a 2/6 basal s ystolic ejection murmur. No S3 or S4. Lungs are clear without rales, rhonchi or wheezes. Abdomen is soft without bruits. Extremities reveal intact radial artery pulses bilaterally. There is trace pretibial edema. Results & Data Vital Signs (Past 12 Hours) Vital Signs Temp Pulse Pulse Resp BP Pulse Ox O2 Del Method 11/27/22 11:56 37.3 C 57 L 18 123/59 L 91 Room Air 11/27/22 08:11 68 11/27/22 08:09 36.9 C 60 18 99/62 L 91 Room Air 11/27/22 03:00 36.8 C 69 20 143/73 H 90 Nasal Cannula Laboratory Results High sensitivity troponin on presentation was 14 8 with follow-up values of 36.9, with 66.2, and 65.8. Diagnostic Findings clinical research monitor is benign. PG Care Time/CCT Total # of Minutes Spent Total Time Spent with Patient: Total time spent is greater than 50% in coordination of care (as documented) at patient's floor/unit and/or counseling patient: Coding Level of Care Code 10578 SUB INP/OBS CARE 50MIN Diagnoses Cardiac arrest I46.9 CAD (coronary artery disease) I25.10 Coronary Disease-Associated Artery/Lesion type: unspecified vessel or lesion type [place] vs. transplanted heart: [place] heart Associated angina: without angina Cardiomyopathy I25.5 Cardiomyopathy type: ischemic HFrEF (heart failure with reduced ejection fraction) I50.20 Aortic valvular disorder I35.9 (2) CAD (coronary artery disease) Coronary Disease-Associated Artery/Lesion type: unspecified vessel or lesion type [place] vs. transplanted heart: [place] heart Associated angina: without angina Qualified Code(s): I25.10 - Atherosclerotic heart disease of [place] coronary artery without angina pectoris (3) Cardiomyopathy Cardiomyopathy type: ischemic Qualified Code(s): I25.5 - Ischemic cardiomyopathy
--- NOTE | 2022-11-27 13:36 | Nuclear Medicine Report ---
NUCLEAR MEDICINE PERFUSION STUDY CLINICAL HISTORY: elevated d-dimer, cardiac arrest, CrCl <30 COMPARISON STUDY: Chest radiograph November 26, 2022. Chest CT September 02, 2022. TECHNIQUE: 5.3 mCi of technetium 99m MAA (low particles) was injected IV at 1:00 PM on November 27, 2022. Following injection, imaging of the chest was performed in multiple projections. No ventilation imag ing was performed due to precautions. FINDINGS: Expected radiotracer distribution is noted. There are no segmental defects to suggest pulmo nary embolus. No areas of abnormal radiotracer uptake are noted. IMPRESSION: Low probability for pulmonary embolus. ACT 112: Negative or not required by law. Electronically signed by: Adan Snider M.D. 11/27/2022 1:35 PM
--- NOTE | 2022-11-27 16:15 | Hospitalist Progress Note ---
Date of Service November 27, 2022 Assessment & Plan (1) History of sudden cardiac arrest successfully resuscitated: Plan: s/p asystolic event following administration of echocardiogram dye (Definity contrast) -- 11/26/22. Patient received 2 minutes of CPR with subsequent ROSC. Peak troponin here - 66.2. Echo - EF 40-45% (No change in EF in comparison to 2021 echo); multiple WMAs. Pulmonary HTN - moderate - PAP 40-50mmHg There are case reports of cardiac arrest following Definity contrast but there is still considerable debate over the validity of such reports/studies based on my review of the literature. D-dimer markedly elevated today - see below. H/o anterior wall ND in 1983, but heart cath 6 months later at [facility] was apparently normal by report. Uncertain if any heart cath has been done since then. Appreciate Dr Montelongo's consultation. Awaiting VTE work-up. Continue tele monitoring. ACS felt not to have occurred yesterday. (2) Elevated d-dimer: Plan: 11,000. Dopplers of legs obtained - no DVT. V/Q scan obtained (CTA chest deferred due to contrast allergy and CrCL 20s) -- low prob for PE. Elevated dimer due to the "trauma" of her CPR yesterday? (trauma is a known cause of elevated dimers) Defer on CTA chest for now unless she develops pulmonary symptoms (dyspnea, etc). (3) Chest wall pain: Plan: 2nd CPR. at minimum has chest wall contusions from chest compressions. may have rib fractures. lidoderm patches. ice prn. tylenol prn. could consider dedicated rib series or non-con chest CT to r/o rib fractures. (4) Hypomagnesemia: Plan: severe 2nd to diuretic usage at home? give 3 grams mag sulfate x 1 today; repeat mag level am (5) Abnormal LFTs: Plan: etiology? 2nd to liver irritation from chest compressions? if the abnormal LFTs was due to shock / cardiac arrest the values would be in the hundreds or higher. simply repeat the LFTs in am and go from there. if LFTs remain high or worsen hold statin. (6) Hypertension: Plan: Continue Amlodipine 5mg po daily Continue beta miriam (7) Type 2 diabetes mellitus: Plan: Overall well controlled. Last [id number]=9.6 on 07/21/22. Patient is on Sitagliptin and Metformin as an outpatient. -Hold oral agents -Lantus 5u BID -ISS -Goal blood sugar 110 - 140 (8) Asthma: Plan: no exacerbation at this time -Continue Albuterol PRN -Continue Fluticasone/Vilanterol or formulary equivalent (9) CAD (coronary artery disease): Plan: Patient reports history of ND at age 38. She reports having a catheterization 6 months after and was told that she had normal coronary arteries. Did she have Takotsubo's in 1983? (literature suggests that this condition was not given the formal Takotsubo's name until the so thus perhaps she had Takotsubo's in ?) Either way she remains on Atorvastatin, beta miriam. Is not on anti-platelet agents. see #1 above (10) GERD (gastroesophageal reflux disease): Plan: Continue Protonix (11) Cardiomyopathy: Plan: EF 40-45% chronic systolic CHF etiology of cardiomyopathy uncertain has mild LE edema on exam today along with pulm edema on cxr consider bumex (12) Paroxysmal atrial fibrillation: Plan: remains in NSR continue beta miriam is not on chronic anticoagulation (13) Dyslipidemia: Plan: Continue Atorvastatin (14) Chronic kidney disease, stage IV (severe): Plan: baseline CrCl high 20s repeat BMP am for stability Plan updated at bedside Admission and Anticipated Discharge Date Admission Date: November 26, 2022 Subjective tele overnight wnl she continues with chest wall pain s/p chest compressions yesterday while getting outpatient echo [place] [facility] yesterday the pain is all over the chest but worst adjacent to the sternum on the right side hurts to take deep breaths denies any dyspnea prior to yesterday's event or over the past week did have rhinovirus infection in mid October 2022 with associated bronchitis did not require hospitalization was sick for 1-2 weeks illness was moderate in severity no recent COVID infection no prolonged travel but she & traveled by car to [facility] last weekend no recent surgery no prior h/o VTE has had edema off/on over the last 1-2 weeks Review of Systems Review of Systems: gen - no fevers or chills cv - musculoskeletal chest wall pain, worse with taking deep breaths; + edema pulm - no cough, no congestion, no dyspnea at rest; no BLAIR GI - no abd pain/nausea/emesis Physical Exam Physical Exam: gen - pleasant, NAD, nontoxic, sitting in chair by window neck - no obvious JVD mouth - MMM heart - RRR, s1 s2, 2/6 systolic murmur RUSB lungs - decreased BS bases, mild rales bases, poor airation (doesn't take deep breaths due to chest wall pain) chest - tender to palpation right mid chest abd - soft NT ND BS+ ext - 1+ edema b/l, pulses 2+ b/l Results & Data Results & Data Vital Signs (Past 12 Hours) Vital Signs Temp Pulse Pulse Resp BP Pulse Ox O2 Del Method 11/27/22 15:47 53 L 11/27/22 15:40 36.9 C 55 L 18 110/63 92 Room Air 11/27/22 11:56 37.3 C 57 L 18 123/59 L 91 Room Air 11/27/22 08:11 68 11/27/22 08:09 36.9 C 60 18 99/62 L 91 Room Air Laboratory Results Laboratory Results - last 24 hr 11/26/22 11/26/22 11/26/22 16:23 19:46 20:15 WBC RBC Hgb Hct MCV MCH MCHC RDW Std Deviation RDW Coeff of Aman Plt Count MPV D-Dimer Sodium Potassium Chloride Carbon Dioxide Anion Gap BUN Creatinine Est Cr Clr Drug Dosing Est GFR ( Amer) Est GFR (Non-Af Amer) BUN/Creatinine Ratio Glucose POC Glucose 144 H 134 H Calcium Magnesium Total Bilirubin AST ALT Alkaline Phosphatase Troponin I High Sens 66.2 H* D Total Protein Albumin Globulin Albumin/Globulin Ratio 11/27/22 11/27/22 11/27/22 02:48 02:48 02:48 WBC 8.46 RBC 3.56 L Hgb 10.6 L Hct 32.5 L MCV 91.3 MCH 29.8 MCHC 32.6 RDW Std Deviation 49.1 H RDW Coeff of Aman 14.7 H Plt Count 174 MPV 11.0 D-Dimer Sodium 139 Potassium 4.6 Chloride 107 Carbon Dioxide 23 Anion Gap 9 BUN 37 H Creatinine 1.92 H Est Cr Clr Drug Dosing 26.7 Est GFR ( Amer) 28.8 Est GFR (Non-Af Amer) 24.9 BUN/Creatinine Ratio 19.3 Glucose 129 H POC Glucose Calcium 9.0 Magnesium Total Bilirubin AST ALT Alkaline Phosphatase Troponin I High Sens 65.8 H* Total Protein Albumin Globulin Albumin/Globulin Ratio 11/27/22 11/27/22 11/27/22 08:56 08:56 11:21 WBC RBC Hgb Hct MCV MCH MCHC RDW Std Deviation RDW Coeff of Aman Plt Count MPV D-Dimer 84714 H* Sodium 138 Potassium 4.2 Chloride 106 Carbon Dioxide 23 Anion Gap 9 BUN 38 H Creatinine 1.81 H Est Cr Clr Drug Dosing 27.8 Est GFR ( Amer) 30.9 Est GFR (Non-Af Amer) 26.7 BUN/Creatinine Ratio 21.0 H Glucose 201 H POC Glucose 209 H Calcium 8.9 Magnesium 1.2 L Total Bilirubin 1.3 H D AST 64 H ALT 73 H Alkaline Phosphatase 49 Troponin I High Sens Total Protein 6.9 Albumin 3.7 Globulin 3.2 Albumin/Globulin Ratio 1.2 PG Care Time/CCT Total # of Minutes Spent Total Time Spent with Patient: Total time spent is greater than 50% in coordination of care (as documented) at patient's floor/unit and/or counseling patient: Coding Level of Care Code 85796 SUB INP/OBS CARE 3/50MIN Diagnoses History of sudden cardiac arrest successfully resuscitated Z86.74 Elevated d-dimer R79.89 Chest wall pain R07.89 Hypomagnesemia E83.42 Abnormal LFTs R79.89 Hypertension I10 Hypertension type: essential hypertension Type 2 diabetes mellitus E11.22; N18.3 Chronic kidney disease stage: stage 3 (moderate) Diabetes mellitus complication detail: with chronic kidney disease Diabetes mellitus complication status: with kidney complications Diabetes mellitus prison insulin use: without terminal makeup operator use Asthma J45.909 Asthma complication type: unspecified Asthma persistence: unspecified Asthma severity: unspecified severity CAD (coronary artery disease) I25.10 Associated angina: without angina Coronary Disease-Associated Artery/Lesion type: unspecified vessel or lesion type [place] vs. transplanted heart: [place] heart GERD (gastroesophageal reflux disease) K21.9 Esophagitis presence: esophagitis presence not specified Cardiomyopathy I25.5 Cardiomyopathy type: ischemic Paroxysmal atrial fibrillation I48.0 Dyslipidemia E78.5 Chronic kidney disease, stage IV (severe) N18.4 (6) Hypertension Hypertension type: essential hypertension Qualified Code(s): I10 - Essential (primary) hypertension (7) Type 2 diabetes mellitus Chronic kidney disease stage: stage 3 (moderate) Diabetes mellitus complication detail: with chronic kidney disease Diabetes mellitus complication status: with kidney complications Diabetes mellitus terminal makeup operator insulin use: without prison use Qualified Code(s): E11.22 - Type 2 diabetes mellitus with diabetic chronic kidney disease; N18.3 - Chronic kidney disease, stage 3 (moderate) (8) Asthma Asthma complication type: unspecified Asthma persistence: unspecified Asthma severity: unspecified severity Qualified Code(s): J45.909 - Unspecified asthma, uncomplicated (9) CAD (coronary artery disease) Associated angina: without angina Coronary Disease-Associated Artery/Lesion type: unspecified vessel or lesion type [place] vs. transplanted heart: [place] heart Qualified Code(s): I25.10 - Atherosclerotic heart disease of [place] coronary artery without angina pectoris (10) GERD (gastroesophageal reflux disease) Esophagitis presence: esophagitis presence not specified Qualified Code(s): K21.9 - Gastro-esophageal reflux disease without esophagitis (11) Cardiomyopathy Cardiomyopathy type: ischemic Qualified Code(s): I25.5 - Ischemic cardiomyopathy
[2022-11-27] MEDS: LIDOCAINE 5% 1 PATCH TD SCH (17:10)
--- NOTE | 2022-11-27 17:18 | Ultrasound Report ---
BILATERAL LOWER EXTREMITY VENOUS DOPPLER CLINICAL HISTORY: elevated d-dimer, cardiac arrest bilateral lower extremity venous Doppler ultrasoun d April 14, 2017. COMPARISON STUDY: No previous studies for comparison. TECHNIQUE: Sonography of the deep venous system of the bilateral lower extremities was performed. Co mpression and augmentation were evaluated. FINDINGS: The bilateral common femoral, superficial femoral and popliteal veins were compressible. A ugmentation was normal. Flow was shown within the deep calf vessels. IMPRESSION: No evidence of deep venous thrombus within the bilateral lower extremities. ACT 112: Negative or not required by law. Electronically signed by: Adan Snider M.D. 11/27/2022 5:17 PM
[2022-11-27] MEDS: PANTOprazole 40 MG TAB PO SCH (20:36)
[2022-11-27] MEDS: FLUTICASONE/VILANTEROL 200/25MCG 14 PUFFS/INHALER INH SCH (20:36)
[2022-11-28] MEDS: ACETAMINOPHEN 500 MG TAB PO PRN ×2 (02:51→17:18)
[2022-11-28] MEDS: oxyCODONE HCL IR 5 MG TAB (IMMEDIATE RELEASE) PO PRN ×2 (06:31→13:38)
[2022-11-28 07:25] LABS: Albumin Globulin Ratio 1.1 (0.9-2); Albumin Level 3.5 gm/dl (3.4-5.0); BUN Creatinine Ratio 23.1 (10-20); Bilirubin,Total 1.1 mg/dl (0.2-1.0); Calcium 8.9 mg/dl (8.6-10.3); Creatinine Clr Calc Pharmacy 29.1 ml/min; Est GFR (African American) 32.7 ml/min; Est GFR (Non-African American) 28.2 ml/min; Globulin 3.1 gm/dl (2.5-4.0); Potassium 4.5 mmol/L (3.5-5.1); Total Protein 6.6 gm/dl (6.0-8.3)
[2022-11-28] MEDS: ATORVASTATIN 20 MG TAB PO SCH (08:47)
[2022-11-28] MEDS: amLODIPine BESYLATE 5 MG TAB PO SCH (08:47)
[2022-11-28] MEDS: DORZOLAMIDE HCL 2% OPH SOLN 10 ML BTL OP SCH ×2 (08:48→20:46)
[2022-11-28] MEDS: BRIMONIDINE TARTRATE-P 0.15% 5 ML BTL OPB SCH ×2 (08:48→20:46)
[2022-11-28] MEDS: HEPARIN SOD 5,000 UNIT/0.5 ML VIAL SQ SCH ×2 (08:48→20:45)
[2022-11-28] MEDS: LIDOCAINE 5% 1 PATCH TD SCH (08:49)
[2022-11-28] MEDS: METOPROLOL TARTRATE 50 MG TAB PO SCH ×2 (08:50→20:37)
[2022-11-28] MEDS: INSULIN ASPART PER UNIT CHARGE SC SCH ×4 (08:51→20:43)
[2022-11-28] MEDS: LANTUS PER UNIT CHARGE SQ SCH ×2 (08:52→20:43)
[2022-11-28] MEDS ORDERED: TORSEMIDE 10 MG TAB PO ONE (14:26)
[2022-11-28] MEDS ORDERED: POTASSIUM CHLORIDE 10 MEQ TABCR PO STA (14:26)
--- NOTE | 2022-11-28 14:27 | Hospitalist Progress Note ---
Date of Service November 28, 2022 Assessment & Plan (1) History of sudden cardiac arrest successfully resuscitated: Plan: s/p asystolic event following administration of echocardiogram dye (Definity contrast) -- 11/26/22. Patient received 2 minutes of CPR with subsequent ROSC. Did not require shocks or meds by history. Peak troponin here - 66.2. Echo - EF 40-45% (No change in EF in comparison to 2021 echo); multiple WMAs. Pulmonary HTN - moderate - PAP 40-50mmHg There are case reports of cardiac arrest following Definity contrast but there is still considerable debate over the validity of such reports/studies based on my review of the literature. D-dimer markedly elevated - see below. H/o anterior wall IA in 1983, but heart cath 6 months later at [facility] was apparently normal by report. Uncertain if any heart cath has been done since then. (Did she actually have Takotsubo's in the early ?) Appreciate Dr Montelongo's and Dr Osorio's assistance. Dr Osorio considering an EP study to ensure this was not an arrhythmogenic event (by report was not on monitor during the 2 minute code event??). Obtaining CTA chest tomorrow following prednisone protocol. (2) Elevated d-dimer: Plan: 11,000. Dopplers of legs obtained - no DVT. V/Q scan obtained (initiallyl CTA chest deferred due to contrast allergy and CrCL 20s) -- low prob for PE. Elevated dimer due to the "trauma" of her CPR yesterday? Unlikely. (trauma is a known cause of elevated dimers but the compressions were only 2 min in duration) Discussed her case thoroughly with Dr Osorio. We feel that pursuing the CTA chest is absolutely necessary for her given the clinical circumstances and the elevated d-dimer. To that end will need to perform pre-contrast prednisone protocol as follows - * prednisone 50mg q8h x 3 doses with last dose [address] * benadryl 50mg po [address] * CTA chest at noon tomorrow Patient states her initial allergy was to IVP dye at age 19. Rash only. Prior to her heart cath in the mid- she was premedicated and tolerated the contrast for that cath. (3) Chest wall pain: Plan: 2nd CPR. at minimum has chest wall contusions from chest compressions. may have rib fractures. lidoderm patches. ice prn. tylenol 1gm TID scheduled. CTA chest will show if any rib fractures or sternal fracture. (4) Hypomagnesemia: Plan: severe 2nd to diuretic usage at home? repleted resolved giving torsemide today - give mag with it (5) Abnormal LFTs: Plan: etiology? 2nd to liver irritation from chest compressions? if the abnormal LFTs was due to shock / cardiac arrest the values would have been in the hundreds or higher. repeat LFTs today improved can cont statin (6) Hypertension: Plan: Continue Amlodipine 5mg po daily Continue beta miriam (7) Type 2 diabetes mellitus: Plan: Overall well controlled. Last [id number]=5.6 on 07/21/22. Patient is on Sitagliptin and Metformin as an outpatient. -Hold oral agents -Lantus 5u BID -ISS -Goal blood sugar 110 - 140 likely will need to adjust parameters due to prednisone protocol (8) Asthma: Plan: no exacerbation at this time -Continue Albuterol PRN -Continue Fluticasone/Vilanterol (9) CAD (coronary artery disease): Plan: Patient reports history of IA at age 38. She reports having a catheterization 6 months after and was told that she had normal coronary arteries. Did she have Takotsubo's in 1983? (literature suggests that this condition was not given the formal Takotsubo's name until the so thus perhaps she had Takotsubo's in ?) Either way she remains on Atorvastatin, beta miriam. Is not on anti-platelet agents. see #1 above (10) GERD (gastroesophageal reflux disease): Plan: Continue Protonix (11) Cardiomyopathy: Plan: EF 40-45% chronic systolic CHF etiology of cardiomyopathy uncertain continues with edema and is dyspneic with walking torsemide 10mg po x 1 along with K/mag suppements (12) Paroxysmal atrial fibrillation: Plan: remains in NSR on tele continue beta miriam is not on chronic anticoagulation (13) Dyslipidemia: Plan: can cont Atorvastatin as LFTs have improved (14) Chronic kidney disease, stage IV (severe): Plan: baseline CrCl high 20s repeat BMP am for stability consider mucomyst + gentle isotonic fluids prior to her contrast study Plan left message for on his [facility] care d/celine Osorio Admission and Anticipated Discharge Date Admission Date: November 26, 2022 Subjective patient sitting in chair by window chest wall remains very sore sternal region and just to the right of the sternum are locations of pain LE edema continues denies any dyspnea at rest some BLAIR we had Mrs Sousa walk in hallway had severe pain in chest with walking (chest wall) o2 sats briefly dropped <90% Review of Systems Review of Systems: gen - good appetite today; no fevers cv - chest wall pain continues; no orthopnea or PND; + edema pulm - hurts to take deep breaths GI - no abd pain, nausea or emesis Physical Exam Physical Exam: gen - pleasant, NAD neck - mild JVD present sitting upright in chair mouth - MMM heart - RRR, s1 s2, 2/6 systolic murmur RUSB lungs - decreased BS bases, mild rales bases, fair airation chest - tender to palpation right mid chest and sternal region abd - soft NT ND BS+ ext - 2+ edema b/l, pulses 2+ b/l Results & Data Results & Data Vital Signs (Past 12 Hours) Vital Signs Temp Pulse Pulse Resp BP Pulse Ox O2 Del Method 11/28/22 11:08 36.8 C 52 L 18 126/70 93 Room Air 11/28/22 07:56 50 L 11/28/22 07:24 52 L 18 129/57 L 92 Room Air 11/28/22 02:34 36.6 C 63 20 158/74 H 90 Room Air Laboratory Results Laboratory Results - last 24 hr 11/27/22 11/27/22 11/28/22 07:41 09:45 06:14 Sodium 138 Potassium 4.5 Chloride 107 Carbon Dioxide 23 Anion Gap 8 BUN 40 H Creatinine 1.73 H Est Cr Clr Drug Dosing 29.1 Est GFR ( Amer) 32.7 Est GFR (Non-Af Amer) 28.2 BUN/Creatinine Ratio 23.1 H Glucose 145 H POC Glucose 139 H 229 H Calcium 8.9 Magnesium 2.0 Total Bilirubin 1.1 H AST 34 ALT 52 Alkaline Phosphatase 46 Total Protein 6.6 Albumin 3.5 Globulin 3.1 Albumin/Globulin Ratio 1.1 11/28/22 11/28/22 11/28/22 07:23 11:07 16:11 Sodium Potassium Chloride Carbon Dioxide Anion Gap BUN Creatinine Est Cr Clr Drug Dosing Est GFR ( Amer) Est GFR (Non-Af Amer) BUN/Creatinine Ratio Glucose POC Glucose 166 H 155 H 153 H Calcium Magnesium Total Bilirubin AST ALT Alkaline Phosphatase Total Protein Albumin Globulin Albumin/Globulin Ratio 11/28/22 20:00 Sodium Potassium Chloride Carbon Dioxide Anion Gap BUN Creatinine Est Cr Clr Drug Dosing Est GFR ( Amer) Est GFR (Non-Af Amer) BUN/Creatinine Ratio Glucose POC Glucose 216 H Calcium Magnesium Total Bilirubin AST ALT Alkaline Phosphatase Total Protein Albumin Globulin Albumin/Globulin Ratio PG Care Time/CCT Total # of Minutes Spent Total Time Spent with Patient: Total time spent is greater than 50% in coordination of care (as documented) at patient's floor/unit and/or counseling patient: Coding Level of Care Code 02159 SUB INP/OBS CARE 3/50MIN Diagnoses History of sudden cardiac arrest successfully resuscitated Z86.74 Elevated d-dimer R79.89 Chest wall pain R07.89 Hypomagnesemia E83.42 Abnormal LFTs R79.89 Hypertension I10 Hypertension type: essential hypertension Type 2 diabetes mellitus E11.22; N18.3 Chronic kidney disease stage: stage 3 (moderate) Diabetes mellitus complication detail: with chronic kidney disease Diabetes mellitus complication status: with kidney complications Diabetes mellitus senior care insulin use: without senior care use Asthma J45.909 Asthma complication type: unspecified Asthma persistence: unspecified Asthma severity: unspecified severity CAD (coronary artery disease) I25.10 Associated angina: without angina Coronary Disease-Associated Artery/Lesion type: unspecified vessel or lesion type [place] vs. transplanted heart: [place] heart GERD (gastroesophageal reflux disease) K21.9 Esophagitis presence: esophagitis presence not specified Cardiomyopathy I25.5 Cardiomyopathy type: ischemic Paroxysmal atrial fibrillation I48.0 Dyslipidemia E78.5 Chronic kidney disease, stage IV (severe) N18.4 (6) Hypertension Hypertension type: essential hypertension Qualified Code(s): I10 - Essential (primary) hypertension (7) Type 2 diabetes mellitus Chronic kidney disease stage: stage 3 (moderate) Diabetes mellitus complication detail: with chronic kidney disease Diabetes mellitus complication status: with kidney complications Diabetes mellitus oysterman insulin use: with out oysterman use Qualified Code(s): E11.22 - Type 2 diabetes mellitus with diabetic chronic kidney disease; N18.3 - Chronic kidney disease, stage 3 ( moderate) (8) Asthma Asthma complication type: unspecified Asthma persistence: unspecified Asthma severity: unspecified severity Qualified Code(s): J45.909 - Unspecified asthma, uncomplicated (9) CAD (coronary artery disease) Associated angina: without angina Coronary Disease-Associated Artery/Lesion type: unspecified vessel or lesion type [place] vs. transplanted heart: [place] heart Qualified Code(s): I25.10 - Atherosclerotic heart disease of [place] coronary artery without angina pectoris (10) GERD (gastroesophageal reflux disease) Esophagitis presence: esophagitis presence not specified Qualified Code(s): K21.9 - Gastro-esophageal reflux disease without esophagitis (11) Cardiomyopathy Cardiomyopathy type: ischemic Qualified Code(s): I25.5 - Ischemic cardiomyopathy
[2022-11-28] MEDS: MAGNESIUM OXIDE 400 MG TAB PO SCH ×2 (15:10→22:00)
--- NOTE | 2022-11-28 15:21 | Cardiology Progress Note ---
Date of Service November 28, 2022 Assessment & Plan (1) Cardiac arrest: Plan: (2) Cardiomyopathy: Plan: -mild to moderate left ventricular dysfunction with ejection fraction of 35-40%. -apical akinesis noted on current study. (3) HFrEF (heart failure with reduced ejection fraction): (4) Aortic valvular disorder: Plan 1. Unresponsiveness: The cause remains quite unclear. There are number of possibilities including this being related to Definity although by itself that seems quite unusual, perhaps it was some other cause temporally related to having the echocardiogram. Other possibilities include complete heart block with longstanding left bundle branch block, ventricular tachycardia or ventricular fibrillation in the setting of a prior myocardial infarction and left ventricular dysfunction, the possibility of a pulmonary embolism based on elevated D-dimer. It may be reasonable to consider a pulmonary CT angiogram to exclude pulmonary emboli and the risk of dye allergy seems relatively low although she should probably be pretreated. I discussed several options with her including loop recorder implantation which would not treat a subsequent event but may help with diagnosis but could carry some risk since it does not provide any therapy versus pacemaker (preferably biventricular) versus a biventricular ICD. We could consider electrophysiologic study if we feel that that would be productive enough to guide treatment. We did not come up with a plan as yet. 2. Cardiomyopathy: She has a moderate or worse cardiomyopathy with ejection fraction of 35 to 40%, this is probably primarily ischemic (her myocardial infarction without coronary artery disease) although it could be also related to the left bundle branch block pattern. If her ejection fraction were 35% or less she would qualify for an ICD even without any type of event, this event may push us toward an ICD since her ejection fraction is very close to this guideline. Perhaps she should be on heart failure medications. 3. Heart failure: At the moment she does not seem to be in much heart failure, cardiac performance could probably be improved with biventricular pacing. Her QRS duration is over 160 ms on recent electrocardiograms and she may well have significant improvement in cardiac function with biventricular pacing. 4. Aortic stenosis: Probably not related to her current situation although left bundle branch block is common with aortic stenosis. Admission and Anticipated Discharge Date Admission Date: November 26, 2022 Subjective Patient examined and chart reviewed. In brief, she has a history of myocardial infarction at age 38 with subsequent catheterization some months later recording to show normal coronary arteries. This is the only catheterization she has had, of note she had a dye reaction prior to that catheterization and was treated at that time but did not have a react which. Evidently her arteries were reported as normal. Perhaps this was Takatsubo cardiomyopathy which I do not believe was well understood at the time. She also has a longstanding left bundle branch block pattern, she believes that dates back to around that time and all her electrocardiograms here do seem to show the pattern. She also has a longstanding cardiomyopathy which I suppose we should call an ischemic since she had a myocardial infarction, even though she does not have coronary artery disease. As such she does have risk for ventricular arrhythmias with an ejection fraction of 35 to 40% for quite a few years including currently. She does not have a lot of heart failure symptoms, perhaps minor dyspnea on exertion which may be progressive but might be consistent with her age. She is not on heart failure medications, such as beta-blockade, NINI/ARB treatment or some of the newer ones. Her event leading to his hospitalization happened shortly after receiving Definity, however it would be very unusual for this to be related to Definity although it cannot be excluded. The event itself was an unresponsive episode with apnea and no pulse, it lasted 1 to 2 minutes and required CPR. Unfortunately electrocardiographic recordings were not performed until after recovery. The rhythm therefore is unknown during the event. She has no prior history of presyncope or syncope. Her only real complaint today is chest discomfort likely related to CPR. She does not have shortness of breath although she cannot breathe very deeply due to the chest discomfort. Physical Exam Physical Exam: Constitutional: Alert, cooperative and in no distress. She is sitting at her bedside. HEENT: Unremarkable Neck: No jugular venous distention, carotid pulses are normal and equal bilaterally without bruits. Pulmonary: Clear to auscultation bilaterally. Cardiac: Regular rhythm with no murmur, gallop or rub. Her chest is quite tender. Abdomen: Soft, nontender with normal bowel sounds. Extremities: No edema. Distal pulses intact. Neurologic: No focal findings. Skin: No rash, ecchymoses or petechiae. Results & Data Vital Signs (Past 12 Hours) Vital Signs Temp Pulse Pulse Resp BP Pulse Ox O2 Del Method 11/28/22 14:59 93 Room Air 11/28/22 14:57 84 L Room Air 11/28/22 11:08 36.8 C 52 L 18 126/70 93 Room Air 11/28/22 07:56 50 L 11/28/22 07:24 52 L 18 129/57 L 92 Room Air Diagnostic Findings Cardiac Enzymes 11/28/22 Range/Units 06:14 AST 34 (13-39) U/L Comprehensive Metabolic Panel 11/28/22 Range/Units 06:14 Sodium 138 (136-145) mmol/L Potassium 4.5 (3.5-5.1) mmol/L Chloride 107 (98-107) mmol/L Carbon Dioxide 23 (21-32) mmol/L BUN 40 H (6-23) mg/dl Creatinine 1.73 H (0.6-1.2) mg/dl Glucose 145 H (70-99(Fasting)) mg/dl Calcium 8.9 (8.6-10.3) mg/dl AST 34 (13-39) U/L ALT 52 (7-52) U/L Alkaline Phosphatase 46 (34-104) U/L Total Protein 6.6 (6.0-8.3) gm/dl Albumin 3.5 (3.4-5.0) gm/dl Intake and Output 11/28/22 11/28/22 11/28/22 06:59 14:59 22:59 Intake Total 100 / 890 Balance 100 / 890 Intake: Oral 100 / 690 Other: Weight 91.3 kg 90.2 kg Weight Measurement Method Standing Scale Standing Scale Patient Weight 11/29/22 06:59 Weight 90.2 kg PG Care Time/CCT Total # of Minutes Spent Total Time Spent with Patient: Total time spent is greater than 50% in coordination of care (as documented) at patient's floor/unit and/or counseling patient: Coding Level of Care Code 88146 SUB INP/OBS CARE 3/50MIN Diagnoses Cardiac arrest I46.9 Cardiomyopathy I25.5 Cardiomyopathy type: ischemic HFrEF (heart failure with reduced ejection fraction) I50.20 Aortic valvular disorder I35.9 (2) Cardiomyopathy Cardiomyopathy type: ischemic Qualified Code(s): I25.5 - Ischemic cardiomyopathy
[2022-11-28] MEDS ORDERED: diphenhydrAMINE Capsule 25 MG CAP PO ONE (17:36)
[2022-11-28] MEDS ORDERED: FAMOTIDINE 20 MG TAB PO ONE (17:36)
[2022-11-28] MEDS ORDERED: predniSONE 50 MG TAB PO SCH (18:00)
[2022-11-28] MEDS: PANTOprazole 40 MG TAB PO SCH (20:36)
[2022-11-28] MEDS: FLUTICASONE/VILANTEROL 200/25MCG 14 PUFFS/INHALER INH SCH (20:43)
[2022-11-29] MEDS: oxyCODONE HCL IR 5 MG TAB (IMMEDIATE RELEASE) PO PRN ×2 (00:43→23:54)
[2022-11-29] MEDS: predniSONE 50 MG TAB PO SCH ×2 (02:43→11:15)
[2022-11-29 07:56] LABS: BUN Creatinine Ratio 24.4 (10-20); Calcium 8.9 mg/dl (8.6-10.3); Creatinine Clr Calc Pharmacy 29.2 ml/min; Est GFR (African American) 32.9 ml/min; Est GFR (Non-African American) 28.4 ml/min; Potassium 4.5 mmol/L (3.5-5.1)
[2022-11-29] MEDS ORDERED: LANTUS PER UNIT CHARGE SQ SCH (09:00)
[2022-11-29] MEDS: ACETAMINOPHEN 500 MG TAB PO SCH ×3 (09:14→20:55)
[2022-11-29] MEDS: amLODIPine BESYLATE 5 MG TAB PO SCH (09:15)
[2022-11-29] MEDS: MAGNESIUM OXIDE 400 MG TAB PO SCH ×2 (09:15→20:56)
[2022-11-29] MEDS: ATORVASTATIN 20 MG TAB PO SCH (09:15)
[2022-11-29] MEDS: DORZOLAMIDE HCL 2% OPH SOLN 10 ML BTL OP SCH ×2 (09:15→20:55)
[2022-11-29] MEDS: HEPARIN SOD 5,000 UNIT/0.5 ML VIAL SQ SCH ×2 (09:15→20:54)
[2022-11-29] MEDS: BRIMONIDINE TARTRATE-P 0.15% 5 ML BTL OPB SCH ×2 (09:15→20:55)
[2022-11-29] MEDS: METOPROLOL TARTRATE 50 MG TAB PO SCH ×2 (09:15→19:56)
[2022-11-29] MEDS: INSULIN ASPART PER UNIT CHARGE SC SCH ×4 (09:16→20:54)
[2022-11-29] MEDS: LIDOCAINE 5% 1 PATCH TD SCH (09:16)
[2022-11-29] MEDS ORDERED: diphenhydrAMINE Capsule 25 MG CAP PO SCH ×2 (10:00→11:00)
[2022-11-29] MEDS ORDERED: FAMOTIDINE 20 MG TAB PO SCH (10:00)
[2022-11-29] MEDS ORDERED: SODIUM CHLORIDE 0.9% 500 ML IV SCH (11:00)
--- NOTE | 2022-11-29 11:29 | Cardiology Progress Note ---
Date of Service November 29, 2022 Assessment & Plan (1) Cardiac arrest: Plan: (2) Cardiomyopathy: Plan: -mild to moderate left ventricular dysfunction with ejection fraction of 35-40%. -apical akinesis noted on current study. (3) HFrEF (heart failure with reduced ejection fraction): (4) Aortic valvular disorder: Plan 1. Unresponsiveness: The cause remains quite unclear. There are number of possibilities including this being related to Definity although by itself that seems quite unusual, perhaps it was some other cause temporally related to having the echocardiogram. Other possibilities include complete heart block (she has longstanding left bundle branch block), ventricular tachycardia or ventricular fibrillation (she has a prior scar and decreased left ventricular function) and the possibility of a pulmonary embolism based on elevated D-dimer which will be evaluated today. I have discussed several options with her including conservative treatment which would at the minimum be a loop recorder implantation which would not treat a subsequent event but may help with diagnosis but could carry some risk since it does not provide any therapy, implantation of a pacemaker (preferably biventricular) versus implantation of a biventricular ICD. We could consider electrophysiologic study if we feel that that would be productive enough to guide treatment. We did not come up with a definitive plan as yet however if her pulmonary angiogram is normal I would consider a biventricular ICD since that will help in other ways as well. 2. Cardiomyopathy: She has a moderate or worse cardiomyopathy with an ejection fraction of 35 to 40%, this is probably primarily ischemic (her myocardial infarction without coronary artery disease) although it could be also related to the left bundle branch block pattern. If her ejection fraction were 35% or less she would qualify for an ICD even without any type of event, this event may push us toward an ICD since her ejection fraction is very close to this guideline. Perhaps she should be on heart failure medications (traditional beta-blockers instead of Bystolic which would probably lower her heart rate further). With the pacemaker in place this could be accomplished and biventricular pacing would likely improve her left ventricular function since her QRS duration is over 160 ms. 3. Heart failure: At the moment she does not seem to be in much heart failure, cardiac performance could probably be improved with biventricular pacing. Her QRS duration is over 160 ms on recent electrocardiograms and she may well have significant improvement in cardiac function with biventricular pacing. She does have symptoms of decreased exercise tolerance and it would likely improve with biventricular pacing. 4. Aortic stenosis: Probably not related to her current situation although left bundle branch block is common with aortic stenosis. Admission and Anticipated Discharge Date Admission Date: November 26, 2022 Subjective At rest she feels well, no hemodynamic symptoms but still has chest wall discomfort. Physical Exam Physical Exam: Constitutional: Alert, cooperative and in no distress. She is sitting at her bedside. HEENT: Unremarkable Neck: No jugular venous distention, carotid pulses are normal and equal bilaterally without bruits. Pulmonary: Clear to auscultation bilaterally. Cardiac: Regular rhythm with no murmur, gallop or rub. Her chest is quite tender. Abdomen: Soft, nontender with normal bowel sounds. Extremities: No edema. Distal pulses intact. Neurologic: No focal findings. Skin: No rash, ecchymoses or petechiae. Results & Data Vital Signs (Past 12 Hours) Vital Signs Temp Pulse Pulse Resp BP Pulse Ox O2 Del Method 11/29/22 08:02 60 11/29/22 07:33 36.7 C 70 18 163/84 H 96 Room Air 11/29/22 02:56 36.7 C 60 18 155/78 H 94 Room Air Laboratory Results Comprehensive Metabolic Panel 11/29/22 Range/Units 07:18 Sodium 137 (136-145) mmol/L Potassium 4.5 (3.5-5.1) mmol/L Chloride 104 (98-107) mmol/L Carbon Dioxide 23 (21-32) mmol/L BUN 42 H (6-23) mg/dl Creatinine 1.72 H (0.6-1.2) mg/dl Glucose 243 H (70-99(Fasting)) mg/dl Calcium 8.9 (8.6-10.3) mg/dl Intake and Output 11/28/22 11/29/22 11/29/22 22:59 06:59 14:59 Intake Total 200 / 900 100 / 900 Balance 200 / 900 100 / 900 Intake: Oral 200 / 900 100 / 900 Other: # Unmeasured Voids 1 1 Weight 91.2 kg Diagnostic Findings Telemetry: Sinus rhythm and sinus bradycardia, no AV block. PG Care Time/CCT Total # of Minutes Spent Total Time Spent with Patient: Total time spent is greater than 50% in coordination of care (as documented) at patient's floor/unit and/or counseling patient: Coding Level of Care Code 78617 SUB INP/OBS CARE 50MIN Diagnoses Cardiac arrest I46.9 Cardiomyopathy I25.5 Cardiomyopathy type: ischemic HFrEF (heart failure with reduced ejection fraction) I50.20 Aortic valvular disorder I35.9 (2) Cardiomyopathy Cardiomyopathy type: ischemic Qualified Code(s): I25.5 - Ischemic cardiomyopathy
[2022-11-29] MEDS ORDERED: OPTIRAY 320 125ml IV ONE (12:34)
--- NOTE | 2022-11-29 12:58 | CT Scan Report ---
CT ANGIOGRAPHY OF THE CHEST, PULMONARY EMBOLUS PROTOCOL CLINICAL HISTORY: cardiac arrest, elevated dimer; eval PE, rib fx's COMPARISON STUDY: Chest radiograph November 26, 2022. Nuclear medicine perfusion study November 27, 2022. est CT September 02, 2022. TECHNIQUE: Following IV administration of 119 mL of Optiray, helical axial images of the chest were o btained utilizing the pulmonary embolus protocol. Maximal intensity projections and sagittal and cor onal reformats were viewed on an independent 3D workstation. IV contrast was administered without co mplication. Automated exposure control was utilized for the study. A dose lowering technique was ut ilized adhering to the principles of ALARA. CT DOSE: 760.59 mGy.cm FINDINGS: No pulmonary emboli are identified. Moderate cardiomegaly is noted. There is thickening of the left ventricular apex. This favors an old infarct. There is no thoracic aortic dissection. No pe ricardial effusion is present. There are trace bilateral pleural effusions. Segmental subpleural opac ities within lungs favor atelectasis. There is no consolidation to suggest pneumonia. There is no pne umothorax. There are acute nondisplaced fractures of the anterior right second through sixth ribs and the anterior left second through fifth ribs. No acute thoracic spine fractures are noted. There is a n acute inferior minimally displaced sternal fracture. IMPRESSION: 1. No pulmonary emboli identified. 2. Acute nondisplaced fractures of the anterior right second through sixth ribs and the anterior left second through fifth ribs. No pneumothorax. Acute minimally displaced inferior sternal fracture. 3. Trace bilateral pleural effusions. Segmental subpleural opacities suggestive of atelectasis. 4. Moderate cardiomegaly. Left ventricular apical thinning suggestive of an old infarct. ACT 112: Negative or not required by law. Electronically signed by: Adan Snider M.D. 11/29/2022 12:56 PM
--- NOTE | 2022-11-29 19:50 | Hospitalist Progress Note ---
Date of Service November 29, 2022 Assessment & Plan (1) History of sudden cardiac arrest successfully resuscitated: Plan: s/p asystolic event following administration of echocardiogram dye (Definity contrast) -- 11/26/22. Patient received 2 minutes of CPR with subsequent ROSC. Did not require shocks or meds by history. Peak troponin here - 66.2. ACS not suspected. CTA chest today without PEs. Echo - EF 40-45% (No change in EF in comparison to 2021 echo); multiple WMAs. Pulmonary HTN - moderate - PAP 40-50mmHg There are case reports of cardiac arrest following Definity contrast but there is still considerable debate over the validity of such reports/studies based on my review of the literature. H/o anterior wall VA in 1983, but heart cath 6 months later at [facility] was apparently normal by report. Uncertain if any heart cath has been done since then. (Did she actually have Takotsubo's in the early ?) Appreciate Dr Montelongo's and Dr Osorio's assistance. Dr Osorio considering an EP study to ensure this was not an arrhythmogenic event (by report was not on monitor during the 2 minute code event??) vs ICD placement. He may perform such tomorrow on 11/30. (2) Elevated d-dimer: Plan: 11,000. Dopplers of legs obtained - no DVT. V/Q scan - low prob for PE. After ensuring her renal function has been stable and after performing pre- contrast prednisone protocol over the last 24 hours -- CTA chest obtained today. This was NEGATIVE for PEs. Elevated dimer due to the trauma of her CPR and subsequent fractures? (trauma is a known cause of elevated d-dimer) No other obvious cause of her elevated d-dimer. (3) Chest wall pain: Plan: 2nd b/l rib fractures & sternal fracture from chest compressions tylenol 1gm TID lidoderms oxy prn (4) Hypomagnesemia: Plan: present on admission --> severe 2nd to diuretic usage at home? repleted resolved (5) Abnormal LFTs: Plan: etiology? 2nd to liver irritation from chest compressions? if the abnormal LFTs was due to shock / cardiac arrest the values would have been in the hundreds or higher. most recent LFTs improved can cont statin (6) Hypertension: Plan: Continue Amlodipine 5mg po daily Continue beta miriam (7) Type 2 diabetes mellitus: Plan: oral agents on hold checking a1c in am BSGs now uncontrolled due to prednisone protocol increase lantus to 10 units BID increase novolog parameters hyperglycemia likely to continue well into tomorrow (8) Asthma: Plan: no exacerbation at this time Continue Albuterol PRN Continue Fluticasone/Vilanterol (9) CAD (coronary artery disease): Plan: Patient reports history of VA at age 38. She reports having a catheterization 6 months after and was told that she had normal coronary arteries. Did she have Takotsubo's in 1983? (literature suggests that this condition was not given the formal Takotsubo's name until the so thus perhaps she had Takotsubo's in ?) Either way she remains on Atorvastatin, beta miriam. Is not on anti-platelet agents. see #1 above (10) GERD (gastroesophageal reflux disease): Plan: Continue Protonix (11) Cardiomyopathy: Plan: EF 40-45% chronic systolic CHF etiology of cardiomyopathy - WMAs suggest ischemia other than edema of legs she otherwise appears compensated CTA chest without pulmonary edema (12) Paroxysmal atrial fibrillation: Plan: remains in NSR on tele continue beta miriam is not on chronic anticoagulation (13) Dyslipidemia: Plan: cont Atorvastatin (14) Chronic kidney disease, stage IV (severe): Plan: baseline CrCl high 20s/about 30 Creatinine 1.7 today and CrCl just shy of 30 prior to her CTA chest today and after will give NS x 500cc repeat BMP am to ensure stability (15) Closed fracture of multiple ribs of both sides: Plan: Acute nondisplaced fractures of the anterior right 2nd through 6th ribs and the anterior left 2nd through 5th ribs. No pneumothorax. 2nd to chest compressions during cardiac arrest 11/26/22. Cont scheduled tylenol 1gm TID. Cont lidoderm patches. Cont oxycodone prn. 25-OH vit D level 54 in October 2022. (16) Sternal fracture: Plan: Acute minimally displaced inferior sternal fracture. 2nd to chest compressions during cardiac arrest 11/26/22. Lidoderms, tylenol, oxycodone prn. Plan DVT proph - heparin 5000 BID updated pt's at bedside today care d/w Dr Osorio by phone today Admission and Anticipated Discharge Date Admission Date: November 26, 2022 Subjective only complaint this am is that of ongoing chest wall pain with taking deep breaths, walking, transfers, etc she has pain over the chest - central and slightly to the right slept last pm in recliner chair and was comfortable in such denies any dyspnea at rest denies any PND continues to eat well tele - no dysrhythmia overnight Review of Systems Review of Systems: gen - no fevers or chills, good appetite cv - chest wall pain, ongoing edema pulm - no cough or dyspnea GI - no abd pain, nausea or emesis - no LUTS Physical Exam Physical Exam: gen - pleasant, NAD, laying in recliner near window neck - mild JVD present mouth - MMM heart - RRR, s1 s2, 2/6 systolic murmur RUSB/LSB lungs - decreased BS bases, improved basilar rales, poor-fair airation chest - tender to palpation mid chest/sternal region abd - soft NT ND BS+ ext - 2+ edema b/l, pulses 2+ b/l psych - a/o x 3 Results & Data Results & Data Vital Signs (Past 12 Hours) Vital Signs Temp Pulse Pulse Resp BP Pulse Ox O2 Del Method 11/29/22 19:05 36.5 C 57 L 18 159/81 H 97 Room Air 11/29/22 15:51 36.9 C 56 L 18 155/75 H 96 Room Air 11/29/22 15:04 58 L 11/29/22 12:48 36.8 C 69 19 159/99 H 97 Room Air 11/29/22 08:02 60 Laboratory Results Laboratory Results - last 24 hr 11/27/22 11/27/22 11/28/22 07:41 09:45 20:00 Sodium Potassium Chloride Carbon Dioxide Anion Gap BUN Creatinine Est Cr Clr Drug Dosing Est GFR ( Amer) Est GFR (Non-Af Amer) BUN/Creatinine Ratio Glucose POC Glucose 139 H 229 H 216 H Calcium 11/29/22 11/29/22 11/29/22 07:18 07:29 11:15 Sodium 137 Potassium 4.5 Chloride 104 Carbon Dioxide 23 Anion Gap 10 BUN 42 H Creatinine 1.72 H Est Cr Clr Drug Dosing 29.2 Est GFR ( Amer) 32.9 Est GFR (Non-Af Amer) 28.4 BUN/Creatinine Ratio 24.4 H Glucose 243 H POC Glucose 246 H 342 H* Calcium 8.9 11/29/22 11/29/22 11:17 16:25 Sodium Potassium Chloride Carbon Dioxide Anion Gap BUN Creatinine Est Cr Clr Drug Dosing Est GFR ( Amer) Est GFR (Non-Af Amer) BUN/Creatinine Ratio Glucose POC Glucose 326 H* 226 H Calcium Diagnostic Findings Chest CTA 11/29/22 12:00 CT ANGIOGRAPHY OF THE CHEST, PULMONARY EMBOLUS PROTOCOL CLINICAL HISTORY: cardiac arrest, elevated dimer; eval PE, rib fx's COMPARISON STUDY: Chest radiograph November 26, 2022. Nuclear medicine perfusion [facility] November 27, 2022. Chest CT September 02, 2022. TECHNIQUE: Following IV administration of 119 mL of Optiray, helical axial images of the chest were obtained utilizing the pulmonary embolus protocol. M aximal intensity projections and sagittal and coronal reformats were viewed on an independent 3D workstation. IV contrast was administered without complication. Automated exposure control was utilized for the study. A dose lowering technique was utilized adhering to the principles of ALARA. CT DOSE: 760.59 mGy.cm FINDINGS: No pulmonary emboli are identified. Moderate cardiomegaly is noted. There is thickening of the left ventricular apex. This favors an old infarct. There is no thoracic aortic dissection. No pericardial effusion is present. There are trace bilateral pleural effusions. Segmental subpleural opacities within lungs favor atelectasis. There is no consolidation to suggest pneumonia. There is no pneumothorax. There are acute nondisplaced fractures of the anterior right second through sixth ribs and the anterior left second through fifth ribs. No acute thoracic spine fractures are noted. There is an acute inferior minimally displaced sternal fracture. IMPRESSION: 1. No pulmonary emboli identified. 2. Acute nondisplaced fractures of the anterior right second through sixth ribs and the anterior left second through fifth ribs. No pneumothorax. Acute minim ally displaced inferior sternal fracture. 3. Trace bilateral pleural effusions. Segmental subpleural opacities suggestive of atelectasis. 4. Moderate cardiomegaly. Left ventricular apical thinning suggestive of an old infarct. ACT 112: Negative or not required by law. Electronically signed by: Adan Snider M.D. 11/29/2022 12:56 PM PG Care Time/CCT Total # of Minutes Spent Total Time Spent with Patient: Total time spent is greater than 50% in coordination of care (as documented) at patient's floor/unit and/or counseling patient: Coding Level of Care Code 84902 SUB INP/OBS CARE 50MIN Diagnoses History of sudden cardiac arrest successfully resuscitated Z86.74 Elevated d-dimer R79.89 Chest wall pain R07.89 Hypomagnesemia E83.42 Abnormal LFTs R79.89 Hypertension I10 Hypertension type: essential hypertension Type 2 diabetes mellitus E11.22; N18.3 Chronic kidney disease stage: stage 3 (moderate) Diabetes mellitus complication detail: with chronic kidney disease Diabetes mellitus complication status: with kidney complications Diabetes mellitus care home insulin use: without care home use Asthma J45.909 Asthma complication type: unspecified Asthma persistence: unspecified Asthma severity: unspecified severity CAD (coronary artery disease) I25.10 Associated angina: without angina Coronary Disease-Associated Artery/Lesion type: unspecified vessel or lesion type [place] vs. transplanted heart: [place] heart GERD (gastroesophageal reflux disease) K21.9 Esophagitis presence: esophagitis presence not specified Cardiomyopathy I25.5 Cardiomyopathy type: ischemic Paroxysmal atrial fibrillation I48.0 Dyslipidemia E78.5 Chronic kidney disease, stage IV (severe) N18.4 Closed fracture of multiple ribs of both sides S22.43XA Sternal fracture S22.20XA (6) Hypertension Hypertension type: essential hypertension Qualified Code(s): I10 - Essential (primary) hypertension (7) Type 2 diabetes mellitus Chronic kidney disease stage: stage 3 (moderate) Diabetes mellitus complication detail: with chronic kidney disease Diabetes mellitus complication status: with kidney complications Diabetes mellitus care home insulin use: without care home use Qualified Code(s): E11.22 - Type 2 diabetes mellitus with diabetic chronic kidney disease; N18.3 - Chronic kidney disease, stage 3 (moderate) (8) Asthma Asthma complication type: unspecified Asthma persistence: unspecified Asthma severity: unspecified severity Qualified Code(s): J45.909 - Unspecified asthma, uncomplicated (9) CAD (coronary artery disease) Associated angina: without angina Coronary Disease-Associated Artery/Lesion type: unspecified vessel or lesion type [place] vs. transplanted heart: [place] heart Qualified Code(s): I25.10 - Atherosclerotic heart disease of [place] coronary artery without angina pectoris (10) GERD (gastroesophageal reflux disease) Esophagitis presence: esophagitis presence not specified Qualified Code(s): K21.9 - Gastro-esophageal reflux disease without esophagitis (11) Cardiomyopathy Cardiomyopathy type: ischemic Qualified Code(s): I25.5 - Ischemic cardiomyopathy
[2022-11-29] MEDS: LANTUS PER UNIT CHARGE SQ SCH (20:54)
[2022-11-29] MEDS: FLUTICASONE/VILANTEROL 200/25MCG 14 PUFFS/INHALER INH SCH (20:54)
[2022-11-29] MEDS: PANTOprazole 40 MG TAB PO SCH (20:56)
[2022-11-30 06:32] LABS: BUN Creatinine Ratio 26.6 (10-20); Calcium 9.1 mg/dl (8.6-10.3); Creatinine Clr Calc Pharmacy 31.8 ml/min; Est GFR (African American) 36.5 ml/min; Est GFR (Non-African American) 31.5 ml/min; Potassium 4.9 mmol/L (3.5-5.1)
[2022-11-30] MEDS: BRIMONIDINE TARTRATE-P 0.15% 5 ML BTL OPB SCH ×2 (08:06→20:25)
[2022-11-30] MEDS: DORZOLAMIDE HCL 2% OPH SOLN 10 ML BTL OP SCH ×2 (08:06→20:26)
[2022-11-30] MEDS: ACETAMINOPHEN 500 MG TAB PO SCH ×3 (08:07→20:22)
[2022-11-30] MEDS: MAGNESIUM OXIDE 400 MG TAB PO SCH ×2 (08:08→20:22)
[2022-11-30] MEDS: ATORVASTATIN 20 MG TAB PO SCH (08:08)
[2022-11-30] MEDS: amLODIPine BESYLATE 5 MG TAB PO SCH (08:08)
[2022-11-30] MEDS: HEPARIN SOD 5,000 UNIT/0.5 ML VIAL SQ SCH ×2 (08:09→20:26)
[2022-11-30] MEDS: INSULIN ASPART PER UNIT CHARGE SC SCH ×4 (08:16→20:31)
[2022-11-30] MEDS: LIDOCAINE 5% 1 PATCH TD SCH (08:17)
[2022-11-30] MEDS: LANTUS PER UNIT CHARGE SQ SCH ×2 (08:17→20:30)
[2022-11-30 08:24] LABS: Estimated Average Glucose 137 mg/dl; Hemoglobin A1C 6.4 % (4.5-5.6)
[2022-11-30] MEDS ORDERED: predniSONE 50 MG TAB PO STA (09:41)
[2022-11-30] MEDS: METOPROLOL TARTRATE 50 MG TAB PO SCH ×3 (10:19→20:21)
[2022-11-30] MEDS ORDERED: METOPROLOL TARTRATE 25 MG TAB PO SCH (10:30)
--- NOTE | 2022-11-30 10:52 | Cardiology Progress Note ---
Date of Service November 30, 2022 Assessment & Plan (1) Cardiac arrest: Plan: (2) Cardiomyopathy: Plan: (3) HFrEF (heart failure with reduced ejection fraction): (4) Aortic valvular disorder: Plan 1. Unresponsiveness: The cause remains quite unclear. There are number of possibilities including this being related to Definity although by itself that seems quite unusual, perhaps it was some other cause temporally related to having the echocardiogram. Other possibilities include complete heart block (she has longstanding left bundle branch block which appears somewhat progressive with increasing QRS duration), ventricular tachycardia or ventricular fibrillation (she has a prior scar and decreased left ventricular function). A pulmonary embolism was considered but she does not have evidence for that. We have discussed several options with her including conservative treatment which would at the minimum be a loop recorder implantation which would not treat a subsequent event but may help with diagnosis but would carry some risk since it does not provide any therapy, implantation of a pacemaker (preferably biventricular) versus implantation of a biventricular ICD. My recommendation would be a biventricular ICD, biventricular pacing would likely help her cardiomyopathy, it would protect her from heart block as well as treat a tachycardia if present. She is agreeable and we will plan for that procedure today. 2. Cardiomyopathy: She has a moderate or worse cardiomyopathy with an ejection fraction of 35 to 40%, this is probably primarily ischemic (her myocardial infarction without coronary artery disease) although it could be also related to the left bundle branch block pattern. If her ejection fraction were 35% or less she would qualify for an ICD even without any type of event, this event may push us toward an ICD since her ejection fraction is very close to this guideline. Perhaps she should be on heart failure medications (traditional beta-blockers instead of Bystolic which would probably lower her heart rate further). With the pacemaker in place this could be accomplished and biventricular pacing would likely improve her left ventricular function since her QRS duration is over 160 ms. 3. Heart failure: At the moment she does not seem to be in much heart failure, cardiac performance could probably be improved with biventricular pacing. Her QRS duration is over 160 ms on recent electrocardiograms and she may well have significant improvement in cardiac function with biventricular pacing. She does have symptoms of decreased exercise tolerance and exercise ability would likely improve with biventricular pacing. 4. Aortic stenosis: Probably not related to her current situation although left bundle branch block is common with aortic stenosis. Admission and Anticipated Discharge Date Admission Date: November 26, 2022 Subjective She continues to have chest wall discomfort but no other cardiovascular symptoms. She did have her pulmonary angiogram yesterday and had no reaction to the dye, she was pretreated. Physical Exam Physical Exam: Constitutional: Alert, cooperative and in no distress. She is sitting at her bedside. HEENT: Unremarkable Neck: No jugular venous distention, carotid pulses are normal and equal bilaterally without bruits. Pulmonary: Clear to auscultation bilaterally. Cardiac: Regular rhythm with no murmur, gallop or rub. Her chest is quite tender. Abdomen: Soft, nontender with normal bowel sounds. Extremities: No edema. Distal pulses intact. Neurologic: No focal findings. Skin: No rash, ecchymoses or petechiae. Results & Data Vital Signs (Past 12 Hours) Vital Signs Temp Pulse Pulse Resp BP Pulse Ox O2 Del Method 11/30/22 07:30 36.8 C 66 18 125/67 Room Air 11/29/22 23:00 47 L 11/30/22 03:04 36.6 C 57 L 18 160/80 H 97 Room Air 11/29/22 23:11 36.7 C 49 L 18 141/71 H 98 Room Air Laboratory Results Comprehensive Metabolic Panel 11/30/22 Range/Units 05:52 Sodium 138 (136-145) mmol/L Potassium 4.9 (3.5-5.1) mmol/L Chloride 107 (98-107) mmol/L Carbon Dioxide 23 (21-32) mmol/L BUN 42 H (6-23) mg/dl Creatinine 1.58 H (0.6-1.2) mg/dl Glucose 180 H (70-99(Fasting)) mg/dl Calcium 9.1 (8.6-10.3) mg/dl Intake and Output 11/29/22 11/30/22 11/30/22 22:59 06:59 14:59 Intake Total 500 / 1380 400 / 1380 Balance 500 / 1379 400 / 1379 Intake: IV 500 / 500 Sodium Chloride 0.9% 500 ml @ 500 / 500 75 mls/hr IV .[id number] CONNIE Rx#: [id number] Oral 400 / 880 Other: # Unmeasured Voids 1 1 Weight 91.1 kg Diagnostic Findings Telemetry: Sinus rhythm and sinus bradycardia, rate as low as the 50s. No significant arrhythmia. Pulmonary angiogram yesterday showed no evidence of pulmonary embolism. PG Care Time/CCT Total # of Minutes Spent Total Time Spent with Patient: Total time spent is greater than 50% in coordination of care (as documented) at patient's floor/unit and/or counseling patient: Coding Level of Care Code 22002 SUB INP/OBS CARE 3/50MIN Diagnoses Cardiac arrest I46.9 Cardiomyopathy I25.5 Cardiomyopathy type: ischemic HFrEF (heart failure with reduced ejection fraction) I50.20 Aortic valvular disorder I35.9 (2) Cardiomyopathy Cardiomyopathy type: ischemic Qualified Code(s): I25.5 - Ischemic c ardiomyopathy
[2022-11-30] MEDS ORDERED: diphenhydrAMINE Capsule 25 MG CAP PO SCH (14:00)
[2022-11-30] MEDS ORDERED: predniSONE 50 MG TAB PO ONE (14:00)
[2022-11-30] MEDS ORDERED: WATER, STERILE FOR INJ 10 ML VIAL ONE (14:21)
[2022-11-30] MEDS ORDERED: VANCOMYCIN HCL 1000MG/20ML VIAL ONE (14:21)
[2022-11-30] MEDS ORDERED: LIDOCAINE 1% LOCAL 20 ML VIAL ONE (14:21)
[2022-11-30] MEDS ORDERED: BACITRACIN OINT 0.9 GM PKT ONE (14:22)
[2022-11-30] MEDS ORDERED: fentaNYL citrate PF 100 MCG/2 ML VIAL ONE ×3 (14:31→16:43)
[2022-11-30] MEDS ORDERED: ceFAZolin 330 MG/ML 1 GM VIAL ONE (14:31)
[2022-11-30] MEDS ORDERED: MIDAZOLAM HCL 5 MG/ML 1 ML VIAL ONE (14:31)
--- NOTE | 2022-11-30 14:44 | Pre Anesthesia Assessment ---
Date of Service November 30, 2022 Pre Sedation Assessment Vital Signs Temp Pulse Pulse Resp BP Pulse Ox O2 Del Method 11/30/22 11:44 36.5 C 50 L 18 162/74 H 99 Room Air 11/30/22 07:30 36.8 C 66 18 125/67 Room Air 11/29/22 23:00 47 L 11/30/22 03:04 36.6 C 57 L 18 160/80 H 97 Room Air 11/29/22 20:00 Room Air 11/29/22 23:11 36.7 C 49 L 18 141/71 H 98 Room Air 11/29/22 19:05 36.5 C 57 L 18 159/81 H 97 Room Air 11/29/22 15:51 36.9 C 56 L 18 155/75 H 96 Room Air 11/29/22 15:04 58 L Cardiovascular + regular rate and + regular rhythm + murmur Pre-Sedation Airway Assessment Smoking Status: Never smoker Hx Sleep Apnea: No Short, Thick Neck: No Thyromental Distance: > or= 3.5 Finger Breadths Oral Cavity: + WNL Mallampati Class: IV ASA: ASA3 NPO Status Date of Last Intake of Fluids: 11/30/22 Time of Last Intake of Fluids: 08:00 Date of Last Intake of Solid Food: 11/30/22 Time of Last Intake of Solid Foods: 08:00 Procedure Planning Contraindications for Sedation: none Current Medications Reviewed: Yes Notes The planned sedation has been discussed with the patient. Informed Consent was obtained. I have identified the patient, determined the appropriateness of sedation and have assessed the patient immediately prior to the procedure. All medicine(s) and interventions are by my order.
[2022-11-30] MEDS ORDERED: MIDAZOLAM HCL 1 MG/ML 2ML VIAL ONE (16:43)
[2022-11-30] MEDS ORDERED: ACETAMINOPHEN 325 MG TAB PO PRN (17:45)
[2022-11-30] MEDS ORDERED: ACETAMINOPHEN W/CODEINE #3 1 TAB PO PRN (17:45)
--- NOTE | 2022-11-30 18:03 | Post Anesthesia Assessment ---
Date of Service November 30, 2022 Post Sedation Assessment Vital Signs Temp Pulse Pulse Resp BP Pulse Ox Pulse Ox 11/30/22 06:38 45 L 11/30/22 17:36 61 11/30/22 14:00 99 11/30/22 11:44 36.5 C 50 L 18 162/74 H 99 11/30/22 07:30 36.8 C 66 18 125/67 11/29/22 23:00 47 L 11/30/22 03:04 36.6 C 57 L 18 160/80 H 97 11/29/22 20:00 11/29/22 23:11 36.7 C 49 L 18 141/71 H 98 11/29/22 19:05 36.5 C 57 L 18 159/81 H 97 O2 Del Method O2 Del Method 11/30/22 06:38 11/30/22 17:36 11/30/22 14:00 Room Air 11/30/22 11:44 Room Air 11/30/22 07:30 Room Air 11/29/22 23:00 11/30/22 03:04 Room Air 11/29/22 20:00 Room Air 11/29/22 23:11 Room Air 11/29/22 19:05 Room Air Discharge Sedation Level of Care: Fast Track Phase II Post Sedation Plan On clinical assessment, the patient appears to have tolerated the sedation without complications. Patient is recovering as anticipated. Patient will continue to be monitored by nursing and may be discharged when sedation discharge criteria are met per below protocol. Upon Completions of procedure up to 15 minutes continue every 5 minute vital signs and the P.A.R. score; then discharge to a Phase I or Fast Track to Phase II per the following guidelines: * Discharge Patient to appropriate Phase II area if PAR is 8 or greater or return to pre- procedure baseline. The post - procedure orders will be as directed. * If PAR score is less than 8 or not return to pre-procedure baseline then patient will follow Phase I monitoring till PAR is reached for Phase II. The Phase I may be done in procedure room or may call to secure a Phase I area. * If naloxone or flumazenil are used for reversal, hold in Phase I for continued monitoring from when last reversal dose was given for a minimum of 60 minutes or longer pending the nurse and/or physician discretion of patient condition before discharge to Phase II. Please call the Sedation Physician to re-evaluate and complete post-note for discharge to Phase II area. Do NOT discharge from procedure sedation or Phase 1 until post- sedation evaluation note is complete by procedure /sedation MD Sedation Discharge Instructions to be given to the patient at discharge to home.
--- NOTE | 2022-11-30 18:03 | Electrophysiology Report ---
Date of Service November 30, 2022 Electrophysiology Procedure Electrophysiology Procedure Report Preoperative diagnosis: Left bundle branch block, cardiomyopathy, congestive heart failure Postoperative diagnosis: Same Procedure: Atrial and ventricular defibrillator lead implantation Coronary sinus angiography Attempted left ventricular lead implantation Left bundle branch officer implantation Biventricular ICD implantation Surgeon: Franklin Osorio MD Estimated blood loss: 50 cc Complications: None Disposition: Cardiology recovery Procedure details: After obtaining informed consent for the procedure, the patient was brought to the laboratory and prepped and draped in the standard sterile manner. The left prepectoral region was anesthetized with 1% lidocaine local anesthetic and left axillary venipuncture was performed by percutaneous technique and a guidewire placed through the left subclavian vein into the superior vena cava. The area was further infiltrated with 1% lidocaine local anesthetic and a 5 cm incision was made parallel to the left clavicle and 2 cm below it and carried down to the anterior pectoralis fascia. An ICD pocket was formed by blunt dissection anterior to the pectoralis fascia and a vancomycin- soaked sponge was placed in the pocket. A 10.5 [place] Medtr[employer] lead introducer was placed over the guidewire into the left subclavian vein, the dilator and guidewire were removed and a bipolar active fixation steroid tipped ventricular ICD lead was advanced through the introducer into the superior vena cava. A guidewire was placed through the introducer and the introducer was stripped from the lead and guidewire. An 8.5 [place] Medtr[employer] lead introducer was placed over the guidewire into the left subclavian vein, the dilator and guidewire were removed and a bipolar active fixation steroid tipped atrial lead was advanced through the introducer into the superior vena cava. A guidewire was placed back through the introducer and the introducer was stripped from the lead and guidewire. Using a curved stylette the ventricular lead was advanced through the right ventricular outflow tract into the pulmonary artery and then using a straight stylette was positioned in the right ventricular apex. The screw was extended fixing the lead in position. Pacing and sensing thresholds were evaluated in bipolar configuration and are recorded on the implant data sheet. Diaphragmatic pacing was evaluated at full bipolar output as indicated on the data sheet. Using a curved stylette the atrial lead was positioned in the region of the atrial appendage and the screw extended fixing the lead in position. Pacing and sensing thresholds were evaluated in bipolar configuration and are recorded on the implant data sheet. Diaphragmatic pacing was evaluated at full bipolar output as indicated on the data sheet. Once the leads were in position they were attached to the anterior pectoralis fascia using 1 suture of 2-0 silk around each lead collar. The short guidewire was exchanged for a long guidewire and a [place] coronary sinus sheath was advanced to position in the right atrium. The curved obturator was placed through the sheath and a using x-ray dye and a right angled guiding sheath the os of the coronary sinus was identified. A guidewire was placed through the introducer into the coronary sinus and the [place] sheath was advanced into the coronary sinus. A balloon occlusion catheter was advanced through this sheath into the coronary sinus, the balloon was inflated and dye was injected in various projections to obtain a coronary sinus angiogram. There were no ideal vessels, only 1 vessel was in appropriate position for a coronary sinus lead and although that vessel could be accessed with the guidewire in good distal position the vessel was not large enough to accept a coronary sinus lead. A lower vessel along the inferior portion of heart could also be accessed but this vessel was also tortuous and a lead could not be placed. Ultimately this was abandoned and a left bundle branch officer system was advanced into the right ventricle and a left bundle branch officer was placed in adequate position. The left bundle branch pacing threshold was evaluated and is recorded on the implant data sheet. Diaphragmatic pacing was evaluated at full output, as indicated on the data sheet. Once this lead was in position the introducer system was removed from the lead and the lead was attached to the anterior pectoral fascia using 2 sutures of 2-0 silk around the lead collar. An additional suture of 2-0 silk was placed around each of the atrial and ventricular lead collars as well. The vancomycin-soaked sponge was removed from the pocket, hemostasis was obtained, the ICD was attached to the leads and placed in the pocket with the leads coiled beneath it. The incision was closed with a running double subcutaneous closure of 3-0 Vicryl absorbable suture, followed by running subcuticular skin closure of 4-0 Vicryl absorbable suture. Bacitracin ointment was placed on the incision and a pressure dressing applied. [facility] Electrophysiology codes Indication for Procedure (1) HFrEF (heart failure with reduced ejection fraction): (2) Left bundle branch block: Pacing Procedure 1: Pacin BiV electrode w/Pacer / ICD implant, add on code ICD Procedure 1: ICD: 60457 Insert single or dual ICD system Miscellaneous Procedures Procedure 1: EP Miscellaneous: 92426 Contrast injection for venography Procedure 2: EP Miscellaneous: 55250-94 Venography, CS supevsion/interp PG Moderate Sedation Codes Moderate Sedation Codes Procedure 1: Sedation/Anesthesia: 74681 Mod Sedation by the same physician;Init15 Min Child Age 5 & Up Procedure 2: Sedation/Anesthesia: 12338 Mod Sedation by the same physician; Ea [id number] Minutes
--- NOTE | 2022-11-30 20:13 | Hospitalist Progress Note ---
Date of Service November 30, 2022 Assessment & Plan (1) History of sudden cardiac arrest successfully resuscitated: Plan: s/p asystolic event following administration of echocardiogram dye (Definity contrast) -- 11/26/22 -- in the outpatient cardiology office. Patient received 2 minutes of CPR with subsequent ROSC. Did not require shocks or meds by history. Peak troponin here - 66.2. ACS not suspected. CTA chest without PEs. Echo - EF 40-45% (No change in EF in comparison to 2021 echo); multiple WMAs. Pulmonary HTN - moderate - PAP 40-50mmHg There are case reports of cardiac arrest following Definity contrast but there is still considerable debate over the validity of such reports/studies based on my review of the literature. H/o anterior wall AR in 1983, but heart cath 6 months later at [facility] was apparently normal by report. Uncertain if any heart cath has been done since then. (Did she actually have Takotsubo's in the early ?) Appreciate Dr Montelongo's and Dr Osorio's assistance. Dr Osorio has been concerned that the cause of her event may have been arrhythmia -- v-tach, v-fib, transient heart block, etc -- in light of cardiomyopathy. (by report there were issues getting her on the monitor during the 2-minute priscilla nt thus actual rhythm she was in during such is unknown) Thus, he advised ICD/pacer implantation and patient underwent such today. Stable following her surgery today. (2) Status post implantation of automatic cardioverter/defibrillator (AICD): Plan: appreciate Dr Osorio's assistance monitor overnight cxr in am device to be checked tomorrow by Dr Osorio (3) Elevated d-dimer: Plan: 11,000. Dopplers of legs obtained - no DVT. V/Q scan - low prob for PE. CTA chest NEGATIVE for PEs. Elevated dimer due to the trauma of her CPR and subsequent fractures? (trauma is a known cause of elevated d-dimer) No other obvious cause of her elevated d-dimer. (4) Chest wall pain: Plan: 2nd b/l rib fractures & sternal fracture from chest compressions tylenol 1gm TID lidoderms oxy prn (5) Hypomagnesemia: Plan: present on admission --> severe 2nd to diuretic usage at home? repleted resolved would keep people on mag supplementation with mag oxide 400mg daily or BID depending on how much diuretic she uses of note - a review of the EMR shows she has had frequently low mag levels in the past (6) Abnormal LFTs: Plan: etiology? 2nd to liver irritation from chest compressions? if the abnormal LFTs was due to shock / cardiac arrest the values would have been in the hundreds or higher. most recent LFTs improved / nearly normal can cont statin (7) Hypertension: Plan: Continue Amlodipine 5mg po daily Continue beta miriam (metoprolol dose was temporarily reduced to 25mg BID due to bradycardia -- can resume larger dose now that ICD/pacer is in place) (8) Type 2 diabetes mellitus: Plan: oral agents on hold a1c 6.4% BSGs now uncontrolled due to prednisone protocol increase lantus to 15 units BID increase/adjust novolog parameters hyperglycemia likely to continue well into tomorrow (received 2 additional doses of prednisone today in prep for contrast) (9) Asthma: Plan: no exacerbation at this time Continue Albuterol PRN Continue Fluticasone/Vilanterol (10) CAD (coronary artery disease): Plan: Patient reports history of AR at age 38. She reports having a catheterization 6 months after and was told that she had normal coronary arteries. Did she have Takotsubo's in 1983? (literature suggests that this condition was not given the formal Takotsubo's name until the so thus perhaps she had Takotsubo's in ?) Either way she remains on Atorvastatin, beta miriam. Is not on anti-platelet agents. (11) GERD (gastroesophageal reflux disease): Plan: Continue Protonix (12) Cardiomyopathy: Plan: EF 40-45% chronic systolic CHF etiology of cardiomyopathy - WMAs suggest ischemia other than edema of legs she otherwise appears compensated CTA chest without pulmonary edema (13) Paroxysmal atrial fibrillation: Plan: remains in NSR on tele continue beta miriam is not on chronic anticoagulation (14) Dyslipidemia: Plan: cont Atorvastatin (15) Chronic kidney disease, stage IV (severe): Plan: baseline CrCl high 20s/about 30 Creatinine 1.5 today repeat BMP am to ensure stability (16) Closed fracture of multiple ribs of both sides: Plan: Acute nondisplaced fractures of the anterior right 2nd through 6th ribs and the anterior left 2nd through 5th ribs. No pneumothorax. 2nd to chest compressions during cardiac arrest 11/26/22. Cont scheduled tylenol 1gm TID. Cont lidoderm patches. Cont oxycodone prn. 25-OH vit D level 54 in October 2022. (17) Sternal fracture: Plan: Acute minimally displaced inferior sternal fracture. 2nd to chest compressions during cardiac arrest 11/26/22. Lidoderms, tylenol, oxycodone prn. Plan DVT proph - heparin 5000 BID updated pt's at bedside today care d/w Dr Osorio appreciate his assistance needs PT/OT evals to ensure safe for home w/ Admission and Anticipated Discharge Date Admission Date: November 26, 2022 Subjective I saw Mrs Sousa post-ICD implantation was resting comfortably only complaint is chest wall pain from her rib fractures & sternal fracture denied any complaints with respect to ICD site no dyspnea had bowel movement just prior to going for ICD placement she is ambulating in the room without dizziness or lightheadedness eating well at bedside during the visit Review of Systems Review of Systems: cv - chest wall pain pulm - no cough, no congestion, no dyspnea, no BLAIR; just hurts to take deep breaths GI - no abd pain/nausea/emesis - no LUTS Physical Exam Physical Exam: gen - pleasant, NAD, comfortable appearing neck - no JVD mouth - MMM heart - RRR, s1 s2, 2/6 systolic murmur RUSB/LSB lungs - decreased BS bases, fair airation, no rales or wheezing chest - tender to palpation mid chest/sternal region as previous abd - soft NT ND BS+ ext - 1+ edema b/l, pulses 2+ b/l psych - a/o x 3 Results & Data Results & Data Vital Signs (Past 12 Hours) Vital Signs Temp Pulse Pulse Resp BP BP Pulse Ox 11/30/22 19:45 65 18 170/81 H 95 11/30/22 19:09 36.8 C 72 18 141/83 H 96 11/30/22 18:15 36.8 C 74 18 159/88 H 95 11/30/22 18:05 75 16 169/83 H 92 11/30/22 17:36 61 11/30/22 14:00 11/30/22 11:44 36.5 C 50 L 18 162/74 H 99 Pulse Ox O2 Del Method O2 Del Method 11/30/22 19:45 Room Air 11/30/22 19:09 Room Air 11/30/22 18:15 Room Air 11/30/22 18:05 Room Air 11/30/22 17:36 11/30/22 14:00 99 Room Air 11/30/22 11:44 Room Air Laboratory Results Laboratory Results - last 24 hr 11/29/22 11/30/22 11/30/22 20:21 05:52 05:52 Sodium 138 Potassium 4.9 Chloride 107 Carbon Dioxide 23 Anion Gap 8 BUN 42 H Creatinine 1.58 H Est Cr Clr Drug Dosing 31.8 Est GFR ( Amer) 36.5 Est GFR (Non-Af Amer) 31.5 BUN/Creatinine Ratio 26.6 H Glucose 180 H POC Glucose 195 H Estimat Average Glucose 137 Hemoglobin A1c 6.4 H Calcium 9.1 11/30/22 11/30/22 11/30/22 07:28 12:41 18:08 Sodium Potassium Chloride Carbon Dioxide Anion Gap BUN Creatinine Est Cr Clr Drug Dosing Est GFR ( Amer) Est GFR (Non-Af Amer) BUN/Creatinine Ratio Glucose POC Glucose 172 H 178 H 224 H Estimat Average Glucose Hemoglobin A1c Calcium 11/30/22 20:06 Sodium Potassium Chloride Carbon Dioxide Anion Gap BUN Creatinine Est Cr Clr Drug Dosing Est GFR ( Amer) Est GFR (Non-Af Amer) BUN/Creatinine Ratio Glucose POC Glucose 271 H Estimat Average Glucose Hemoglobin A1c Calcium PG Care Time/CCT Total # of Minutes Spent Total Time Spent with Patient: Total time spent is greater than 50% in coordination of care (as documented) at patient's floor/unit and/or counseling patient: Coding Level of Care Code 05412 SUB INP/OBS CARE 2/35MIN Diagnoses History of sudden cardiac arrest successfully resuscitated Z86.74 Status post implantation of automatic cardioverter/defibrillator (AICD) Z95.810 Elevated d-dimer R79.89 Chest wall pain R07.89 Hypomagnesemia E83.42 Abnormal LFTs R79.89 Hypertension I10 Hypertension type: essential hypertension Type 2 diabetes mellitus E11.22; N18.3 Chronic kidney disease stage: stage 3 (moderate) Diabetes mellitus complication detail: with chronic kidney disease Diabetes mellitus complication status: with kidney complications Diabetes mellitus maintenance assistant insulin use: without maintenance assistant use Asthma J45.909 Asthma complication type: unspecified Asthma persistence: unspecified Asthma severity: unspecified severity CAD (coronary artery disease) I25.10 Associated angina: without angina Coronary Disease-Associated Artery/Lesion type: unspecified vessel or lesion type [place] vs. transplanted heart: [place] heart GERD (gastroesophageal reflux disease) K21.9 Esophagitis presence: esophagitis presence not specified Cardiomyopathy I25.5 Cardiomyopathy type: ischemic Paroxysmal atrial fibrillation I48.0 Dyslipidemia E78.5 Chronic kidney disease, stage IV (severe) N18.4 Closed fracture of multiple ribs of both sides S22.43XA Sternal fracture S22.20XA (7) Hypertension Hypertension type: essential hypertension Qualified Code(s): I10 - Essential (primary) hypertension (8) Type 2 diabetes mellitus Chronic kidney disease stage: stage 3 (moderate) Diabetes mellitus complication detail: with chronic kidney disease Diabetes mellitus complication status: with kidney complications Diabetes mellitus penitentiary insulin use: without maintenance assistant use Qualified Code(s): E11.22 - Type 2 diabetes mellitus with diabetic chronic kidney disease; N18.3 - Chronic kidney disease, stage 3 (moderate) (9) Asthma Asthma complication type: unspecified Asthma persistence: unspecified Asthma severity: unspecified severity Qualified Code(s): J45.909 - Unspecified asthma, uncomplicated (10) CAD (coronary artery disease) Associated angina: without angina Coronary Disease-Associated Artery/Lesion type: unspecified vessel or lesion type [place] vs. transplanted heart: [place] heart Qualified Code(s): I25.10 - Atherosclerotic heart disease of [place] co ronary artery without angina pectoris (11) GERD (gastroesophageal reflux disease) Esophagitis presence: esophagitis presence not specified Qualified Code(s): K21.9 - Gastro-esophageal reflux disease without esophagitis (12) Cardiomyopathy Cardiomyopathy type: ischemic Qualified Code(s): I25.5 - Ischemic cardiomyopathy
[2022-11-30] MEDS: PANTOprazole 40 MG TAB PO SCH (20:23)
[2022-11-30] MEDS: FLUTICASONE/VILANTEROL 200/25MCG 14 PUFFS/INHALER INH SCH (20:25)
[2022-11-30] MEDS: oxyCODONE HCL IR 5 MG TAB (IMMEDIATE RELEASE) PO PRN (22:55)
[2022-12-01] MEDS: oxyCODONE HCL IR 5 MG TAB (IMMEDIATE RELEASE) PO PRN ×2 (02:56→08:44)
[2022-12-01 06:30] LABS: BUN Creatinine Ratio 27.4 (10-20); Calcium 9.3 mg/dl (8.6-10.3); Creatinine Clr Calc Pharmacy 28.7 ml/min; Est GFR (African American) 32.2 ml/min; Est GFR (Non-African American) 27.8 ml/min; Potassium 4.8 mmol/L (3.5-5.1)
--- NOTE | 2022-12-01 07:17 | XRay Report ---
XR chest 2V PA/lateral CLINICAL HISTORY: Pacemaker insertion. COMPARISON STUDY: Chest CT November 29, 2022. FINDINGS: There is no pneumothorax following placement of a left subclavian pacer/AICD. No evidence f or pulmonary edema. There are trace bilateral pleural effusions. Cardiomegaly is unchanged. There is no consolidation to suggest pneumonia. Linear left basilar opacity favors atelectasis. IMPRESSION: 1. No pneumothorax following placement of a left subclavian pacer/AICD. 2. Trace bilateral pleural effusions. Linear left basilar opacity suggestive of atelectasis. ACT 112: Negative or not required by law. Electronically signed by: Adan Snider M.D. 12/01/2022 7:16 AM
--- NOTE | 2022-12-01 07:39 | Hospitalist Progress Note ---
Date of Service December 01, 2022 Assessment & Plan (1) History of sudden cardiac arrest successfully resuscitated: Plan: s/p asystolic event following administration of echocardiogram dye (Definity contrast) -- 11/26/22. Patient received 2 minutes of CPR with subsequent ROSC. Did not require shocks or meds by history. Hypomagnesemia present on admission, replete, may have influence arrhythmia Peak troponin here - 66.2. ACS not suspected. reportedly had IA age 38, clean cath, has non ischemia, chronic systolic HF stable, remains on statin CTA chest today without PEs., pt with sternal fracture and rib fractures, tylenol, lidodrem Echo - EF 40-45% (No change in EF in comparison to 2021 echo); multiple WMAs. Pulmonary HTN - moderate - PAP 40-50mmHg There are case reports of cardiac arrest following Definity contrast AICD placement 11/30 (2) Elevated d-dimer: Plan: 11,000. Dopplers of legs obtained - no DVT. V/Q scan - low prob for PE. CTA chest with Dye allergy prophylaxis, 11/29/22 negative for pe. (3) Hypertension: Plan: Continue Amlodipine metoprolol (4) Type 2 diabetes mellitus: Plan: oral agents on hold checking a1c 6.4 BSGs uncontrolled due to prednisone protocol basal bolus insulin (5) Paroxysmal atrial fibrillation: Plan: remains in NSR on tele continue beta miriam is not on chronic anticoagulation (6) Chronic kidney disease, stage IV (severe): Plan: baseline CrCl high 20s/about 30 Creatinine 1.7 today and CrCl just shy of 30 no ill affects from contrast administration (7) Asthma: Plan: no exacerbation at this time Continue Albuterol PRN Continue Fluticasone/Vilanterol (8) GERD (gastroesophageal reflux disease): Plan: Continue Protonix Plan DVT proph - heparin 5000 BID Admission and Anticipated Discharge Date Admission Date: November 26, 2022 Results & Data Results & Data Vital Signs (Past 12 Hours) Vital Signs Temp Pulse Pulse Resp BP Pulse Ox O2 Del Method 12/01/22 02:47 97.9 F 60 18 164/83 H 97 Room Air 11/30/22 23:00 60 11/30/22 22:49 97.5 F L 60 18 157/79 H 99 Room Air 11/30/22 21:30 62 17 147/77 H 99 Room Air 11/30/22 19:45 65 18 170/81 H 95 Room Air PG Care Time/CCT Total # of Minutes Spent Total Time Spent with Patient: Total time spent is greater than 50% in coordination of care (as documented) at patient's floor/unit and/or counseling patient: Coding Diagnoses History of sudden cardiac arrest successfully resuscitated Z86.74 Elevated d-dimer R79.89 Hypertension I10 Hypertension type: essential hypertension Type 2 diabetes mellitus E11.22; N18.3 Diabetes mellitus watermaster insulin use: without watermaster use Diabetes mellitus complication status: with kidney complications Diabetes mellitus complication detail: with chronic kidney disease Chronic kidney disease stage: stage 3 (moderate) Paroxysmal atrial fibrillation I48.0 Chronic kidney disease, stage IV (severe) N18.4 Asthma J45.909 Asthma severity: unspecified severity Asthma persistence: unspecified Asthma complication type: unspecified GERD (gastroesophageal reflux disease) K21.9 Esophagitis presence: esophagitis presence not specified (3) Hypertension Hypertension type: essential hypertension Qualified Code(s): I10 - Essential (primary) hypertension (4) Type 2 diabetes mellitus Diabetes mellitus watermaster insulin use: without watermaster use Diabetes mellitus complication status: with kidney complications Diabetes mellitus complication detail: with chronic kidney disease Chronic kidney disease stage: stage 3 (moderate) Qualified Code(s): E11.22 - Type 2 diabetes mellitus with diabetic chronic kidney disease; N18.3 - Chronic kidney disease, stage 3 (moderate) (7) Asthma Asthma severity: unspecified severity Asthma persistence: unspecified Asthma complication type: unspecified Qualified Code(s): J45.909 - Unspecified asthma, uncomplicated (8) GERD (gastroesophageal reflux disease) Esophagitis presence: esophagitis presence not specified Qualified Code(s): K21.9 - Gastro-esophageal reflux disease without esophagitis
[2022-12-01] MEDS: INSULIN ASPART PER UNIT CHARGE SC SCH ×2 (08:43→11:50)
[2022-12-01] MEDS: LANTUS PER UNIT CHARGE SQ SCH (08:44)
[2022-12-01] MEDS: ACETAMINOPHEN 500 MG TAB PO SCH (08:45)
[2022-12-01] MEDS: amLODIPine BESYLATE 5 MG TAB PO SCH (08:46)
[2022-12-01] MEDS: BRIMONIDINE TARTRATE-P 0.15% 5 ML BTL OPB SCH (08:47)
[2022-12-01] MEDS: ATORVASTATIN 20 MG TAB PO SCH (08:47)
[2022-12-01] MEDS: HEPARIN SOD 5,000 UNIT/0.5 ML VIAL SQ SCH (08:47)
[2022-12-01] MEDS: DORZOLAMIDE HCL 2% OPH SOLN 10 ML BTL OP SCH (08:47)
[2022-12-01] MEDS: METOPROLOL TARTRATE 50 MG TAB PO SCH (08:48)
[2022-12-01] MEDS: LIDOCAINE 5% 1 PATCH TD SCH (08:48)
[2022-12-01] MEDS: MAGNESIUM OXIDE 400 MG TAB PO SCH (08:48)
--- NOTE | 2022-12-01 08:54 | Electrocardiogram Report ---
Test Reason : Blood Pressure : / mmHG Vent. Rate : 073 BPM Atrial Rate : 073 BPM P-R Int : 126 ms QRS Dur : 162 ms QT Int : 474 ms P-R-T Axes : 047 -50 126 degrees QTc Int : 522 ms Suspect unspecified pacemaker failure Atrial-sensed ventricular-paced rhythm Abnormal ECG When compared with ECG of 26-NOV-2022 10:44, Electronic ventricular pacemaker has replaced Sinus rhythm Confirmed by Ajay Baker ([id number]) on 12/01/2022 8:53:53 AM Referred By: REFERRED SELF Confirmed By:Ajay Baker
--- NOTE | 2022-12-01 09:43 | Cardiology Progress Note ---
Date of Service December 01, 2022 Assessment & Plan (1) Status post implantation of automatic cardioverter/defibrillator (AICD): Plan: She is doing well post ICD implantation, the site looks good, the device is working well and leads are in good position. She is stable for discharge from my standpoint. I will arrange follow-up. Admission and Anticipated Discharge Date Admission Date: November 26, 2022 Subjective She is feeling well, she continues to have chest wall pain but no significant incisional discomfort, no chest discomfort and no shortness of breath Physical Exam Physical Exam: The device incision is clean and dry, no swelling or bleeding Cardiac rhythm is regular with no rub Lungs are clear Results & Data Vital Signs (Past 12 Hours) Vital Signs Temp Pulse Pulse Resp BP Pulse Ox O2 Del Method 12/01/22 08:02 36.8 C 60 18 156/80 H 94 Room Air 12/01/22 02:47 36.6 C 60 18 164/83 H 97 Room Air 11/30/22 23:00 60 11/30/22 22:49 36.4 C L 60 18 157/79 H 99 Room Air Laboratory Results Comprehensive Metabolic Panel 12/01/22 Range/Units 05:46 Sodium 138 (136-145) mmol/L Potassium 4.8 (3.5-5.1) mmol/L Chloride 107 (98-107) mmol/L Carbon Dioxide 23 (21-32) mmol/L BUN 48 H (6-23) mg/dl Creatinine 1.75 H (0.6-1.2) mg/dl Glucose 184 H (70-99(Fasting)) mg/dl Calcium 9.3 (8.6-10.3) mg/dl Intake and Output 11/30/22 12/01/22 12/01/22 22:59 06:59 14:59 Intake Total 200 / 300 100 / 300 Balance 200 / 300 100 / 300 Intake: Oral 200 / 300 100 / 300 Other: # Unmeasured Voids 1 Weight 91 kg Diagnostic Findings Telemetry: Normal dual-chamber pacemaker function Chest x-ray: Good lead position, no pneumothorax Postop ECG: Improved although not ideal paced complex, appropriate pacemaker function ICD evaluation: Excellent pacing and sensing characteristics PG Care Time/CCT Total # of Minutes Spent Total Time Spent with Patient: Total time spent is greater than 50% in coordination of care (as documented) at patient's floor/unit and/or counseling patient: Coding Level of Care Code 99535 Post Operative Follow-Up Diagnoses Status post implantation of automatic cardioverter/defibrillator (AICD) Z95.810 CPT Codes Implantable Defib Multi lead programming - 82496 ([id number])
--- NOTE | 2022-12-01 18:53 | Discharge Summary ---
Date of Service December 01, 2022 Admission HPI Per Admitting Provider Nata Sousa is a pleasant 77yo female with history of HTN, HLP, DM, CKD- IV, CAD s/p RI at age 38, HFrEF (moderate LV systolic dysfunction, mild concentric LVH, Akinesis of the LV apex and distal inferior segment, mild LA dilation, mild AR, TR, Trace MR per echo 10/07/2021) presenting from clinic after sustaining a cardiac arrest. Patient was having a routine outpatient echocardiogram performed with administration of dye. She remembers being told that the dye would only be in her system for 5 minutes, then she recalls becoming nauseated then waking up with people working on her. She reportedly had agonal breathing and went asystolic. She received 2 minutes of CPR with ROSC. No shocks or additional ACLS medications given. She was administered 50mg IV Benadryl by EMS and brought to the ER. Patient presently complaining of chest soreness with movement and breathing. Otherwise has no complaints. Specifically denies chest pain, palpitations, dizziness, cough, SOB, abdominal pain, nausea, vomiting, constipation. She recently had Rhinovirus and had bronchitis but reports that she has recovered from this. No recent medication changes. She did take her AM medications as prescribed. She recalls history of an allergic reaction with IV contrast dye in the past during a CT scan. Has never received dye with an echocardiogram before. ER Course: Zofran 4mg IV Morphine 4mg IV NSS x 500mL Principal Diagnosis Sudden cardiac arrest Systolic heart failure Implantation of the pacemaker/AICD Rib fractures secondary to CPR Discharge Exam Awake alert not dyspneic cardiac exam is regular lungs are clear she is tender to the sternum her AICD site at the left upper chest is clean dry and intact there is a dressing in place Discharge Data Allergies Allergy/AdvReac Type Severity Reaction Status Date / Time perflutren [From Definity] Allergy Severe Unresponsiv Verified 11/29/22 12:38 e Iodinated Contrast Media Allergy Unknown HIVES, Verified 10/29/22 10:32 ITCHING Consultations 11/26/22 11:39 ED Decision to Admit Stat 11/26/22 14:39 Consult Cardiology Routine Procedures Performed Operation Date: 11/30/22 14:30 Actual Procedures p ICD Biventricular Implant - Franklin Osorio MD Ordered Studies 11/26/22 10:54 CT head/brain wo con Stat 11/27/22 10:17 US venous doppler LE BI Urgent 11/29/22 12:00 CT angio chest PE protocol Routine 11/30/22 14:30 EP Lab Images for PACS ONCE Hospital Course (1) History of sudden cardiac arrest successfully resuscitated: s/p asystolic event following administration of echocardiogram dye (Definity contrast) -- 11/26/22 -- in the outpatient cardiology office. Patient received 2 minutes of CPR with subsequent ROSC. Did not require shocks or meds by history. Peak troponin here - 66.2. ACS not suspected. CTA chest without PEs. Echo - EF 40-45% (No change in EF in comparison to 2021 echo); multiple WMAs. Pulmonary HTN - moderate - PAP 40-50mmHg There are case reports of cardiac arrest following Definity contrast but there is still considerable debate over the validity of such reports/studies based on my review of the literature. H/o anterior wall RI in 1983, but heart cath 6 months later at [facility] was apparently normal by report. Uncertain if any heart cath has been done since then. (Did she actually have Takotsubo's in the early 1980s?) Appreciate Dr Montelongo's and Dr Osorio's assistance. Dr Osorio has been concerned that the cause of her event may have been arrhythmia -- v-tach, v-fib, transient heart block, etc -- in light of cardiomyopathy. (by report there were issues getting her on the monitor during the 2-minute event thus actual rhythm she was in during such is unknown) Thus, he advised ICD/pacer implantation and patient underwent such 11/30/2022. (2) Status post implantation of automatic cardioverter/defibrillator (AICD): appreciate Dr Osorio's assistance monitor overnight showed no events overnight cxr in am shows no pneumothorax device to be checked as an outpatient this week by Dr Osorio (3) Elevated d-dimer: 11,000. Dopplers of legs obtained - no DVT. V/Q scan - low prob for PE. CTA chest NEGATIVE for PEs. Elevated dimer due to the trauma of her CPR and subsequent fractures? (trauma is a known cause of elevated d-dimer) No other obvious cause of her elevated d-dimer. (4) Chest wall pain: 2nd b/l rib fractures & sternal fracture from chest compressions tylenol 1gm TID lidoderms patient will use wayb-[id number] oxy prn short supply prescription given at discharge (5) Hypomagnesemia: present on admission --> severe 2nd to diuretic usage at home? repleted resolved would keep mag supplementation with mag oxide 400mg daily or BID of note - a review of the EMR shows she has had frequently low mag levels in the past (6) Abnormal LFTs: 2nd to liver irritation from chest compressions? if the abnormal LFTs was due to shock / cardiac arrest the values would have been in the hundreds or higher. most recent LFTs improved / nearly normal can cont statin (7) Hypertension: Continue Amlodipine 5mg po daily Continue beta miriam (metoprolol dose was temporarily reduced to 25mg BID due to bradycardia --patient discharged metoprolol follow-up with cardiology (8) Type 2 diabetes mellitus: a1c 6.4% BSGs now uncontrolled due to prednisone protocol Patient now off prednisone from her eye prophylaxis return to home diabetic management dosing of oral agents (9) Asthma: no exacerbation at this time Continue Albuterol PRN Continue Fluticasone/Vilanterol (10) CAD (coronary artery disease): Patient reports history of RI at age 38. She reports having a catheterization 6 months after and was told that she had normal coronary arteries. Did she have Takotsubo's in 1983? (literature suggests that this condition was not given the formal Takotsubo's name until the so thus perhaps she had Takotsubo's in ?) Either way she remains on Atorvastatin, beta miriam. Is not on anti-platelet agents. (11) GERD (gastroesophageal reflux disease): Continue Protonix (12) Paroxysmal atrial fibrillation: remains in NSR on tele continue beta miriam is not on chronic anticoagulation (13) Dyslipidemia: cont Atorvastatin (14) Chronic kidney disease, stage IV (severe): baseline CrCl high 20s/about 30 Creatinine 1.5 today repeat BMP am to ensure stability (15) Closed fracture of multiple ribs of both sides: Acute nondisplaced fractures of the anterior right 2nd through 6th ribs and the anterior left 2nd through 5th ribs. No pneumothorax. 2nd to chest compressions during cardiac arrest 11/26/22. Cont scheduled tylenol 1gm TID. Cont lidoderm patches. Cont oxycodone prn. 25-OH vit D level 54 in October 2022. (16) Sternal fracture: Acute minimally displaced inferior sternal fracture. 2nd to chest compressions during cardiac arrest 11/26/22. Lidoderms, tylenol, oxycodone prn. 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 SPECIAL CARE INSTRUCTIONS: * If bleeding occurs, apply direct pressure to area for 5 minutes. * Call your doctor if you have severe pain, fever, drainage or bleeding at site. * Keep dressing on and dry for 48 hours then remove. * Keep any scheduled doctor's appointment. * Implant Card - hand held device with website information given. SKIN IRRITATION: * You may experience some redness and/or swelling in the area where radiation was administered. If any skin irritation occurs, please contact your family physician. FOLLOW UP VISIT: Keep any scheduled doctor appointments. Pending Studies at Discharge: No Stand-Alone Forms: My [facility], Smoking Cessation Medications and DC Order Prescriptions: New magnesium oxide 400 mg (241.3 mg magnesium) Tablet 400 mg PO BID Qty: 60 5RF metoprolol tartrate 50 mg Tablet 50 mg PO BID Qty: 60 2RF oxycodone 5 mg Tablet 5 mg PO Q4H PRN (Reason: pain) Qty: 20 0RF Continued multivitamin Tablet 1 tab PO QPM Qty: 0 Patient Comments: CENTRUM ferrous sulfate 325 mg (65 mg iron) Tablet 325 mg PO BID Qty: 0 Calcium 600 with Vitamin D3 600 mg(1,500mg) -400 unit Tablet,Chewable 1 tab PO QPM Qty: 0 dorzolamide 2 % drops 1 drp ophthalmic (eye) BID Qty: 0 (DME) OneTouch Ultra Blue Test Strip Strip See Rx Instructions .ROUTE .MEDSUPPLY Qty: 200 1RF Rx Instructions: Test blood sugars twice daily (DME) blood-glucose meter [OneTouch Ultra2 Meter] Kit See Rx Instructions .ROUTE .MEDSUPPLY Qty: 1 0RF Rx Instructions: Use to test blood sugars twice daily Janumet 50-500 mg tablet 1 tab PO QAM Qty: 90 3RF pantoprazole 40 mg tablet,delayed release (DR/EC) See Rx Instructions .ROUTE .COMPLEX Qty: 90 3RF Dose Instruction: TAKE 1 TABLET DAILY IN THE EVENING Rx Instructions: TAKE 1 TABLET DAILY IN THE EVENING fluticasone furoate-vilanterol [Breo Ellipta] 200-25 mcg/dose blister with device 1 inh INH QPM Qty: 90 1RF torsemide 10 mg tablet 10 mg PO UD PRN (Reason: ANKLE SWELLING ) Qty: 90 3RF amlodipine [Norvasc] 5 mg tablet 5 mg PO QAM Qty: 90 3RF triamcinolone acetonide [Kenalog] 40 mg/mL suspension 60 mg IM DAILY Qty: 1.5 0RF Rx Instructions: uses when she gets sick where she has asthma. metformin 500 mg tablet extended release 24hr 1,000 mg PO QPM Qty: 180 3RF albuterol sulfate [Ventolin HFA] 90 mcg/actuation HFA aerosol inhaler 2 puff INHALATION Q6H PRN (Reason: Shortness Of Breath Or Wheezing) Qty: 1 0RF (DME) Aerochamber Plus Z Stat Spacer See Rx Instructions .ROUTE .MEDSUPPLY Qty: 1 0RF Rx Instructions: As directed chromium picolinate 1,000 mcg Tablet 1,000 mcg PO QPM Rx Instructions: per pt she takes AM brimonidine 0.15 % Drops 1 drp OPB BID atorvastatin 20 mg tablet 20 mg PO QAM Discontinued nebivolol [Bystolic] 10 mg tablet 10 mg PO DAILY Qty: 90 3RF Discharge Orders: Discharge Order (Routine); Ordered 12/01/22 Ordered By: Joshua Prince/Other Patient Handouts: Managing Type 2 Diabetes Admission Data Admit Date/Time: 11/26/22 12:03 Attending Provider: Joshua Sellers Admit Provider: Rosalie Jimenez Primary Care Provider: Nuria Turner V. Other Providers: Rosalie Jimenez ; Nacho Montelongo Other Interventions: Discharge Summary Assessment (RN) Last Done: 12/01/22 12:38 Coding Level of Care Code 86028 INP/OBS DISCH >30 MIN Diagnoses History of sudden cardiac arrest successfully resuscitated Z86.74 Status post implantation of automatic cardioverter/defibrillator (AICD) Z95.810 Elevated d-dimer R79.89 Chest wall pain R07.89 Hypomagnesemia E83.42 Abnormal LFTs R79.89 Hypertension I10 Hypertension type: essential hypertension Type 2 diabetes mellitus E11.22; N18.3 Diabetes mellitus assistant analyst insulin use: without assisted use Diabetes mellitus complication status: with kidney complications Diabetes mellitus complication detail: with chronic kidney disease Chronic kidney disease stage: stage 3 (moderate) Asthma J45.909 Asthma severity: unspecified severity Asthma persistence: unspecified Asthma complication type: unspecified CAD (coronary artery disease) I25.10 Coronary Disease-Associated Artery/Lesion type: unspecified vessel or lesion type [place] vs. transplanted heart: [place] heart Associated angina: without angina GERD (gastroesophageal reflux disease) K21.9 Esophagitis presence: esophagitis presence not specified Paroxysmal atrial fibrillation I48.0 Dyslipidemia E78.5 Chronic kidney disease, stage IV (severe) N18.4 Closed fracture of multiple ribs of both sides S22.43XA Sternal fracture S22.20XA
--- NOTE | 2022-12-02 09:28 | Coding Query ---
CODING QUERY To promote full compliance with coding requirements relating to patient care, provider participation is requested in all cases of gaming manager uncertainty. Please assist us with the question(s) below: Coding Question(s): Patient admitted status post cardiac arrest after IV Definity contrast with echo. implanted COMPLEX CARE NURSE-D defibillator with leads for LBBB . with concerns for arrhythmias. Please document, if known or suspected, the etiology of the cardiac arrest upon admission. Thanks for your help. Gerard Woodward [facility] Physician's Response(s): Principal Diagnosis: "that condition established after study, to be chiefly responsible for occasioning the admission of the patient to the hospital for care." Co-Existing Principal Diagnosis: "when two or more diagnoses equally meet the criteria for principal diagnosis as determined by the circumstances of admission, diagnostic work up, and/or therapy provided, and the Alphabetic Index, Tabular List, or another coding guideline does not provide sequencing direction, any one of the diagnoses may be sequenced first." "When the physician has documented what appears to be a current diagnosis in the body of the record, but has not included the diagnosis in the final diagnostic statement, the physician should be asked whether the diagnosis should be added." (Source Coding Clinic 2 QTR90. p3-4) [place]
== END 2022-12-01 13:50 | disposition home or self-care (01) | DRG 227 ==
LOC: ED 10:40 → 2E 12:03 → SUATTDRO 12:03 → 2E 14:45
PROC: EPB.ICD (2022-11-30 14:30)